=== PATIENT | female | born 1945 | race Caucasian/White ===

== ENCOUNTER 2024-10-12 13:22 | Inpatient (IN) ==
--- NOTE | 2024-10-12 14:34 | Emergency Department Note ---
ED Provider Note History of Present Illness Chief Complaint: Hip Pain Stated Complaint: PAIN IN R HIP, NUMBNESS IN LEG/FOOT Time Seen by Provider: 10/12/24 13:40 79-year-old female who presents to the emergency department with her daughter for evaluation of pain in both thighs, right worse than left. She reports that the pain goes all the way down to her feet. The patient reports that the pain is significantly worsened when she tries to get up and move, improved whenever she rests. The patient reports that she has already seen her PCP with lumbar spine x-rays that were reportedly normal. The patient was also on a course of Flexeril and steroids without relief. The patient was not provided any additional prescription analgesics. The patient denies prior back injuries or other arthritis history. She also denies any swelling of the lower extremities, or personal or family history of blood clots. The patient denies any difficulty with urination or bowel movements, abdominal pain or recent infections. At its worst, the patient rates her discomfort a 10 out of 10. The patient's daughter reports that she has to go up 18 steps to get to the second level to her bedroom, and is having difficulty doing so. She also has a deformity of her left upper extremity, and even with using a cane, she is finding it more difficult to ambulate because of the pain. Home Medications Medication Instructions Recorded Confirmed Type aspirin 81 mg chewable tablet 81 mg PO DAILY #0 tabs 05/08/12 10/12/24 History cholecalciferol (vitamin D3) 50 50 mcg PO DAILY #0 caps 05/08/12 10/12/24 History mcg (2,000 unit) tablet (Vitamin D3) clobetasol 0.05 % topical cream 1 applic topical BID PRN reaction 05/08/12 10/12/24 History ##0 fenofibrate micronized 200 mg 200 mg PO DAILY #0 caps 05/08/12 10/12/24 History capsule oxybutynin chloride 5 mg tablet 5 mg PO TID #0 tabs 05/08/12 10/12/24 History calcium carbonate (Calcium 600) 600 mg PO DAILY 10/12/24 10/12/24 History chlorthalidone 25 mg tablet 25 mg PO DAILY 10/12/24 10/12/24 History cyanocobalamin (vitamin B-12) 500 500 mcg PO DAILY 10/12/24 10/12/24 History mcg tablet (Vitamin B-12) lorazepam 1 mg tablet 1 mg PO BID PRN Anxiety/Stress 10/12/24 10/12/24 History losartan 50 mg tablet 50 mg PO DAILY 10/12/24 10/12/24 History prednisone 10 mg tablets in a dose 10 mg PO DIRECTED 10/12/24 10/12/24 History pack vitamin E 268 mg (400 unit) capsule 268 mg PO DAILY 10/12/24 10/12/24 History Allergies Allergy/AdvReac Type Severity Reaction Status Date / Time amoxicillin [From Augmentin] Allergy Intermediate Diarrhea Unverified 10/12/24 17:43 clavulanic acid Allergy Intermediate Diarrhea Unverified 10/12/24 17:43 [From Augmentin] Sulfa (Sulfonamide Allergy Intermediate Agitated Unverified 10/12/24 17:44 Antibiotics) simvastatin AdvReac Intermediate lichen Verified 10/12/24 17:43 planus rash when dose was increased Past Med/Surg History Problem List Low back pain potentially associated with radiculopathy Ambulatory dysfunction Left leg DVT Pain in both lower extremities (Acute) Thrombosis of both popliteal veins (Acute) Acute UTI (Acute) Medical History Carotid artery stenosis HLD (hyperlipidemia) HTN (hypertension) Female urinary stress incontinence (Unknown) Cholelithiasis without obstruction (Unknown) Surgical History No significant past surgical history Social History Smoking Status: Former smoker Preferred Language: Arabic marital status: Current Living Situation: Spouse and Family Feels Safe at Home: Yes Physical Exam Vital Signs Vital Signs - 24 hr 10/12/24 13:33 10/12/24 13:40 Temperature 36.3 C L Temperature Source Temporal Artery Scan Pulse Rate 85 Respiratory Rate 19 Respiratory Effort / Characteristics Non-Labored Spontaneous Respiratory Depth Normal Normal Respiratory Pattern Regular Blood Pressure 160/65 H Blood Pressure Mean 96 Pulse Oximetry 96 Oxygen Delivery Method Room Air Sepsis Recent Fever Within 48 Hours No Sepsis New/Unexplained Change in Mental Status N/A Sepsis Action Taken by Nursing No Action Required CONSTITUTIONAL: Healthy and well nourished. Alert and oriented X 3. GCS 15. Patient does not appear in any acute distress, and is sitting on the side of the bed on my initial presentation.. HEENT: Normocephalic, atraumatic. Pupils equal, round and reactive. No scleral icterus or conjunctival injection. NECK: Full active range of motion without discomfort. RESPIRATORY: Clear to auscultation bilaterally with no wheezing, crackles, rhonchi or stridor. CARDIOVASCULAR: Regular rate and rhythm with no murmurs, rubs or gallops. GASTROINTESTINAL: Bowel sounds present in all quadrants. Abdomen is protuberant but soft and nontender to palpation. MUSCULOSKELETAL: Examination does not show any discomfort with logroll of the hips or sitting straight leg raise. When the patient tries to move into a Semi- Carrington's position on the bed, she reports pain in her left thigh region. No extremity edema, and pedal pulses are intact. No focal tenderness to palpation through the lower lumbar spine or SI joints. INTEGUMENTARY: No rash or other significant dermatologic conditions noted. HEMATOLOGIC: No ecchymosis or petechiae. PSYCHIATRIC: Positive affect. NEUROLOGIC: Lower extremities are grossly sensory intact. Course Course Patient history and physical exam were performed. Nursing notes reviewed. The patient and daughter voiced concern for her safety, and inability to control her pain at home. The daughter is concerned about her ability to ambulate as she can only use a cane because of the deformity of the left upper extremity. I did discuss possible etiologies for her pain, including lumbar radiculitis versus possibility of DVTs. With anticipation that the patient will likely need placement for rehab, IV access was established, and labs were ordered and drawn. The patient refused any analgesics on initial exam. Bilateral venous ultrasound studies were performed, showing a probable right Bakers cyst, as well as a thrombosis within the left gastrocnemius and popliteal veins. Labs are reviewed to show a moderate leukocytosis without any other concerning findings. Urinalysis is consistent with ongoing infection with positive nitrates, 3+ leukocyte esterase and 4+ bacteria. Findings were discussed with the patient and daughter. With today's findings, as well as the patient's inability to ambulate secondary to bilateral lower extremity pain, I did discuss the possibility of admission with discussion for possible placement for rehab. The patient and daughter were again agreement with this plan. I did discuss the case with our Wagon Driver Salesperson, who indicated that the patient would require admission prior to rehab transfer. The case was then discussed with the [facility], who came to the emergency department for further evaluation and management. They will also review the patient's prior urine cultures and antibiotics provided, as this is not shown on the patient's Dr. Velarde medication list. They also indicated that they would start treatment for her left lower extremity thromboses. The case was also discussed with Dr. Piper, ED attending physician, who agrees with workup and admission planning. Administered Medications Sodium Chloride (Nss) 500 mls @ 80 mls/hr IV .[id number] ANABEL Stop: 10/13/24 01:44 Last Admin: 10/12/24 19:42 Dose: 80 mls/hr Documented By: [facility] Medical Decision Making Medical Records Attestation: I reviewed the patient's medical records. Home Medications was personally reviewed by me Laboratory Data Attestation: I reviewed the patient's lab results. 10/12/24 16:11 10/12/24 15:04 Lab Results 10/12/24 10/12/24 10/12/24 Range/Units 15:04 16:11 17:06 WBC Cancelled 16.94 H RBC Cancelled 5.58 H Hgb Cancelled 15.7 Hct Cancelled 47.2 H MCV Cancelled 84.6 MCH Cancelled 28.1 MCHC Cancelled 33.3 RDW Std Deviation Cancelled 40.2 RDW Coeff of Mariana Cancelled 13.1 Plt Count Cancelled 332 MPV Cancelled 10.0 Immature Gran % (Auto) Cancelled 0.8 Neut % (Auto) Cancelled 82.3 Lymph % (Auto) Cancelled 11.4 Murray % (Auto) Cancelled 5.2 Eos % (Auto) Cancelled 0.1 Baso % (Auto) Cancelled 0.2 Neut # (Auto) Cancelled 13.94 H Lymph # (Auto) Cancelled 1.93 Murray # (Auto) Cancelled 0.88 H Eos # (Auto) Cancelled 0.01 Baso # (Auto) Cancelled 0.04 Immature Gran # (Auto) Cancelled 0.14 Absolute Nucleated RBC Cancelled Nucleated RBC % (auto) Cancelled Neutrophils % (Manual) Cancelled Band Neutrophils % Cancelled Lymphocytes % (Manual) Cancelled Prolymphocyte % Cancelled Reactive Lymphs % (Man) Cancelled Monocytes % (Manual) Cancelled Eosinophils % (Manual) Cancelled Basophils % (Manual) Cancelled Metamyelocytes % (Man) Cancelled Myelocytes % (Man) Cancelled Promyelocytes % (Man) Cancelled Blast Cells % (Manual) Cancelled Plasma Cell % (Manual) Cancelled Other Cells % Cancelled Nucleated RBC % Cancelled Neutrophils # (Manual) Cancelled Band Neutrophils # Cancelled Total Absolute Neuts Cancelled Lymphocytes # (Manual) Cancelled Prolymphocyte # Cancelled Reactive Lymphs # Cancelled Total Abs Lymphocytes Cancelled Monocytes # (Manual) Cancelled Eosinophils # (Manual) Cancelled Basophils # (Manual) Cancelled Metamyelocytes # (Man) Cancelled Myelocytes # (Manual) Cancelled Promyelocytes # (Man) Cancelled Blast Cells # (Man) Cancelled Plasma Cell # (Manual) Cancelled Other Cells # Cancelled Nucleated RBCs # (Man) Cancelled Hypersegmented Neuts Cancelled Hyposegmented Neuts Cancelled Hypogranular Neuts Cancelled Large Granular Lymphs Cancelled # Lrg Granular Lymphs Cancelled Hairy Cells Cancelled Smudge Cells Cancelled Toxic Granulation Cancelled Toxic Vacuolation Cancelled Dohle Bodies Cancelled Nena Rods Cancelled Platelet Estimate Cancelled Hypogranular Platelets Cancelled Giant Platelets Cancelled Platelet Satelliting Cancelled RBC Morphology Cancelled Polychromasia Cancelled Hypochromasia Cancelled Poikilocytosis Cancelled Basophilic Stippling Cancelled Anisocytosis Cancelled Microcytosis Cancelled Macrocytosis Cancelled Spherocytes Cancelled Pappenheimer Bodies Cancelled Sickle Cells Cancelled Target Cells Cancelled Tear Drop Cells Cancelled Ovalocytes Cancelled Stomatocytes Cancelled Evans-Belzoni Bodies Cancelled Echinocytes Cancelled Acanthocytes (Spur) Cancelled Rouleaux Cancelled RBC Agglutinates Cancelled Schistocytes Cancelled ESR 6 (0-30) mm/hr Sezary Cell Cancelled Sodium 135 L (136-145) mmol/L Potassium 3.9 (3.5-5.1) mmol/L Chloride 98 (98-107) mmol/L Carbon Dioxide 28 (21-32) mmol/L Anion Gap 9 (3-11) BUN 36 H (6-23) mg/dl Creatinine 1.22 H (0.6-1.2) mg/dl Est Cr Clr Drug Dosing Not Reportable eGFR 44.86 BUN/Creatinine Ratio 29.5 H (10-20) Glucose 93 (70-99(Fasting)) mg/dl Calcium 9.9 (8.6-10.3) mg/dl Total Bilirubin 0.6 (0.2-1.0) mg/dl AST 24 (13-39) U/L ALT 16 (7-52) U/L Alkaline Phosphatase 31 L (34-104) U/L Total Protein 7.7 (6.0-8.3) gm/dl Albumin 4.4 (3.4-5.0) gm/dl Globulin 3.3 (2.5-4.0) gm/dl Albumin/Globulin Ratio 1.3 (0.9-2) Urine Color Yellow Urine Appearance Clear (Clear) Urine pH 6.0 (4.5-7.5) Ur Specific [place] 1.009 (1.000-1.030) Urine Protein Negative (Negative) Urine Glucose (UA) Negative (Negative) Urine Ketones Negative (Negative) Urine Blood Negative (Negative) Urine Nitrite Positive A (Negative) Urine Bilirubin Negative (Negative) Urine Urobilinogen Negative (Negative) Ur Leukocyte Esterase 3+ H (Negative) Urine WBC (Auto) 21-50 H (0-5) /hpf Urine RBC (Auto) 0-2 (0-2) /hpf U Hyaline Cast (Auto) 0-2 (0-2) /lpf U Epithel Cells (Auto) 0-2 (0-2) /hpf Urine Bacteria (Auto) 4+ H (None Seen) Blood Parasites ID Cancelled Imaging Data Attestation: I personally reviewed and interpreted this imaging study as follows: My Impression: My interpretation of the bilateral venous ultrasound studies of the lower extremities shows a right Jain's cyst, as well as thromboses of the left gastrocnemius and popliteal veins. No additional DVTs are noted throughout the bilateral lower extremities. Radiologist report was also reviewed with concurrence. Radiologist's Impression: Venous Doppler Study 10/12/24 14:07 EXAM: US venous doppler LE BI CLINICAL HISTORY: BLE pain. TECHNIQUE: Ultrasound examination of bilateral lower extremity veins was performed in real time and duplex. One or more of the following were performed- spectral analysis, resistive index, waveform analysis, and pulsed Doppler. COMPARISON: None. FINDINGS: Paired veins in the left popliteal fossae with gastrocnemius vein appear non-compressible and show no flow , signifying thromboses. Normal phasic, non-pulsatile and spontaneous flow is noted in bilateral common femoral, superficial femoral, popliteal, anterior tibial, posterior tibial and peroneal veins. Rest of the visualized veins of both lower extremities demonstrate normal compressibility. No sonographic evidence of acute deep vein thrombosis (DVT) is detected in the rest of the visualized veins of both lower extremities. Compression and Augmentation: All evaluated veins except for the paired left popliteal/gastrocnemius vein compress fully with applied transducer pressure. Augmentation of venous flow is noted with distal compression in the rest of the bilateral lower extremity veins. Additional Findings: A small complicated cyst in the right popliteal fossa measuring 2.1 x 2.2 x 0.7cm. IMPRESSION: 1. Paired left popliteal veins with an acute thrombosed vein, likely the gastrocnemius. 2. A small complicated cyst in the right popliteal fossa measuring 2.1x 2.2 x .7cm. 3. No sonographic evidence of acute DVT was detected in the rest of the bilateral common femoral, superficial femoral, right popliteal, bilateral anterior tibial, posterior tibial, and peroneal veins, at the time of examination. Disclaimer: DVT could be missed early in the disease when clot burden is minimal. For patients with moderate and high pretest probability of DVT and negative ultrasound, the [employer] clinical guidelines recommend testing with a D-dimer assay or repeat ultrasound in 5-7 days. If symptoms worsen, the Society of radiologists in ultrasound recommends repeating ultrasound even earlier. Electronically signed by Cody Matos 10-12-2024 5:15 PM MDM Narrative See ED Or section for further details of today's visit. The patient presents with complaint of bilateral thigh pain, right worse than right that is affecting her inability to safely ambulate at home. The patient reports that her [facility] PCP has already done lumbar spine x-rays, and has treated her with muscle relaxers and corticosteroids without relief. It is noted that the patient does not have any physical exam findings consistent with sciatica or osteoarthritis of the hips. I did order and reviewed bilateral lower extremity venous ultrasound studies, showing thromboses within the left lower extremity, as well as a right Jain's cyst. I again do not suspect that this is what is causing the patient's symptoms. Patient does have a moderate leukocytosis that may be from a persistent UTI, although the patient denies any other concerning symptoms such as fever, nausea, abdominal pain or vomiting. Patient also denies any upper respiratory symptoms, chest pain or other concerning symptoms. Based on today's findings, as well as the patient's inability to ambulate safely secondary to bilateral lower extremity pain, the patient did agree with admission to our facility. The patient was also evaluated by the [facility]. Please see their dictation for further treatment and final disposition. The case was also discussed with Dr. Piper, ED attending physician, who agrees with workup and admission planning. Impression Acute UTI, Thrombosis of both popliteal veins, Pain in both lower extremities Discharge Plan Visit Data Chief Complaint: Hip Pain Stated Complaint: PAIN IN R HIP, NUMBNESS IN LEG/FOOT ED Provider: Belén Piper ED Midlevel Provider: Temo Miller Discharge Problem: Acute UTI, Thrombosis of both popliteal veins, Pain in both lower extremities Patient Disposition: Admitted As Inpatient Discharge Instructions Interventions: ED Discharge Assessment Last Done: 10/12/24 20:43
[2024-10-12 15:35] LABS: Alanine Aminotransferase 16 U/L (7-52); Albumin Globulin Ratio 1.3 (0.9-2); Albumin Level 4.4 gm/dl (3.4-5.0); Alkaline Phosphatase 31 U/L (34-104); Anion Gap 9 (3-11); Aspartate Aminotransferase 24 U/L (13-39); BUN Creatinine Ratio 29.5 (10-20); Bilirubin,Total 0.6 mg/dl (0.2-1.0); Blood Urea Nitrogen 36 mg/dl (6-23); Calcium 9.9 mg/dl (8.6-10.3); Carbon Dioxide 28 mmol/L (21-32); Chloride 98 mmol/L (98-107); Globulin 3.3 gm/dl (2.5-4.0); Glucose 93 mg/dl (70-99(Fasting)); Potassium 3.9 mmol/L (3.5-5.1); Sodium 135 mmol/L (136-145); Total Protein 7.7 gm/dl (6.0-8.3)
[2024-10-12 16:26] LABS: Basophils # (auto) 0.04 K/uL (0.00-0.20); Basophils % (auto) 0.2 %; Eosinophils # (auto) 0.01 K/uL (0.00-0.50); Eosinophils % (auto) 0.1 %; Hematocrit (blood only) 47.2 % (37.0-47.0); Hemoglobin 15.7 g/dl (12.0-16.0); Immature Granulocytes # (auto) 0.14 K/uL (0.01-0.20); Immature Granulocytes % (auto) 0.8 %; Lymphocytes # (auto) 1.93 K/uL (1.20-3.40); Lymphocytes % (auto) 11.4 %; Mean Corpuscular Hemoglobin 28.1 pg (25.0-34.0); Mean Corpuscular Hgb Conc 33.3 g/dL (32.0-36.0); Mean Corpuscular Volume 84.6 fL (80.0-100.0); Monocytes # (auto) 0.88 K/uL (0.11-0.59); Monocytes % (auto) 5.2 %; Neutrophils # (auto) 13.94 K/uL (1.40-6.50); Neutrophils % (auto) 82.3 %; Platelet Count 332 K/uL (130-400); RDW Coefficient of Variation 13.1 % (11.5-14.5); RDW Standard Deviation 40.2 fL (36.4-46.3); Red Blood Count 5.58 M/uL (4.20-5.40); White Blood Count 16.94 K/ul (4.8-10.8)
--- NOTE | 2024-10-12 17:15 | Ultrasound Report ---
EXAM: US venous doppler LE CLINICAL HISTORY: BLE pain. TECHNIQUE: Ultrasound examination of bilateral lower extremity veins was performed in real time and duplex. One or more of the following were performed- spectral analysis, resistive index, waveform analysis, and pulsed Doppler. COMPARISON: None. FINDINGS: Paired veins in the left popliteal fossae with gastrocnemius vein appear non-compressible and show no flow , signifying thromboses. Normal phasic, non-pulsatile and spontaneous flow is noted in bilateral common femoral, superficial femoral, popliteal, anterior tibial, posterior tibial and peroneal veins. Rest of the visualized veins of both lower extremities demonstrate normal compressibility. No sonographic evidence of acute deep vein thrombosis (DVT) is detected in the rest of the visualized veins of both lower extremities. Compression and Augmentation: All evaluated veins except for the paired left popliteal/gastrocnemius vein compress fully with applied transducer pressure. Augmentation of venous flow is noted with distal compression in the rest of the bilateral lower extremity veins. Additional Findings: A small complicated cyst in the right popliteal fossa measuring 2.1 x 2.2 x 0.7cm. IMPRESSION: 1. Paired left popliteal veins with an acute thrombosed vein, likely the gastrocnemius. 2. A small complicated cyst in the right popliteal fossa measuring 2.1x 2.2 x .7cm. 3. No sonographic evidence of acute DVT was detected in the rest of the bilateral common femoral, superficial femoral, right popliteal, bilateral anterior tibial, posterior tibial, and peroneal veins, at the time of examination. Disclaimer: DVT could be missed early in the disease when clot burden is minimal. For patients with moderate and high pretest probability of DVT and negative ultrasound, the [employer] clinical guidelines recommend testing with a D-dimer assay or repeat ultrasound in 5-7 days. If symptoms worsen, the Society of radiologists in ultrasound recommends repeating ultrasound even earlier. Electronically signed by Cody Matos 10-12-2024 5:15 PM
[2024-10-12 17:16] LABS: Appearance Urine Clear (Clear); Bacteria Urine Automated 4+ (None Seen); Bilirubin Urine Negative (Negative); Blood Urine Negative (Negative); Cast Urine Automated 0-2 /lpf (0-2); Color Urine Yellow; Epithelial Cell Urine Auto 0-2 /hpf (0-2); Glucose Urine UA Negative (Negative); Ketones Urine Negative (Negative); Leukocyte Esterase Urine 3+ (Negative); Nitrite Urine Positive (Negative); Protein Urine Negative (Negative); RBC Urine Automated 0-2 /hpf (0-2); Specific Gravity Urine 1.009 (1.000-1.030); Urobilinogen Urine Negative (Negative); WBC Urine Automated 21-50 /hpf (0-5)
--- NOTE | 2024-10-12 18:10 | Emergency Department Note ---
ED Visit Note I was consulted by the Advanced Practice Provider. I personally made/approved the management plan and take responsibility for the patient management. This includes the aspects of: -History/Physical -MDM -This 89-year-old female presented for right hip pain. Patient found to have jose difficulty ging ambulate with bilateral lower extremity pain. Has a left lower extremity PT as well as UTI. .
--- NOTE | 2024-10-12 18:18 | History & Physical Report ---
Date of Service October 12, 2024 Assessment & Plan (1) Acute UTI: (2) Left leg DVT: (3) Ambulatory dysfunction: (4) Low back pain potentially associated with radiculopathy: (5) HTN (hypertension): (6) HLD (hyperlipidemia): (7) Carotid artery stenosis: Plan This is an 79 yr old F who has a significant PMH of HTN, HLD, carotid artery stenosis, Vit D def, stress incontinence, ckd-3, depression who presents to ED 2/2 Back Pain. #Acute low back pain with radiculopathy #Ambulatory dysfunction admit to medical obtain Lumbar Spine MRI PT/OT Scheduled APAP, heat, prn tramadol for moderate pain, IV morphine for severe pain recently completed 10 day steroid pack w/o improvement #Possible Acute UTI pt w/o sx but urine with nitrites and leuks empiric IV rocephin, await culture #LLE DVT --venous duplex: 1. Paired left popliteal veins with an acute thrombosed vein, likely the gastrocnemius. 2. A small complicated cyst in the right popliteal fossa measuring 2.1x 2.2 x .7cm. Initiate apixban 10mg bid x 7 days then 5mg bid thereafter #HTN: chronic, stable continue losartan, hold chlorthalidone in setting of mild renal insuff #CKD-3 baseline cr 1.1, cr 1.22 today, elevated bun, hold chlorthalidone, encourage intake and give 500cc of NS. #DVT ppx: initiate apixaban DNR/DNI PCP: [facility] Dispo: admit to med/surg, PT/oT consults ordered, likely to need rehab given lives at home with daughter who has 18 steps Pt was seen and examined in collaboration with Dr. Mccauley please see addendum I spent a total of 60 minutes coordinating, documenting and providing care for this patient excluding time spent in the performance of separately billed services or time spent by another provider/QHP. History of Present Illness Chief Complaint: Back pain for 11 days. Primary Care Provider: Latrice Narvaez PA-C This is an 79 yr old F who has a significant PMH of HTN, HLD, carotid artery stenosis, Vit D def, stress incontinence, ckd-3, depression who presents to ED 2/2 Back Pain. Reports back pain since October 01. Pain is mostly in the R buttock that is radiating to the left. She has visited 2 separate providers and was prescribed 10 days of prednisone w/o relief. She is having a difficult time ambulating at home and she has having numbness down both of her legs. She has significant leg weakness to the point she could not get in the shower this morning. She does report urinary incontinence, but this has been going on for years. She is moving bowels w/o difficulty and denies any saddle anesthesia. She denies any recent illness. She lives with her daughter who has 18 steps and is unable to tolerate that. She uses a cane to walk. She denies f/c/s, chest pain, sob, n/v/d abd pain. In ED she was hemodynamically stable. Work up revealed possible UTI, although pt denies any dysuria, increased urinary urg/freq or hematuria. Her lab work up revealed a mild renal insuff with a cr of 1.22 and US revealed a LLE popliteal DVT. Allergies Allergy/AdvReac Type Severity Reaction Status Date / Time amoxicillin [From Augmentin] Allergy Intermediate Diarrhea Unverified 10/12/24 17:43 clavulanic acid Allergy Intermediate Diarrhea Unverified 10/12/24 17:43 [From Augmentin] Sulfa (Sulfonamide Allergy Intermediate Agitated Unverified 10/12/24 17:44 Antibiotics) simvastatin AdvReac Intermediate lichen Verified 10/12/24 17:43 planus rash when dose was increased Home Medications Medication Instructions Recorded Confirmed Type aspirin 81 mg chewable tablet 81 mg PO DAILY #0 tabs 05/08/12 10/12/24 History cholecalciferol (vitamin D3) 50 50 mcg PO DAILY #0 caps 05/08/12 10/12/24 History mcg (2,000 unit) tablet (Vitamin D3) clobetasol 0.05 % topical cream 1 applic topical BID PRN reaction 05/08/1209/14 History ##0 fenofibrate micronized 200 mg 200 mg PO DAILY #0 caps 05/08/12 10/12/24 History capsule oxybutynin chloride 5 mg tablet 5 mg PO TID #0 tabs 05/08/12 10/12/24 History calcium carbonate (Calcium 600) 600 mg PO DAILY 10/12/24 10/12/24 History chlorthalidone 25 mg tablet 25 mg PO DAILY 10/12/24 10/12/24 History cyanocobalamin (vitamin B-12) 500 500 mcg PO DAILY 10/12/24 10/12/24 History mcg tablet (Vitamin B-12) lorazepam 1 mg tablet 1 mg PO BID PRN Anxiety/Stress 10/12/24 10/12/24 History losartan 50 mg tablet 50 mg PO DAILY 10/12/24 10/12/24 History prednisone 10 mg tablets in a dose 10 mg PO DIRECTED 10/12/24 10/12/24 History pack vitamin E 268 mg (400 unit) capsule 268 mg PO DAILY 10/12/24 10/12/24 History Past Med/Surg History Problem List (Updated 10/12/24 @ 18:51 by Jen Alcantara PA-C) Low back pain potentially associated with radiculopathy Ambulatory dysfunction Left leg DVT Pain in both lower extremities (Acute) Thrombosis of both popliteal veins (Acute) Acute UTI (Acute) Medical History (Updated 10/12/24 @ 18:51 by Jen Alcantara PA-C) Carotid artery stenosis HLD (hyperlipidemia) HTN (hypertension) Female urinary stress incontinence (Unknown) Cholelithiasis without obstruction (Unknown) Surgical History No significant past surgical history Social History Smoking Status: Former smoker Preferred Language: Bulgarian marital status: Current Living Situation: Spouse and Family Feels Safe at Home: Yes Review of Systems Review of Systems: All systems reviewed & are unremarkable except as noted in HPI & below Physical Exam Physical Exam: please refer to Dr. Mccauley addendum Results & Data Results & Data Vital Signs (Past 12 Hours) Vital Signs Temp Pulse Resp BP Pulse Ox O2 Del Method 10/12/24 13:33 36.3 C L 85 19 160/65 H 96 Room Air Laboratory Results I have independently reviewed and interpreted patient's admitting labs including CBC, CMP, UA Diagnostic Findings Venous Doppler Study 10/12/24 14:07 EXAM: US venous doppler LE BI CLINICAL HISTORY: BLE pain. TECHNIQUE: Ultrasound examination of bilateral lower extremity veins was performed in real time and duplex. One or more of the following were performed- spectral analysis, resistive index, waveform analysis, and pulsed Doppler. COMPARISON: None. FINDINGS: Paired veins in the left popliteal fossae with gastrocnemius vein appear non-compressible and show no flow , signifying thromboses. Normal phasic, non-pulsatile and spontaneous flow is noted in bilateral common femoral, superficial femoral, popliteal, anterior tibial, posterior tibial and peroneal veins. Rest of the visualized veins of both lower extremities demonstrate normal compressibility. No sonographic evidence of acute deep vein thrombosis (DVT) is detected in the rest of the visualized veins of both lower extremities. Compression and Augmentation: All evaluated veins except for the paired left popliteal/gastrocnemius vein compress fully with applied transducer pressure. Augmentation of venous flow is noted with distal compression in the rest of the bilateral lower extremity veins. Additional Findings: A small complicated cyst in the right popliteal fossa measuring 2.1 x 2.2 x 0.7cm. IMPRESSION: 1. Paired left popliteal veins with an acute thrombosed vein, likely the gastrocnemius. 2. A small complicated cyst in the right popliteal fossa measuring 2.1x 2.2 x .7cm. 3. No sonographic evidence of acute DVT was detected in the rest of the bilateral common femoral, superficial femoral, right popliteal, bilateral anterior tibial, posterior tibial, and peroneal veins, at the time of examination. Disclaimer: DVT could be missed early in the disease when clot burden is minimal. For patients with moderate and high pretest probability of DVT and negative ultrasound, the [employer] clinical guidelines recommend testing with a D-dimer assay or repeat ultrasound in 5-7 days. If symptoms worsen, the Society of radiologists in ultrasound recommends repeating ultrasound even earlier. Electronically signed by Cody Matos 10-12-2024 5:15 PM COVID-19 Results Results COVID-19 Adm Lab Results: RBC 5.58 M/uL (4.20-5.40) H 10/12/24 WBC 16.94 K/ul (4.8-10.8) H 10/12/24 Hgb 15.7 g/dl (12.0-16.0) 10/12/24 Hct 47.2 % (37.0-47.0) H 10/12/24 Plt Count 332 K/uL (130-400) 10/12/24 Neutrophils (%) (Auto) 82.3 % 10/12/24 Lymphocytes (%) (Auto) 11.4 % 10/12/24 Monocytes # (Auto) 0.88 K/uL (0.11-0.59) H 10/12/24 Eosinophils # (Auto) 0.01 K/uL (0.00-0.50) 10/12/24 Immature Granulocyte % (Auto) 0.8 % 10/12/24 Neutrophils # (Auto) 13.94 K/uL (1.40-6.50) H 10/12/24 Lymphocytes # (Auto) 1.93 K/uL (1.20-3.40) 10/12/24 Monocytes # (Auto) 0.88 K/uL (0.11-0.59) H 10/12/24 Eosinophils # (Auto) 0.01 K/uL (0.00-0.50) 10/12/24 Basophils # (Auto) 0.04 K/uL (0.00-0.20) 10/12/24 Immature Granulocyte # (Auto) 0.14 K/uL (0.01-0.20) 5 Na 135 mmol/L (136-145) L 10/12/24 K 3.9 mmol/L (3.5-5.1) 10/12/24 Cl 98 mmol/L (98-107) 10/12/24 CO2 28 mmol/L (21-32) 10/12/24 Anion Gap 9 (3-11) 10/12/24 BUN 36 mg/dl (6-23) H 10/12/24 Creatinine 1.22 mg/dl (0.6-1.2) H 10/12/24 BUN/Creatinine Ratio 29.5 (10-20) H 10/12/24 Glucose Level 93 mg/dl (70-99(Fasting)) 10/12/24 Ca 9.9 mg/dl (8.6-10.3) 10/12/24 Total Bilirubin 0.6 mg/dl (0.2-1.0) 10/12/24 AST/SGOT 24 U/L (13-39) 10/12/24 ALT/SGPT 16 U/L (7-52) 10/12/24 Alkaline Phosphatase 31 U/L (34-104) L 10/12/24 Total Protein 7.7 gm/dl (6.0-8.3) 10/12/24 Albumin 4.4 gm/dl (3.4-5.0) 10/12/24 Globulin 3.3 gm/dl (2.5-4.0) 10/12/24 Albumin/Globulin Ratio 1.3 (0.9-2) 10/12/24 Code Status & VTE Plan Code Status DNR/DNI Supervising Physician Co-Signing Physician Notes Ms. Ochoa is an 79 yo woman with 10 day history of intractable back pain with symptoms radiating down right leg, and now left leg GENERAL APPEARANCE: AxOx4, generally well-appearing female with some discomfort otherwise no acute distress. HEENT: NC, AT. MMM. EOMI, clear conjunctiva, oropharynx clear. NECK: Supple without lymphadenopathy. No stiffness or restricted ROM. HEART: Normal rate and regular rhythm, normal S1/S1, no m/r/g LUNGS: CTAB, moving air well. No crackles or wheezes are heard. ABDOMEN: Soft, nontender, nondistended with good bowel sounds heard. BACK: No CVAT, no obvious deformity. EXTREMITIES: Without cyanosis, clubbing or edema. congenital deformity of LUE noted NEUROLOGICAL: Grossly nonfocal. Alert and oriented, moving all 4 extremities. CN not formally tested but appear grossly intact. dorsiflexion 4/5, plantar 5/5 BLE. strength in proximal muscle groups 5/5 Skin: Warm and dry without any rash. #Leukocytosis likely multifactorial iso steroid taper and questionable urinary symptoms #ambulatory dysfunction #Acute back pain with BLE radicular symptoms #DJD on XR two courses of steroids without reprieve now with BLE MRI lumbar spine ordered contingent on results pain management +/- ortho spine consult schedule tylenol, prn tramadol PT/OT #LLE DVT identified on doppler started apixaban 10mg bid x 7 days, then 5mg bid thereforth #Acute cystitis UA notable for nitrate, leuks, and bacteria Start ctx rest of plan as above
[2024-10-12] MEDS: SODIUM CHLORIDE 0.9% 500 ML IV SCH (19:42)
[2024-10-12] MEDS ORDERED: LORazepam 1 MG TAB PO PRN (22:17)
[2024-10-12] MEDS ORDERED: MoRPHine SULFATE 4 MG/ML 1 ML CARP\\VIAL IV PRN (22:17)
[2024-10-12] MEDS ORDERED: FAMOTIDINE 20 MG TAB PO PRN (22:17)
[2024-10-12] MEDS ORDERED: POLYETHYLENE (MIRALAX) 17 GM PACK PO PRN (22:17)
[2024-10-12] MEDS ORDERED: traMADol HCL 50 MG TABLET PO PRN (22:17)
[2024-10-12] MEDS ORDERED: ONDANSETRON INJ 2 MG/ML 2 ML VIAL IV PRN (22:17)
[2024-10-12] MEDS: MELATONIN 3 MG TAB PO PRN (22:47)
[2024-10-12] MEDS: ACETAMINOPHEN 500 MG TAB PO SCH (22:48)
[2024-10-12] MEDS: DOCUSATE SODIUM 100 MG CAP PO SCH (22:48)
[2024-10-12] MEDS: APIXABAN 5 MG TABLET PO SCH (22:50)
[2024-10-12] MEDS: oxyBUTYnin chloride 5 MG TAB PO SCH (22:51)
[2024-10-12] MEDS: cefTRIAXone SODIUM 2,000 MG/50 ML BAG IV SCH (22:51)
--- NOTE | 2024-10-13 00:29 | Magnetic Resonance Report ---
Exam(s): MRI L SPINE Without Contrast EXAM: MR Lumbar Spine Without Intravenous Contrast CLINICAL HISTORY: Reason for exam: low back pain. TECHNIQUE: Magnetic resonance images of the lumbar spine without intravenous contrast in multiple planes. COMPARISON: No relevant prior studies available. FINDINGS: Vertebrae: There are 5 lumbar type vertebral bodies with a mild generalized curved to the left and normal lumbar lordosis. There is a mild grade 1 anterolisthesis of L4 and L5 measuring 5.5 mm. Otherwise, is normal vertebral body height and alignment. The bone mesial is heterogeneous with reactive endplate changes. No acute fracture. Spinal cord: The conus demonstrates a stretch morphology, terminating at T12-L1. Soft tissues: Advanced atrophy of the iliopsoas, paraspinous intraspinous musculature. The aorta and IVC flow voids are intact. The visualized kidneys are unremarkable. DISCS/SPINAL CANAL/NEURAL FORAMINA: L1-L2: There is mild disc degeneration with annular disc bulge flattening the ventral thecal sac with disc extending to the neural foramina without evidence of impingement or significant stenosis. L2-L3: Moderate disc degeneration with annular disc bulge causing a mild left subarticular recess stenosis with disc and osteophyte extending to the neural foramina causing a mild right stenosis without neural impingement. L3-L4: There is mild disc degeneration with annular disc bulge asymmetric to the left causing a mild subarticular recess stenosis with disc and osteophyte extending to the neural foramina causing a mild right stenosis without evidence of neural impingement. L4-L5: There is mild disc degeneration with annular disc bulge causing a severe subarticular recess stenosis with impingement of the transiting L5 nerve roots, superimposed spondylolisthesis and facet arthropathy causing a critical spinal canal stenosis with complete effacement of thecal sac. There is disc and osteophyte extending to the neural foramina causing mild bilateral stenosis without evidence of neural impingement. There is advanced facet arthropathy with moderate to advanced synovitis with bone marrow edema and inflammation of the sinus soft tissues. L5-S1: Moderate disc degeneration with annular disc bulge causing a mild subarticular recess stenosis with disc and osteophyte extending to the neural foramina without evidence of impingement or significant stenosis. IMPRESSION: Mild disc degeneration at L4-5 with annular disc bulge causing a severe subarticular recess stenosis with impingement transiting L5 nerve roots and a critical spinal canal stenosis with effacement of the thecal sac. Recommend neurosurgical consult for decompression. Communications: Verify Receipt Electronically signed by: Agustina Dykes MD 10/13/24 00:28 AM
--- OUTSIDE RECORDS SUMMARY | 2024-10-13 05:17 | External Medical Summary | Summary of Care ---
Author Name Unknown Organization [facility] Address [address] [facility] [place] [address] Phone [phone] Care Team Providers Care Appeals Writer Name Role Phone Latrice Narvaez PA-C Primary Care Provider [phone] Encounter Details Date Type Department Care Team (Late st Contact Info) Description 10/09/2024 Orders Only PATIENT PORTAL DO NOT DELETE THIS DEPT USED BY [place] [id number] Allergies Active Allergy Reactions Criticality Noted Date Comments Sulfa Antibiotics 11/26/2017 Hives, swelling Simvastatin Rash 12/18/2007 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 documented as of this encounter (statuses as of 10/09/2024) Medications CORAL CALCIUM-MAGNESIUM- VIT D 133-66.7-133 MG-MG-UNIT PO CAPS Take by mouth daily . Active ASPIRIN 81 MG PO CHEW 1 pill daily Active clobetasol (TEMOVATE) 0.05 % gelIndications:Lic hen planus may apply twice daily for worst of the Lichen Planus 120 g 5 06/15/20 16 Active LORazepam (ATIVAN) 1 MG TabletIndications: Legal circumstances,Stre ss at home One half to one whole tab by mouth up to three times a day 40 Tab 01/22/20 17 Active Additional Information Patient taking differently: PRN, One half to one whole tab by mouth up to three times a day, Reported on 10/06/2024 meclizine (ANTIVERT) 25 MG TabletIndications: Vertigo Take 1 Tab by mouth 3 times a day as needed for Dizziness. 30 Tab 1 04/19/20 17 Active mirtazapine (REMERON) 15 MG TabletIndications: Persistent insomnia TAKE ONE HALF TAB BY MOUTH AT BEDTIME, MAY INCREASE TO WHOLE TAB - DO NOT MIX WITH LORAZEPAM 30 Tab 1 05/15/20 17 Active Additional Information Patient taking differently: PRN, Reported on 10/06/2024 Cyanocobalamin (B-12) 100 MCG TABS Take by mouth. Activ e vitamin e 100 UNIT Capsule Take 1 Capsule by mouth in the morning. Active Triamcinolone Acetonide 0.1 % External Cream (Aristocort) Apply topically to affected area 2 times a day. Apply to upper back, arms, thighs, legs 160 g 5 09/28/19 21 Active Zinc 50 MG Oral Tablet Take 1 Tablet by mouth in the morning. Active Benzonatate 100 MG Oral Capsule (Tessalon Perles)Indications :History of 2019 novel coronavirus disease (COVID-19) Take 2 Capsules by mouth 3 times a day as needed for Cough. 60 Capsule 1 06/28/20 21 Active Ergocalciferol 1.25 MG (90144 UT) Oral Capsule (Vitamin D2(Drisdol)) Take by mouth 1 Capsule once a week . 12 Capsule 04/26/20 22 Active metroNIDAZOLE 1 % External Gel (Metrogel)Indicati ons:Rosacea Apply topically to affected area 2 times a day. To affected area. 60 g 11 02/09/20 23 Active Ammonium Lactate 12 % External Cream (Lac-Hydrin) Apply to all skin neck down 1-2 times daily 385 g 11 02/09/20 23 Active Vitamin D3 50 MCG (2000 UT) Oral CapsuleIndications :Vitamin D deficiency Take 1 Capsule by mouth in the morning. 90 Capsule 1 02/13/20 24 Active Fenofibrate Micronized 200 MG Oral CapsuleIndications :Dyslipidemia, goal LDL below 100 Take 1 Capsule by mouth in the morning. 90 Capsule 3 03/23/20 24 Active Losartan Potassium 50 MG Oral Tablet (Cozaar)Indication s:Hypertensive kidney disease, stage III (HCC),HTN, goal below 140/90 TAKE 1 TABLET BY MOUTH EVERY DAY IN THE MORNING 100 Tablet 2 04/14/20 24 Active Chlorthalidone 25 MG Oral Tablet (Hygroton)Indicati ons:Hypertensive kidney disease, stage III (HCC),HTN, goal below 140/90 TAKE 1 TABLET BY MOUTH EVERY DAY IN THE MORNING 100 Tablet 2 04/14/20 24 Active Vitamin D3 1.25 MG (42944 UT) Oral CapsuleIndications :Vitamin D deficiency TAKE 1 CAP ONCE A DAY SATURDAY & SATURDAY ONLY. WHEN COMPLETED, START DAILY DOSE AND REPEAT LABS 24 Capsule 05/05/20 24 Active predniSONE 10 MG Oral Tablet (Deltasone)Indicat ions:Acute right-sided low back pain with right-sided sciatica,Degenerat ion of intervertebral disc of lumbar region with discogenic back pain and lower extremity pain Take 5 tabs for 2 days, 4 tabs for 2 days, 3 tabs for 2 days, 2 tabs for 2 days 1 tab for 2 days 30 Tablet 10/04/19 25 Active Cyclobenzaprine HCl 5 MG Oral Tablet (Flexeril)Indicati ons:Piriformis muscle pain Take 1 Tablet by mouth at bedtime. 10 Tablet 10/07/19 25 Active documented as of this encounter (statuses as of 10/09/2024) Active Problems Problem Noted Date Diagnosed Date Chronic kidney disease, stage 3a 03/23/2024 Overview: Per CKD protocol Hypertensive kidney disease with stage 3a chronic kidney disease 02/24/2024 Overview: Per CKD protocol Morbid (severe) obesity due to excess calories 0 02/04/2024 Primary osteoarthritis of right knee 02/27/2022 High risk for fracture due to osteoporosis by DE XA scan 02/19/2019 Cortical age-related cataract of both eyes 02/19 Major depressive disorder, single episode, mild 03/13/2018 Statin intolerance 10/31/2017 Vitamin D deficiency 03/16/2014 Hiatal hernia 06/12/2013 HTN, goal below 140/90 10/04/2010 Assessment & Plan (10/06/2024 1:37 PM EDT): Orders: COMPREHENSIVE METABOLIC PANEL; Future ALBUMIN / CREATININE RATIO, URINE; Future DYSLIPIDEMIA, GOAL LDL BELOW 100 07/04/2009 Overview (07/04/2009): Per Lipid Taxonomy. 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 0 to 44.9 in adult 04/15/2017 03/13/2018 Overview: Per Obesity protocol #1 Obesity 03/12/2017 04/18/2017 Overview: Per Obesity protocol #1 Chronic kidney disease, stage 3 unspecified 09/27/2014 03/26/2024 Overview: Per CKD protocol #1 OBESITY, BMI 30-34 (SEE ACTUAL BMI) 10/06/2009 03/12/2017 Overview (10/06/2009): Per Obesity Taxonomy Callus-like Lesion Point R Elbow 03/22/2008 03/12/2017 Carotid Stenosis, non-symptomatic 03/12/2007 12/30/2008 Overview (12/30/2008): Modified per Carotid Stenosis protocol #10 ADVANCE DIRECTIVE INFORMATION 04/30/2006 10/31/2017 Overview (04/30/2006): No, Advance Directive brochure given to patient. CARDIOVAS SYS SYMP NEC 04/30/200610/04 ACUTE SINUSITIS NOS 04/23/2006 09/02/19 09 Overview (09/02/2008): Resolved per Benign Acute Dxs Protocol #3 Otalgia 04/23/2006 10/04/2010 DYSFUNCT EUSTACHIAN TUBE 04/23/2006 Dermatitis 04/23/2006 11/27/2007 Dyslipidemia, goal to be determined 08/10/2004 07/04/2009 Overview (07/04/2009): Per Lipid Taxonomy. OBESITY, UNSPECIFIED 08/10/2004 010 Overview (10/06/2009): Per Obesity Taxonomy Tobacco use disorder 08/10/2004 012 Menopause 10/31/2017 Palpitations 10/04/2010 documented as of this encounter (statuses as of 10/09/2024) Immunizations Name Administration Dates Next Due COVID-19 mRNA, LNP-s, No Pre serve, 2-Dose Series (Moderna) 01/18/2021,12/21/2020 Pneumococcal Conjugate Vacc, 13 Valent (Prevnar) 04/19/2015 Pneumococcal Polysaccharide PPV23 (Pneumovax) 11/29/2009 Seasonal Influenza Vac., MDV , IM, 0.5 mL (Fluzone) 03/16/2014,03/26/2013,04/22/2012,03/16,05/12/2010,04/16/2008,05/27/20 07,05/15/2006 Seasonal Influenza, PF, 6 M & above, IM , (FluLaval or Fluzone) 05/11/2021,03/25/2019,06/09/2018 Seasonal Influenza, Quadriva lent Hd (Fluzone Hd) 05/22/2022 Seasonal Influenza, Quadriva lent Hd, 65+ Yrs 05/02/2020 Seasonal Influenza, Quadriva lent, No Preserve, IM 05/21/2023,03/22/2017,04/12/2016,07/201404/12/2017 TDAP (age 10 and older)(Boostrix) 04/01/2014 Varicella Zoster Vaccine (Adult) 01/10/2009 documented as of this encounter Social History Tobacco Use Types Packs/Day Years Used Date Smoking Tobacco: Former Cigarettes 0.5 52 1 - 05/09/2012 Smokeless Tobacco: Never Alcohol Use Standard Drinks/Week Comments Yes 0 (1 standard drink = 0.6 oz pur e alcohol) very rare PHQ-2 Answer Date Recorded PHQ Adult Total Score 0 02/10/2024 Hunger Vital Sign Answer Date Recorded Within the past 12 months, y ou worried that your food would run out before you got the money to buy more. Never true 02/08/20 23 Within the past 12 months, t he food you bought just didn't last and you didn't have money to get more. Never true 02/07/2023 Comments No Sex and Gender Information Value Date Recorded Sex Assigned at Not on file Legal Sex Female 5:16 AM EST Gender Identity Female 02/06/2022 2:10 PM EDT Sexual Orientation Not on file Occupation Industry Job Start Date Job End Date Not on file Not on file Not on file Not on file documented as of this encounter Plan of Treatment Upcoming Encounters Date Type Department Care Team (Late st Contact Info) Description 02/17/2025 12:00 PM EDT Appointment Vascular Lab [facility] [address] [place] [address] 02/17/2025 1:00 PM EDT Appointment Vascular Lab [facility] [address] [place] [address] 02/17/2025 1:30 PM EDT Office Visit Vascular Surg [facility] [address] [place] [address] Hernan Conde MD [address] [place] [address] Health Maintenance Due Date Last Done Comments Zoster Vaccines (2 of 3) 03/07/2009 01/10/2009 *BISPHONATE OR OTHER ACCEPTABLE MEDICATION NEEDED FOR OSTEOPOROSIS (REFER TO SMARTSET #1146) 02/15/2024 COVID-19 Vaccine (3 - season) 2024 01/18/2021, 12/21/2020 DTap/Tdap Vaccines (2 - Td or Tdap) 04/01/2024 04/01/2014, 04/14/2003, 07/15/1988 GFR 08/05/2024 02/03/2024, 01/13, 04/17/2022, Additional history exists CKD HGB USE SMARTSET 39003 02/02/202502/02, 01/31/2023, 01/30/2022, Additional history exists CKD PHOS USE SMARTSET 34626 02/02/202501/13, 04/17/2022, 03/03/2020, Additional history exists Albumin/Creatinine Ratio 02/03/2025 02/04/2024, 01/13 DXA Scan 02/04/2025 02/04/2023, 01/13, 03/07/2020, Additional history exists Adult Wellness Visit 02/09/2025 02/10/2024, 02/07/2023, 02/06/2022, Additional history exists Depression Monitoring 02/09/2025 02/10/2024 Mammogram 02/16/2026 02/17/2024, 11/2023, 02/13/2024, Additional history exists Lung Cancer Screening Completed 05/11/2013 Pneumococcal Vaccine: 50+ Years Completed 04/19/2015, 11/29/2009 VITAMIN D LEVEL ONCE IN A LIFETIME-USE SMARTSET# 08060 Completed 02/03/2024, 04/17/2022, 01/30/2022, Additional history exists Influenza Vaccine (FLU shot) Completed , 05/24/2023, 05/21/2023, Additional history exists HPV (Gardasil) Vaccine Aged Out No lo nger eligible based on patient's age to complete this topic Hepatitis B Vaccine Aged Out No longe r eligible based on patient's age to complete this topic MENINGOCOCCAL (MENACTRA/MENVEO) Aged Out No longer eligible based on patient's age to complete this topic Meningitis B Vaccine (Bexsero/Trumemba) Aged Out No longer eligible based on patient's age to complete this topic documented as of this encounter Medical Devices Implanted Type Area General Dentist Device Identifier Shelf Expiration Date Model / Serial / Lot Lens Intraoc 22.5 - [id number] - [id number] Implanted:Qty: 1 on 03/09/2019 by Trav Ashraf MD at [facility] Right: Eye [employer] 10/13/2023 [id number] / [id number] / [id number] Lens Intraoc 23.0 - [id number] - [id number] Implanted:Qty: 1 on 03/17/2019 by Trav Ashraf MD at OR [facility] Left: Eye [employer] 2023 [id number] / [id number] / [id number] documented as of this encounter Advance Directives Documents on File Type Date Recorded Patient Sales Applications Engineer Expl anation Advance Directives and Living Will 02/25/2024 signed on 02/24/2024 - LIVING WILL & HEALTH CARE POA Care Teams Appeals Writer Relationship Specialty Start Date End Date Latrice Narvaez PA-C [address] [address] PCP - General Physician Technician Chemical Cleaning 11/16/20 documented as of this encounter
--- OUTSIDE RECORDS SUMMARY | 2024-10-13 05:17 | External Medical Summary | Summary of Care ---
Author Name Unknown Organization [facility] Address [address] [facility] [place] [address] Phone [phone] Care Team Providers Care Ui Software Engineer Name Role Phone Latrice Narvaez PA-C Primary Care Provider [phone] Reason for Referral * Evaluate & Treat - Unlimited Visits (Within 30 days (routine)) - Authorized Specialty Diagnoses / Procedures Referred By Contfrantz t Referred To Contact Physical Therapy / Physical Medicine And Rehab Diagnoses Degeneration of intervertebral disc of lumbar region with lower extremity pain Piriformis muscle pain Latrice Narvaez PA-C [address] [address] Phone: tel: fax: Referral ID Status Reason Start Date Expiration Date Visits Requested Visits Authorized [id number] Authorized Specialty Services Required 10/06/[phone] Question Answer Referral Priority Within 30 days (routine) Where should this appointment be scheduled? External Comments R sided piriformis syndrome Reason for Visit * Reason Comments Acute Pt is present with neymar benoit. pt states that she is having possible sciatic pain on her R hip. Ongoing since Encounter Details Date Type Department Care Team (Late st Contact Info) Description 10/06/2024 1:20 PM EDT Office Visit [facility] [address] [address] Latrice Narvaez PA-C [address] [address] Degeneration of intervertebral disc of lumbar region with lower extremity pain*; Piriformis muscle pain; HTN, goal below 140/90 Allergies Active Allergy Reactions Criticality Noted Date Comments Sulfa Antibiotics 11/26/2017 Hives, swelling Simvastatin Rash 12/18/2007 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 documented as of this encounter (statuses as of 10/06/2024) Medications CORAL CALCIUM-MAGNESIUM- VIT D 133-66.7-133 MG-MG-UNIT [...] morning. Active Benzonatate 100 MG Oral Capsule (Yari Camarena)Indications :History of 2019 novel coronavirus disease (COVID-19) Take 2 Capsules by mouth 3 times a day as needed for Cough. 60 Capsule 1 06/28/20 21 Active Ergocalciferol 1.25 MG (57442 UT) Oral Capsule (Vitamin D2(Drisdol)) Take by [...] 04/14/20 24 Active Vitamin D3 1.25 MG (19888 UT) Oral CapsuleIndications :Vitamin D deficiency TAKE [...] as of this encounter (statuses as of 10/06/2024) Active Problems Problem Noted Date Diagnosed Date [...] as of this encounter (statuses as of 10/06/2024) Resolved Problems Problem Noted Date Diagnosed Date [...] as of this encounter (statuses as of 10/06/2024) Immunizations Name Administration Dates Next Due COVID-19 [...] 52 1 - 05/09/2012 Smokeless Tobacco: Never Tobacco Cessation:Counseling Given: Not Answered Alcohol Use Standard Drinks/Week Comments Yes 0 [...] on file documented as of this encounter Last Filed Vital Signs Vital Sign Reading Time Taken Comments Blood Pressure 127/58 10/06/2024 1:13 PM EDT Pulse 67 10/06/2024 1:13 PM EDT Temperature 37 °C (98.6 °F) 10/06/2024 1:13 PM EDT Respiratory Rate 16 10/06/2024 1:13 PM EDT Oxygen Saturation 98% 10/06/2024 1:13 PM EDT Inhaled Oxygen Concentration - - Weight - - Height 157.5 cm (5' 2") 10/06/2024 1:13 PM EDT Body Mass Index - - documented in this encounter Progress Notes * Latrice Narvaez PA-C - 10/06/2024 1:19 PM EDT Images from the original note were not included. Subjective Olga Ochoa is a 79 year old female that presents for Acute (Pt is present with daughter. pt states that she is having possible sciatic pain on her R hip. Ongoing since ) Here for recheck She had been in to see Dr Holloway 10/03/2024 [place] to have sciatica Given pred Not really better She [place] out of state and plans to return next week Pain starts in her rump She is shifting her weight off that side that is painful Feels like spasm. Objective BP 127/58 | Pulse 67 | Temp 98.6 °F (37 °C) (Tympanic) | Resp 16 | Ht 5' 2" (1.575 m) | SpO2 98% | BMI 37.97 kg/m² | BSA 2.03 m² BP Readings from Last 3 Encounters: 10/06/24 127/58 10/03/24 151/79 02/12/24 128/68 Wt Readings from Last 3 Encounters: 02/12/24 207 lb 9.6 oz (94.2 kg) 02/10/24 208 lb (94.3 kg) 02/04/24 208 lb 9.6 oz (94.6 kg) BMI Readings from Last 3 Encounters: 10/06/24 37.97 kg/m² 02/12/24 37.07 kg/m² 02/10/24 37.14 kg/m² Ht Readings from Last 3 Encounters: 10/06/24 5' 2" (1.575 m) 02/10/24 5' 2.75" (1.594 m) 02/04/24 5' 2" (1.575 m) General: alert, healthy, and no distress Head: Normocephalic, No masses, lesions, tenderness or abnormalities Heart: regular rate & rhythm, no murmur, no gallops, S-1 normal, and S-2 normal Lungs: chest symmetric with normal AP diameter, no chest deformities noted, no chest wall tenderness, lungs clear to auscultation Back: back symmetric, no curvature, no costovertebral angle tenderness, range of motion is normal Extremities: less than 2 second capillary refill, no joint deformities, effusion, or inflammation, pain with slr on R side Neuro Exam: alert & oriented x 3 with fluent speech, no focal motor/sensory deficits, reflexes normal and symmetric Skin: skin color, texture, turgor are normal, no rashes or significant lesions Assessment and Plan Degeneration of intervertebral disc of lumbar region with lower extremity pain Orders: XR L SPINE 2-3 VIEWS; Future PHYSICAL THERAPY REFERRAL OP Piriformis muscle pain Orders: Cyclobenzaprine HCl 5 MG Oral Tablet (Flexeril); Take 1 Tablet by mouth at bedtime. PHYSICAL THERAPY REFERRAL OP HTN, goal below 140/90 Orders: COMPREHENSIVE METABOLIC PANEL; Future ALBUMIN / CREATININE RATIO, URINE; Future Wrap-Up Rev last ov note Muscle relaxant Discussion with patient of risk and benefit of medication. also discussion of common side affects. patient counseled and is aware and wishes to purse this medication, agrees to call with any issues or concerns. Pt here Latrice Narvaez PA-C 10/06/2024 1:37 PM documented in this encounter Nursing Notes * Rebekah Lama LPN - 10/06/2024 1:12 PM EDT lOga Ochoa is a 79 year old female who presents today for Chief Complaint Patient presents with Acute Pt is present with daughter. pt states that she is having possible sciatic pain on her R hip. Ongoing since documented in this encounter Miscellaneous Notes * Assessment & Plan Note - Latrice Narvaez PA-C - 10/06/2024 1:37 PM EDT Associated Problem(s): HTN, goal below 140/90 Orders: COMPREHENSIVE METABOLIC PANEL; Future ALBUMIN / CREATININE RATIO, URINE; Future documented in this encounter Plan of Treatment Upcoming Encounters Date Type Department Care Team (Late st Contact Info) Description 02/17/2025 12:00 PM EDT Appointment Vascular Lab [facility] [address] [place] [address] 02/17/2025 1:00 PM EDT Appointment Vascular Lab [facility] [address] [place] [address] 02/17/2025 1:30 PM EDT Office Visit Vascular Surg [facility] [address] [place] [address] Hernan Conde MD [address] [place] [address] Pending Results Name Type Priority Associated Diagnoses Date /Time XR L SPINE 2-3 VIEWS Medical Imaging Routine Degeneration of intervertebral disc of lumbar region with lower extremity pain 10/06/2024 2:19 PM EDT Scheduled Orders Name Type Priority Associated Diagnoses Orde r Schedule XR L SPINE 2-3 VIEWS Medical Imaging Routine Degeneration of intervertebral disc of lumbar region with lower extremity pain Expected: 10/06/2024, Expires: 11/06/2025 COMPREHENSIVE METABOLIC PANEL Lab Routine HTN, goal below 140/90 Expected: 10/06/2024 (Approximate), Expires: 10/06/2025 ALBUMIN / CREATININE RATIO, URINE Lab Routine HTN, goal below 140/90 Expected: 10/06/2024 (Approximate), Expires: 10/06/2025 Scheduled Referrals Name Type Priority Associated Diagnoses Orde r Schedule PHYSICAL THERAPY REFERRAL OP Referral Within 30 days (routine) Degeneration of intervertebral disc of lumbar region with lower extremity pain Piriformis muscle pain Ordered: 10/06/2024 Health Maintenance Due Date Last Done Comments Zoster Vaccines (2 of 3) 03/07/2009 01/10/2009 *BISPHONATE OR OTHER ACCEPTABLE MEDICATION NEEDED FOR OSTEOPOROSIS (REFER TO SMARTSET #1146) 02/15/2024 COVID-19 Vaccine ( season) 2024 01/18/2021, 12/21/2020 DTap/Tdap Vaccines (2 - Td or Tdap) 04/01/2024 04/01/2014, 04/14/2003, 07/15/1988 GFR 08/05/2024 02/03/2024, 01/13, 04/17/2022, Additional history exists CKD HGB USE SMARTSET 06614 02/02/202502/02, 01/31/2023, 01/30/2022, Additional history exists CKD PHOS USE SMARTSET 23103 02/02/202501/13, 04/17/2022, 03/03/2020, Additional history exists Albumin/Creatinine Ratio 02/03/2025 02/04/2024, 01/13 DXA Scan 02/04/2025 02/04/2023, 01/13, 03/07/2020, Additional history exists Adult Wellness Visit 02/09/2025 02/10/2024, 02/07/2023, 02/06/2022, Additional history exists Depression Monitoring 02/09/2025 02/10/2024 Mammogram 02/16/2026 02/17/2024, 11/2023, 02/13/2024, Additional history exists Lung Cancer Screening Completed 05/11/2013 Pneumococcal Vaccine: 50+ Years Completed 04/19/2015, 11/29/2009 VITAMIN D LEVEL ONCE IN A LIFETIME-USE SMARTSET# 03183 Completed 02/03/2024, 04/17/2022, 01/30/2022, Additional history exists [...] this encounter Medical Devices Implanted Type Area Monkey Breeder Device Identifier Shelf Expiration Date Model / Serial / Lot Lens Intraoc 22.5 - [id number] - [id number] Implanted:Qty: 1 on 03/09/2019 by Trav Ashraf MD at [facility] Right: Eye [employer] 10/13/2023 [id number] / [id number] / [id number] Lens Intraoc 23.0 - [id number] - [id number] Implanted:Qty: 1 on 03/17/2019 by Trav Ashraf MD at [facility] Left: Eye [employer]OM[employer] 2023 [id number] / [id number] / [id number] documented as of this encounter Visit Diagnoses Diagnosis Degeneration of intervertebral disc of lumbar region with lower extremity pain- Primary Piriformis muscle pain Mylagia and myositis, unspecified HTN, goal below 140/90 Unspecified essential hypertension documented in this encounter Advance Directives Documents on File Type Date Recorded Patient Headmaster/Mistress Expl anation Advance Directives and Living Will 02/25/2024 signed on 02/24/2024 - LIVING WILL & HEALTH CARE POA Care Teams Ui Software Engineer Relationship Specialty Start Date End Date Latrice Narvaez PA-C [facility] [address] [address] PCP - General Physician Consumer Electronics Merchandiser 11/16/20 documented as of this encounter
--- OUTSIDE RECORDS SUMMARY | 2024-10-13 05:18 | External Medical Summary | Summary of Care ---
Author Name Unknown Organization [facility] Address [address] [facility] [place] [address] Phone [phone] Care Team Providers Care Peoplesoft Consultant Name Role Phone Latrice Narvaez PA-C Primary Care Provider [phone] Reason for Visit * Reason Onset Date Comments Health Maintenance 08/13/2024 Encounter Details Date Type Department Care Team (Late st Contact Info) Description 08/13/2024 [facility] [address] [facility] [phone] Latrice Narvaez PA-C [address] [facility] [place] [address] Health Maintenance Allergies Active Allergy Reactions Criticality Noted Date Comments Sulfa Antibiotics 11/26/2017 Hives, swelling Simvastatin Rash 12/18/2007 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 documented as of this encounter (statuses as of 08/13/2024) Medications CORAL CALCIUM-MAGNESIU M-VIT D 133-66.7-133 MG-MG-UNIT PO CAPS Take by mouth daily . Active ASPIRIN 81 MG PO CHEW 1 pill daily Active clobetasol (TEMOVATE) 0.05 % gelIndications:L ichen planus may apply twice daily for worst of the Lichen Planus 120 g 5 6 Active LORazepam (ATIVAN) 1 MG TabletIndication s:Legal circumstances,St ress at home One half to one whole tab by mouth up to three times a day 40 Tab 7 Active Additional Information Patient taking differently: PRN, One half to one whole tab by mouth up to three times a day, Reported on 10/25/2017 meclizine (ANTIVERT) 25 MG TabletIndication s:Vertigo Take 1 Tab by mouth 3 times a day as needed for Dizziness. 30 Tab 1 7 Active mirtazapine (REMERON) 15 MG TabletIndication s:Persistent insomnia TAKE ONE HALF TAB BY MOUTH AT BEDTIME, MAY INCREASE TO WHOLE TAB - DO NOT MIX WITH LORAZEPAM 30 Tab 1 7 Active Additional Information Patient taking differently: PRN, Reported on 02/06/2023 Cyanocobalamin (B-12) 100 MCG TABS Take by mouth. Activ e vitamin e 100 UNIT Capsule Take 1 Capsule by mouth in the morning. Active Triamcinolone Acetonide 0.1 % External Cream (Aristocort) Apply topically to affected area 2 times a day. Apply to upper back, arms, thighs, legs 160 g 5 1 Active Zinc 50 MG Oral Tablet Take 1 Tablet by mouth in the morning. Active Benzonatate 100 MG Oral Capsule (Tessalon Perlchris)Indicatio ns:History of 2019 novel coronavirus disease (COVID-19) Take 2 Capsules by mouth 3 times a day as needed for Cough. 60 Capsule 1 1 Active Ergocalciferol 1.25 MG (77491 UT) Oral Capsule (Vitamin D2(Drisdol)) Take by mouth 1 Capsule once a week . 12 Capsule 2 Active metroNIDAZOLE 1 % External Gel (Metrogel)Indica tions:Rosacea Apply topically to affected area 2 times a day. To affected area. 60 g 11 3 Active Ammonium Lactate 12 % External Cream (Lac-Hydrin) Apply to all skin neck down 1-2 times daily 385 g 11 3 Active Vitamin D3 50 MCG (2000 UT) Oral CapsuleIndicatio ns:Vitamin D deficiency Take 1 Capsule by mouth in the morning. 90 Capsule 1 4 Active Fenofibrate Micronized 200 MG Oral CapsuleIndicatio ns:Dyslipidemia, goal LDL below 100 Take 1 Capsule by mouth in the morning. 90 Capsule 3 4 Active Losartan Potassium 50 MG Oral Tablet (Cozaar)Indicati ons:Hypertensive kidney disease, stage III (HCC),HTN, goal below 140/90 TAKE 1 TABLET BY MOUTH EVERY DAY IN THE MORNING 100 Tablet 2 4 Active Chlorthalidone 25 MG Oral Tablet (Hygroton)Indica tions:Hypertensi ve kidney disease, stage III (HCC),HTN, goal below 140/90 TAKE 1 TABLET BY MOUTH EVERY DAY IN THE MORNING 100 Tablet 2 4 Active Vitamin D3 1.25 MG (83149 UT) Oral CapsuleIndicatio ns:Vitamin D deficiency TAKE 1 CAP ONCE A DAY SATURDAY & SATURDAY ONLY. WHEN COMPLETED, START DAILY DOSE AND REPEAT LABS 24 Capsule 4 Active documented as of this encounter (statuses as of 08/13/2024) Active Problems Problem Noted Date Diagnosed Date [...] hernia 06/12/2013 HTN, goal below 140/90 10/04/2010 DYSLIPIDEMIA, GOAL LDL BELOW 100 07/04/2009 Overview (07/04/2009): Per Lipid Taxonomy. 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 FEM STRESS INCONTINENCE 04/30/2006 Chronic rhinitis 04/23/2006 documented as of this encounter (statuses as of 08/13/2024) Resolved Problems Problem Noted Date Diagnosed Date [...] as of this encounter (statuses as of 08/13/2024) Immunizations Name Administration Dates Next Due COVID-19 [...] on file documented as of this encounter Miscellaneous Notes * Telephone Encounter - Catalina Mendenhall LPN - 08/13/2024 8:09 AM EST Care Gaps Comprehensive Care Outreach Last Office/Telemedicine Visit: Visit date not found (in office), Visit date not found (telemedicine) Next Office Visit: Visit date not found Hemoglobin AIC Results: Lab Results Component Value Date/Time HEMOGLOBIN A1C - [facility] 5.8 (H) 02/03/2024 09:33 AM HEMOGLOBIN A1C - [facility] 5.7 (H) 12/26/2020 10:06 AM BP Readings from Last 1 Encounters: 02/12/24 128/68 Reviewed Health Maintenance below: Health Maintenance Topic Date Due Zoster Vaccines (2 of 3) 03/07/2009 *BISPHONATE OR OTHER ACCEPTABLE MEDICATION NEEDED FOR OSTEOPOROSIS (REFER TO SMARTSET #1146) Never done COVID-19 Vaccine ( season) 2024 DTap/Tdap Vaccines (2 - Td or Tdap) 04/01/2024 GFR 08/05/2024January lab Care Gap Outreach Action Taken: Left message documented in this encounter Plan of Treatment Upcoming Encounters Date Type Department Care Team (Late st Contact Info) Description 02/17/2025 12:00 PM EDT [facility] [address] [place] [address] 02/17/2025 1:00 PM EDT [facility] [address] [place] [address] 02/17/2025 1:30 PM EDT [facility] [address] [place] [address] Hernan Conde MD [address] [place] [address] Health Maintenance Due Date Last Done Comments Zoster Vaccines (2 of 3) 03/07/2009 01/10/2009 *BISPHONATE OR OTHER ACCEPTABLE MEDICATION NEEDED FOR OSTEOPOROSIS (REFER TO SMARTSET #1146) 02/15/2024 COVID-19 Vaccine (3 - season) 2024 01/18/2021, 12/21/2020 DTap/Tdap Vaccines (2 - Td or Tdap) 04/01/2024 04/01/2014, 04/14/2003, 07/15/1988 GFR 08/05/2024 02/03/2024, 01/13, 04/17/2022, Additional history exists CKD HGB USE SMARTSET 25643 02/02/202502/02, 01/31/2023, 01/30/2022, Additional history exists CKD PHOS USE SMARTSET 38469 02/02/202501/13, 04/17/2022, 03/03/2020, Additional history exists Albumin/Creatinine Ratio 02/03/2025 02/04/2024, 01/13 DXA Scan 02/04/2025 02/04/2023, 01/13, 03/07/2020, Additional history exists Adult Wellness Visit 02/09/2025 02/10/2024, 02/07/2023, 02/06/2022, Additional history exists Depression Monitoring 02/09/2025 02/10/2024 Mammogram 02/16/2026 02/17/2024, 0811/2023, 02/13/2024, Additional history exists Lung Cancer Screening Completed 05/11/2013 Pneumococcal Vaccine: 50+ Years Completed 04/19/2015, 11/29/2009 VITAMIN D LEVEL ONCE IN A LIFETIME-USE SMARTSET# 59620 Completed 02/03/2024, 04/17/2022, 01/30/2022, Additional history exists [...] this encounter Medical Devices Implanted Type Area Residential Counselor Device Identifier Shelf Expiration Date Model / Serial / Lot Lens Intraoc 22.5 - [id number] - [id number] Implanted:Qty: 1 on 03/09/2019 by Trav Ashraf MD at OR [facility] Right: Eye [employer] 10/13/2023 [id number] / [id number] / [id number] Lens Intraoc 23.0 - [id number] - [id number] Implanted:Qty: 1 on 03/17/2019 by Trav Ashraf MD at OR [facility] Left: Eye [employer] 2023 [id number] / [id number] / [id number] documented as of this encounter Advance Directives Documents on File Type Date Recorded 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
--- OUTSIDE RECORDS SUMMARY | 2024-10-13 05:18 | External Medical Summary | Summary of Care ---
Author Name Unknown Organization [facility] Address [address] [place] [address] Phone [phone] Care Team Providers Care Gas Attendant Name Role Phone Latrice Narvaez PA-C Primary Care Provider [phone] Reason for Visit * Reason Onset Date Comments Appointment 02/12/2024 Encounter Details Date Type Department Care Team (Late st Contact Info) Description 02/12/2024 Telephone Vascular Surg [facility] [address] [place] [address] Hernan Conde MD [address] [place] [address] Appointment Allergies Active Allergy Reactions Criticality Noted Date Comments Sulfa Antibiotics 11/26/2017 Hives, swelling Simvastatin Rash 12/18/2007 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 documented as of this encounter (statuses as of 04/27/2024) Medications Medication Sig Dispensed Refills Start Date End Date Status CORAL CALCIUM-MAGNESIU M-VIT D 133-66.7-133 MG-MG-UNIT PO [...] to three times a day 40 Tab 07/10/201 7 Active Additional Information Patient taking differently: [...] (B-12) 100 MCG TABS Take by mouth. Active vitamin e 100 UNIT Capsule Take 1 [...] Capsule 1 1 Active Ergocalciferol 1.25 MG (18965 UT) Oral Capsule (Vitamin D2(Drisdol)) Take by mouth 1 Capsule once a week . 12 Capsule 2 Active metroNIDAZOLE 1 % External Gel (Metrogel)Indica tions:Rosacea Apply topically to affected area 2 times a day. To affected area. 60 g 11 3 Active Ammonium Lactate 12 % External Cream (Lac-Hydrin) Apply to all skin neck down 1-2 times daily 385 g 11 3 Active Fenofibrate Micronized 200 MG Oral CapsuleIndicatio ns:Dyslipidemia, goal LDL below 100 Take 1 Capsule by mouth in the morning. 90 Capsule 3 3 03/09/20 24 Discontinued(Ref ill) Losartan Potassium 50 MG Oral Tablet (Cozaar)Indicati ons:Hypertensive kidney disease, stage III (HCC),HTN, goal below 140/90 TAKE 1 TABLET BY MOUTH EVERY DAY IN THE MORNING 90 Tablet 2 4 04/14/20 24 Discontinued Chlorthalidone 25 MG Oral Tablet (Hygroton)Indica tions:HTN, goal below 140/90,Hypertens geronimo kidney disease, stage III (HCC) TAKE 1 TABLET BY MOUTH EVERY DAY IN THE MORNING 90 Tablet 4 04/14/20 24 Discontinued documented as of this encounter (statuses as of 04/27/2024) Active Problems Problem Noted Date Diagnosed Date [...] 10/04/2010 DYSLIPIDEMIA, GOAL LDL BELOW 100 07/04/2009 Overview: Per Lipid Taxonomy. 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 CARDIOVAS SYS SYMP NEC 04/30/200610/04 ACUTE SINUSITIS NOS 04/23/2006 09/02/19 09 Overview: Resolved per Benign Acute Dxs Protocol #3 Otalgia 04/23/2006 10/04/2010 DYSFUNCT EUSTACHIAN TUBE 04/23/2006 Dermatitis 04/23/2006 11/27/2007 Dyslipidemia, goal to be determined 08/10/2004 07/04/2009 Overview: Per Lipid Taxonomy. OBESITY, UNSPECIFIED 08/10/2004 010 Overview: Per Obesity Taxonomy Tobacco use disorder 08/10/2004 012 Menopause 10/31/2017 Palpitations 10/04/2010 documented as of this encounter (statuses as of 04/27/2024) Immunizations Name Administration Dates Next Due COVID-19 [...] Influenza, Quadriva lent, No Preserve, IM 05/21/2023,03/22/2017,04/12/2016,07/201404/12/2017 TD - Tetanus/Diptheria (ADULT) 04/14/2003,1988 TDAP (age 10 and older)(Boostrix) 04/01/2014 Varicella [...] Date Recorded PHQ Adult Total Score 0 02/07/2023 Hunger Vital Sign Answer Date Recorded Within the past 12 months, y ou worried that your food would run out before you got the money to buy more. Never true 02/08/20 23 Within the past 12 months, t he food you bought just didn't last and you didn't have money to get more. Never true 02/07/2023 Sex and Gender Information Value Date Recorded Sex Assigned at Not on file Gender Identity Female 02/06/2022 2:10 PM EDT Sexual Orientation Not on file Job Start Date Occupation Industry Not on file Not on file Not on file documented as of this encounter Miscellaneous Notes * Addendum Note - Ivette Vanessa CRNP - 04/27/2024 4:35 PM EDTAddended by: IVETTE VANESSA on: 04/27/2024 04:35 PM Modules accepted: Orders * Telephone Encounter - Ivette Vanessa CRNP - 04/27/2024 4:34 PM EDT New orders placed (there were active orders from 01/2024). Please schedule testing/clinic. MONY Ricardo 04/27/2024 4:34 PM * Telephone Encounter - Deirdre Bray OSA - 04/27/2024 4:22 PM EDT Pt calling in, she would like to get her appt schedules. No orders on file. Please place orders andcontact pt to schedule. * Telephone Encounter - Azul Newton OSA - 02/12/2024 1:29 PM EDT Patient did not want to schedule today for RTC in 1 year with carotid duplex and UE doppler. She will call in July to make her appointments. documented in this encounter Plan of Treatment Scheduled Orders Name Type Priority Associated Diagnoses Orde r Schedule VASC DUPLEX CAROTID BILAT Medical Imaging Routine Asymptomatic bilateral carotid artery stenosis Subclavian arterial stenosis (HCC) Ordered: 04/27/2024 VASC ARTERIAL DOPPLER UE Medical Imaging Routine Asymptomatic bilateral carotid artery stenosis Subclavian arterial stenosis (HCC) Ordered: 04/27/2024 Health Maintenance Due Date Last Done Comments Zoster Vaccines (2 of 3) 03/07/2009 01/10/2009 *BISPHONATE OR OTHER ACCEPTABLE MEDICATION NEEDED FOR OSTEOPOROSIS (REFER TO SMARTSET #1146) 02/15/2024 COVID-19 Vaccine (3 - season) 2024 01/18/2021, 12/21/2020 Influenza Vaccine (FLU shot) (#1) 2024 05/24/2023, 05/21/2023, 05/22/2022, Additional history exists DTap/Tdap Vaccines (2 - Td or Tdap) 04/01/2024 04/01/2014, 04/14/2003, 07/15/1988 GFR 08/05/2024 02/03/2024, 01/13, 04/17/2022, Additional history exists CKD HGB USE SMARTSET 09924 02/02/202502/02, 01/31/2023, 01/30/2022, Additional history exists CKD PHOS USE SMARTSET 04713 02/02/202501/13, 04/17/2022, 03/03/2020, Additional history exists Albumin/Creatinine Ratio 02/03/2025 02/04/2024, 01/13 DXA Scan 02/04/2025 02/04/2023, 01/13, 03/07/2020, Additional history exists Adult Wellness Visit 02/09/2025 02/10/2024, 02/07/2023, 02/06/2022, Additional history exists Depression Monitoring 02/09/2025 02/10/2024 Mammogram 02/16/2026 02/17/2024, 08/0 11/2023, 02/13/2024, Additional history exists Lung Cancer Screening Completed 05/11/2013 Pneumococcal Vaccine: 65+ Years Completed 04/19/2015, 11/29/2009 VITAMIN D LEVEL ONCE IN A LIFETIME-USE SMARTSET# 19483 Completed 02/03/2024, 04/17/2022, 01/30/2022, Additional history exists HPV (Gardasil) Vaccine Aged Out No lo nger eligible based on patient's age to complete this topic Hepatitis B Vaccine Aged Out No longe r eligible based on patient's age to complete this topic MENINGOCOCCAL (MENACTRA/MENVEO) Aged Out No longer eligible based on patient's age to complete this topic documented as of this encounter Medical Devices Implanted Type Area Sap Business Intelligence Consultant Device Identifier Shelf Expiration Date Model / Serial / Lot Lens Intraoc 22.5 - [id number] - [id number] Implanted:Qty: 1 on 03/09/2019 by Trav Ashraf MD at OR [facility] Right: Eye [employer] 10/13/2023 [id number] / [id number] / [id number] Lens Intraoc 23.0 - [id number] - [id number] Implanted:Qty: 1 on 03/17/2019 by Trav Ashraf MD at OR [facility] Left: Eye [employer] 2023 [id number] / [id number] / [id number] documented as of this encounter Visit Diagnoses Diagnosis Asymptomatic bilateral carotid artery stenosis- Primary Occlusion and stenosis of multiple and bilateral precerebral arteries without mention of cerebral infarction Subclavian arterial stenosis (HCC) Stricture of artery documented in this encounter Advance Directives Documents on File Type Date Recorded 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
--- OUTSIDE RECORDS SUMMARY | 2024-10-13 05:18 | External Medical Summary | Summary of Care ---
Author Name Unknown Organization [facility] Address [address] [place] [address] Phone [phone] Care Team Providers Care Business Mgr Name Role Phone Latrice Narvaez PA-C Primary Care Provider [phone] Reason for Visit * Reason Onset Date Comments Appointment 02/12/2024 Encounter Details Date Type Department Care Team (Late st Contact Info) Description 02/12/2024 Telephone Vascular Surg [facility] [address] [place] [address] Hernan Conde MD [address] [place] [address] Appointment Allergies Active Allergy Reactions Criticality Noted Date Comments Sulfa Antibiotics 11/26/2017 Hives, swelling Simvastatin Rash 12/18/2007 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 documented as of this encounter (statuses as of 05/04/2024) Medications Medication Sig Dispensed Refills Start Date [...] Capsule 1 1 Active Ergocalciferol 1.25 MG (31387 UT) Oral Capsule (Vitamin D2(Drisdol)) Take by [...] as of this encounter (statuses as of 05/04/2024) Active Problems Problem Noted Date Diagnosed Date [...] as of this encounter (statuses as of 05/04/2024) Resolved Problems Problem Noted Date Diagnosed Date [...] as of this encounter (statuses as of 05/04/2024) Immunizations Name Administration Dates Next Due COVID-19 [...] encounter Miscellaneous Notes * Telephone Encounter - Harris Moseley OSA - 05/03/2024 12:37 PM EDT Spoke to pt. Would like a call back 05/04 after 5 RAVINDER Burgos * Addendum Note - Ivette Vanessa CRNP [...] Additional history exists CKD HGB USE SMARTSET 69720 02/02/202502/02, 01/31/2023, 01/30/2022, Additional history exists CKD PHOS USE SMARTSET 32901 02/02/202501/13, 04/17/2022, 03/03/2020, Additional history exists Albumin/Creatinine Ratio 02/03/2025 02/04/2024, 01/13 DXA Scan 02/04/2025 02/04/2023, 01/13, 03/07/2020, Additional history exists Adult Wellness Visit 02/09/2025 02/10/2024, 02/07/2023, 02/06/2022, Additional history exists Depression Monitoring 02/09/2025 02/10/2024 Mammogram 02/16/2026 02/17/2024, 08/0 11/2023, 02/13/2024, Additional history exists Lung Cancer Screening Completed 05/11/2013 Pneumococcal Vaccine: 65+ Years Completed 04/19/2015, 11/29/2009 VITAMIN D LEVEL ONCE IN A LIFETIME-USE SMARTSET# 78091 Completed 02/03/2024, 04/17/2022, 01/30/2022, Additional history exists [...] this encounter Medical Devices Implanted Type Area Manifest/Order Organizer Print Orders Device Identifier Shelf Expiration Date Model / Serial / Lot Lens Intraoc 22.5 - [id number] - [id number] Implanted:Qty: 1 on 03/09/2019 by Trav Ashraf MD at OR [facility] Right: Eye [employer] 10/13/2023 [id number] / [id number] / [id number] Lens Intraoc 23.0 - [id number] - [id number] Implanted:Qty: 1 on 03/17/2019 by Trav Ashraf MD at OR [facility] Left: Eye [employer] 2023 [id number] / [id number] / [id number] documented as of this encounter Visit Diagnoses Diagnosis Asymptomatic bilateral carotid artery stenosis- Primary Occlusion and stenosis of multiple and bilateral precerebral arteries without mention of cerebral infarction Subclavian arterial stenosis (HCC) Stricture of artery documented in this encounter Advance Directives Documents on File Type Date Recorded 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
--- OUTSIDE RECORDS SUMMARY | 2024-10-13 05:18 | External Medical Summary | Summary of Care ---
Author Name Unknown Organization [facility] Address [address] [facility] [place] [address] Phone [phone] Care Team Providers Care Window Trimmer Apprentice Name Role Phone Latrice Narvaez PA-C Primary Care Provider [phone] Reason for Visit * Reason Comments Joint Pain Encounter Details Date Type Department Care Team (Latest Contact Info) Description 10/03/2024 3:00 PM EDT Office Visit Family Practice [facility] [address] [place] [address] Theodora Holloway MD [address] [facility] [place] [address] Acute right-sided low back pain with right-sided sciatica*; Degeneration of intervertebral disc of lumbar region with discogenic back pain and lower extremity pain; Hypertensive kidney disease with stage 3a chronic kidney disease (HCC) Allergies Active Allergy Reactions Criticality Noted Date Comments Sulfa Antibiotics 11/26/2017 Hives, swelling Simvastatin Rash 12/18/2007 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 documented as of this encounter (statuses as of 10/03/2024) Medications CORAL CALCIUM-MAGNESIUM- VIT D 133-66.7-133 MG-MG-UNIT [...] to three times a day, Reported on 10/03/2024 meclizine (ANTIVERT) 25 MG TabletIndications: Vertigo Take [...] Information Patient taking differently: PRN, Reported on 10/03/2024 Cyanocobalamin (B-12) 100 MCG TABS Take by [...] 1 06/28/20 21 Active Ergocalciferol 1.25 MG (16427 UT) Oral Capsule (Vitamin D2(Drisdol)) Take by [...] 04/14/20 24 Active Vitamin D3 1.25 MG (76299 UT) Oral CapsuleIndications :Vitamin D deficiency TAKE [...] 2 days 30 Tablet 10/04/19 25 Active documented as of this encounter (statuses as of 10/03/2024) Active Problems Problem Noted Date Diagnosed Date [...] as of this encounter (statuses as of 10/03/2024) Resolved Problems Problem Noted Date Diagnosed Date [...] as of this encounter (statuses as of 10/03/2024) Immunizations Name Administration Dates Next Due COVID-19 [...] Sign Reading Time Taken Comments Blood Pressure 151/79 10/03/2024 3:15 PM EDT Pulse 81 10/03/2024 3:15 PM EDT Temperature 37.2 °C (99 °F) 10/03/2024 3:15 PM EDT Respiratory Rate - - Oxygen Saturation 92% 10/03/2024 3:15 PM EDT Inhaled Oxygen Concentration - - Weight - - Height - - Body Mass Index - - documented in this encounter Progress Notes * Theodora Holloway MD - 10/03/2024 3:15 PM EDT SUBJECTIVE: Olga Ochoa is a 79 year old female. Chief Complaint Patient presents with Joint Pain Nursing Notes: Xena Leroy CCMA 10/03/24 1518 Signed Pt is here today for right hip pain pt stated its a on going problem with the hip pt stated about three weeks ago its when the pain is really bad pt was not able to give me weight today due to the pain pt is not taking anything for pain pt was taking tylenol and naids and stopped pt stated it feelslike her leg is going to give out pt did not have a fall pt lives in [place] and here to visit HPI: Patient presents today for acute appointment with symptoms of pain in her right hip for the last 2 days. She is visiting from [place] and was planning to return soon. Denies any injuries or falls. Pain is located on the right butt cheek which radiates along the side of the leg to just above the knee. Has difficulty walking, feels that her leg may give out, has not fallen down, denies any knee pain previous imaging on file reviewed and as noted below. Has been taking Tylenol without much improvement EXAM XR L SPINE COMPLETE-03/07/2020 12:35 pm HISTORY R sided lumbar and hip pain COMPARISON None TECHNIQUE Five views of the lumbar spine are submitted. FINDINGS There is grade 1 spondylolisthesis of L4-5 measuring approximately 3 mm. Alignment elsewhere is well maintained. No compression fractures are seen. There is ervx-oc-vnkegzci multilevel degenerative disc disease affecting L2 through S1 with the most severe disc space narrowing at L5-S1. There is no spondylolysis. Atherosclerotic calcifications present throughout the abdominal aorta. Surgical clipsoverlie the right upper quadrant. IMPRESSION Multilevel degenerative disc disease as discussed above. Grade 1 spondylolisthesis of L4-5. 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 CAROTID STENOSIS, NON-SYMPTOMATIC DYSLIPIDEMIA, GOAL LDL BELOW 100 HTN, goal below 140/90 Hiatal hernia Vitamin D deficiency Statin intolerance Major depressive disorder, single episode, mild (HCC) High risk for fracture due to osteoporosis by DEXA scan Cortical age-related cataract of both eyes Primary osteoarthritis of right knee Morbid (severe) obesity due to excess calories (HCC) Hypertensive kidney disease with stage 3a chronic kidney disease (HCC) Chronic kidney disease, stage 3a (HCC) Current Outpatient Medications Medication Sig Dispense Refill CORAL [id number] D 133-66.7-133 MG-MG-UNIT PO CAPS Take by mouth daily . ASPIRIN 81 MG PO CHEW 1 pill daily clobetasol (TEMOVATE) 0.05 % gel may apply twice daily for worst of the Lichen Planus 120 g 5 LORazepam (ATIVAN) 1 MG Tablet One half to one whole tab by mouth up to three times a day (Patient taking differently: as needed. One half to one whole tab by mouth up to three times a day) 40 Tab 0 meclizine (ANTIVERT) 25 MG Tablet Take 1 Tab by mouth 3 times a day as needed for Dizziness. 30 Tab1 mirtazapine (REMERON) 15 MG Tablet TAKE ONE HALF TAB BY MOUTH AT BEDTIME, MAY INCREASE TO WHOLE TAB- DO NOT MIX WITH LORAZEPAM (Patient taking differently: as needed.) 30 Tab 1 Cyanocobalamin (B-12) 100 MCG TABS Take by mouth. vitamin e 100 UNIT Capsule Take 1 Capsule by mouth in the morning. Triamcinolone Acetonide 0.1 % External Cream (Aristocort) Apply topically to affected area 2 times a day. Apply to upper back, arms, thighs, legs 160 g 5 Zinc 50 MG Oral Tablet Take 1 Tablet by mouth in the morning. Benzonatate 100 MG Oral Capsule (Tessalon Perles) Take 2 Capsules by mouth 3 times a day as needed for Cough. 60 Capsule 1 Ergocalciferol 1.25 MG (06039 UT) Oral Capsule (Vitamin D2(Drisdol)) Take by mouth 1 Capsule once aweek . 12 Capsule 0 metroNIDAZOLE 1 % External Gel (Metrogel) Apply topically to affected area 2 times a day. To affected area. 60 g 11 Ammonium Lactate 12 % External Cream (Lac-Hydrin) Apply to all skin neck down 1- 2 times daily 385 g11 Vitamin D3 50 MCG (2000 UT) Oral Capsule Take 1 Capsule by mouth in the morning. 90 Capsule 1 Fenofibrate Micronized 200 MG Oral Capsule Take 1 Capsule by mouth in the morning. 90 Capsule 3 Losartan Potassium 50 MG Oral Tablet (Cozaar) TAKE 1 TABLET BY MOUTH EVERY DAY IN THE MORNING 100 Tablet 2 Chlorthalidone 25 MG Oral Tablet (Hygroton) TAKE 1 TABLET BY MOUTH EVERY DAY IN THE MORNING 100 Tablet 2 Vitamin D3 1.25 MG (13379 UT) Oral Capsule TAKE 1 CAP ONCE A DAY SATURDAY & SATURDAY ONLY. WHEN COMPLETED, START DAILY DOSE AND REPEAT LABS 24 Capsule 0 No current facility-administered medications for this visit. Review of patient's allergies indicates: Allergen Reactions Sulfa Antibiotics Hives, swelling Zocor [Simvastatin] Rash 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 OBJECTIVE: BP 151/79 | Pulse 81 | Temp 99 °F (37.2 °C) | SpO2 92% PHYSICAL EXAM: General: alert, healthy, no distress, well nourished and well developed Heart: regular rate & rhythm Lungs: lungs clear to auscultation Extremities: no edema,fair rom hip jts Back: -no rash, No spine or SI joint tenderness.no paraspinous spasm Neuro: alert, gait -antalgic, had difficulty getting up onto the exam table, at come in a wheelchair,gross motor normal, gross sensation normal,reflexes normal and symmetric, SLR+ Rt ASSESSMENT/PLAN: Acute right-sided low back pain with right-sided sciatica (Primary) - predniSONE 10 MG Oral Tablet (Deltasone); Take 5 tabs for 2 days, 4 tabs for 2 days, 3 tabs for 2 days, 2 tabs for 2 days 1 tab for 2 days Degeneration of intervertebral disc of lumbar region with discogenic back pain and lower extremity pain - predniSONE 10 MG Oral Tablet (Deltasone); Take 5 tabs for 2 days, 4 tabs for 2 days, 3 tabs for 2days, 2 tabs for 2 days 1 tab for 2 days Hypertensive kidney disease with stage 3a chronic kidney disease (HCC) The potential side effects of this medication have been discussed with the patient. Call if any significant problems with these are experienced. Advised may take prednisone 1 tablet tonight and start Pred taper from tomorrow, start vhun-ieu-cwccypj lidocaine patches once daily. Advised to apply warm moist /cool compress to the affected areas for 15 minutes 3-4 times daily till better. If not better would need physical therapy. Follow Up: Return if symptoms worsen or fail to improve. (This note was completed using the dictation program Fluency Direct. As such, there may be misspellings, word substitutions, or other variations that should not change the essence of the clinical content of this encounter note. If there is need for further clarification, please direct questions to the provider listed above.) Patient and / caregiver verbalize understanding of above instructions and agrees with plan of care. Theodora Holloway MD 10/03/2024 documented in this encounter Nursing Notes * [facility] 10/03/2024 3:08 PM EDT Pt is here today for right hip pain pt stated its a on going problem with the hip pt stated about three weeks ago its when the pain is really bad pt was not able to give me weight today due to the pain pt is not taking anything for pain pt was taking tylenol and naids and stopped pt stated it feelslike her leg is going to give out pt did not have a fall pt lives in [place] and here to visit documented in this encounter Plan of Treatment Upcoming Encounters Date Type Department Care Team (Late st Contact Info) Description 02/17/2025 12:00 PM EDT Appointment [facility] [address] [place] [address] 02/17/2025 1:00 PM EDT Appointment [facility] [address] [place] [address] 02/17/2025 1:30 PM EDT Office Visit V[facility] [address] [place] [address] Hernan Conde MD [address] [place] [address] Health Maintenance Due Date Last Done Comments Zoster Vaccines (2 of 3) 03/07/2009 01/10/2009 *BISPHONATE OR OTHER ACCEPTABLE MEDICATION NEEDED FOR OSTEOPOROSIS (REFER TO SMARTSET #1146) 02/15/2024 COVID-19 Vaccine ( season) 2024 01/18/2021, 12/21/2020 DTap/Tdap Vaccines (2 - Td or Tdap) 04/01/2024 04/01/2014, 04/14/2003, 07/15/1988 GFR 08/05/2024 02/03/2024, 01/13, 04/17/2022, Additional history exists CKD HGB USE SMARTSET 68934 02/02/202502/02, 01/31/2023, 01/30/2022, Additional history exists CKD PHOS USE SMARTSET 63002 02/02/202501/13, 04/17/2022, 03/03/2020, Additional history exists Albumin/Creatinine Ratio 02/03/2025 02/04/2024, 01/13 DXA Scan 02/04/2025 02/04/2023, 01/13, 03/07/2020, Additional history exists Adult Wellness Visit 02/09/2025 02/10/2024, 02/07/2023, 02/06/2022, Additional history exists Depression Monitoring 02/09/2025 02/10/2024 Mammogram 02/16/2026 02/17/2024, 08/11/2023, 02/13/2024, Additional history exists Lung Cancer Screening Completed 05/11/2013 Pneumococcal Vaccine: 50+ Years Completed 04/19/2015, 11/29/2009 VITAMIN D LEVEL ONCE IN A LIFETIME-USE SMARTSET# 73807 Completed 02/03/2024, 04/17/2022, 01/30/2022, Additional history exists [...] this encounter Medical Devices Implanted Type Area Manual Tester Device Identifier Shelf Expiration Date Model / Serial / Lot Lens Intraoc 22.5 - [id number] - [id number] Implanted:Qty: 1 on 03/09/2019 by Trav Ashraf MD at OR [facility] Right: Eye [employer]OM[employer] 10/13/2023 [id number] / [id number] / [id number] Lens Intraoc 23.0 - [id number] - [id number] Implanted:Qty: 1 on 03/17/2019 by Trav Ashraf MD at OR [facility] Left: Eye [employer]CH [employer] LOMB 2023 [id number] / [id number] / [id number] documented as of this encounter Visit Diagnoses Diagnosis Acute right-sided low back pain with right-sided sciatica- Primary Degeneration of intervertebral disc of lumbar region with discogenic back pain and lower extremity pain Hypertensive kidney disease with stage 3a chronic kidney disease (HCC) documented in this encounter Advance Directives Documents on File Type Date Recorded Patient Child Nutrition Director Expl anation Advance Directives and Living Will 02/25/2024 signed on 02/24/2024 - LIVING WILL & HEALTH CARE POA Care Teams Window Trimmer Apprentice Relationship Specialty Start Date End Date Latrice Narvaez PA-C [address] [facility] [place] [address] PCP - General Physician Paralegal Secretary 11/16/20 documented as of this encounter"
--- OUTSIDE RECORDS SUMMARY | 2024-10-13 05:18 | External Medical Summary | Summary of Care ---
Author Name Unknown Organization [facility] Address [address] [facility] [place] [address] Phone [phone] Care Team Providers Care Machines Technician Name Role Phone Latrice Narvaez PA-C Primary Care Provider [phone] Reason for Visit * Reason Onset Date Comments Advice 04/27/2024 Encounter Details Date Type Department Care Team (Late st Contact Info) Description 04/27/2024 Telephone [facility] DEPT CLOSED - 07/02/24 [address] [facility] [place] [address] Latrice Narvaez PA-C [address] [place] [address] Advice Allergies Active Allergy Reactions Criticality Noted Date Comments Sulfa Antibiotics 11/26/2017 Hives, swelling Simvastatin Rash 12/18/2007 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 documented as of this encounter (statuses as of 07/27/2024) Medications CORAL CALCIUM-MAGNESIU M-VIT D 133-66.7-133 MG-MG-UNIT [...] Capsule 1 1 Active Ergocalciferol 1.25 MG (00352 UT) Oral Capsule (Vitamin D2(Drisdol)) Take by [...] THE MORNING 100 Tablet 2 4 Active documented as of this encounter (statuses as of 07/27/2024) Active Problems Problem Noted Date Diagnosed Date [...] as of this encounter (statuses as of 07/27/2024) Resolved Problems Problem Noted Date Diagnosed Date [...] as of this encounter (statuses as of 07/27/2024) Immunizations Name Administration Dates Next Due COVID-19 [...] encounter Miscellaneous Notes * Telephone Encounter - Catherine Manley LPN - 04/27/2024 4:37 PM EDT Searched in Chart. Found in 2020 that Latrice wrote patient and informed her blood type is A+ Patient informed. * Telephone Encounter - Nesha Whalen LPN - 04/27/2024 4:28 PM EDT Left message for pt to call back. Blood type is not in chart Insurance will not cover blood typing test When pt goes to donate blood, they will check blood type * Telephone Encounter - Carin Cohen OSA - 04/27/2024 4:11 PM EDT Pt advised she wants to donate blood but needs to know her blood type. Pt would like to get a call back from a nurse if they could advise what her blood type is or if there's a test she can get done to find out what her blood type is. Please call pt back. Advised of 48hr tat thank you documented in this encounter Plan of Treatment Upcoming Encounters Date Type Department Care Team (Late st Contact Info) Description 02/17/2025 12:00 PM EDT Appointment Vascular Lab [address] [address] 02/17/2025 1:00 PM EDT Appointment Vascular Lab [address] [address] 02/17/2025 1:30 PM EDT Office Visit Vascular Surg [address] [address] Hernan Conde MD [address] [place] [address] Health Maintenance Due Date Last Done Comments Zoster Vaccines (2 of 3) 03/07/2009 01/10/2009 *BISPHONATE OR OTHER ACCEPTABLE MEDICATION NEEDED FOR OSTEOPOROSIS (REFER TO SMARTSET #1146) 02/15/2024 COVID-19 Vaccine (3 - season) 2024 01/18/2021, 12/21/2020 DTap/Tdap Vaccines (2 - Td or Tdap) 04/01/2024 04/01/2014, 04/14/2003, 07/15/1988 GFR 08/05/2024 02/03/2024, 01/13, 04/17/2022, Additional history exists CKD HGB USE SMARTSET 88935 02/02/202502/02, 01/31/2023, 01/30/2022, Additional history exists CKD PHOS USE SMARTSET 39409 02/02/202501/13, 04/17/2022, 03/03/2020, Additional history exists Albumin/Creatinine Ratio 02/03/2025 02/04/2024, 01/13 DXA Scan 02/04/2025 02/04/2023, 01/13, 03/07/2020, Additional history exists Adult Wellness Visit 02/09/2025 02/10/2024, 02/07/2023, 02/06/2022, Additional history exists Depression Monitoring 02/09/2025 02/10/2024 Mammogram 02/16/2026 02/17/2024, 0811/2023, 02/13/2024, Additional history exists Lung Cancer Screening Completed 05/11/2013 Pneumococcal Vaccine: 50+ Years Completed 04/19/2015, 11/29/2009 VITAMIN D LEVEL ONCE IN A LIFETIME-USE SMARTSET# [id number] Completed 02/03/2024, 04/17/2022, 01/30/2022, Additional history exists [...] this encounter Medical Devices Implanted Type Area Terminal Carman Device Identifier Shelf Expiration Date Model / Serial / Lot Lens Intraoc 22.5 - [id number] - [id number] Implanted:Qty: 1 on 03/09/2019 by Trav Ashraf MD at OR [facility] Right: Eye [employer]OM[employer] 10/13/2023 [id number] / [id number] / [id number] Lens Intraoc 23.0 - [id number] - [id number] Implanted:Qty: 1 on 03/17/2019 by Trav Ashraf MD at OR [facility] Left: Eye [employer]OM[employer] 2023 [id number] / [id number] / [id number] documented as of this encounter Advance Directives Documents on File Type Date Recorded Patient Wire Basket Maker Expl anation Advance Directives and Living Will 02/25/2024 signed on 02/24/2024 - LIVING WILL & HEALTH CARE POA Care Teams Machines Technician Relationship Specialty Start Date End Date Latrice Narvaez PA-C PCP - General Physician Construction Equipment Operator 11/16/20 documented as of this encounter
--- OUTSIDE RECORDS SUMMARY | 2024-10-13 05:18 | External Medical Summary | Summary of Care ---
Author Name Unknown Organization [facility] Address [address] [place] [address] Phone [phone] Care Team Providers Care Behavioral Therapy Coordinator Name Role Phone Latrice Narvaez PA-C Primary Care Provider [phone] Reason for Visit * Reason Onset Date Comments Order Request 02/18/2024 Encounter Details Date Type Department Care Team (Late st Contact Info) Description 02/18/2024 Telephone Radiology, [address] [place] [address] Latrice Narvaez PA-C [address] [place] [address] Order Request Allergies Active Allergy Reactions Criticality Noted Date Comments Sulfa Antibiotics 11/26/2017 Hives, swelling Simvastatin Rash 12/18/2007 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 documented as of this encounter (statuses as of 05/19/2024) Medications Medication Sig Dispensed Refills Start Date [...] Active Benzonatate 100 MG Oral Capsule (Tessalon Perles)Indicatio ns:History of 2019 novel coronavirus disease (COVID-19) Take 2 Capsules by mouth 3 times a day as needed for Cough. 60 Capsule 1 1 Active Ergocalciferol 1.25 MG (14717 UT) Oral Capsule (Vitamin D2(Drisdol)) Take by [...] MORNING 90 Tablet 4 04/14/20 24 Discontinued Vitamin D3 1.25 MG (79635 UT) Oral CapsuleIndicatio ns:Vitamin D deficiency Take 1 Capsule by mouth once a day Saturday and only. When completed, start daily dose and repeat labs 24 Capsule 4 05/05/20 24 Discontinued documented as of this encounter (statuses as of 05/19/2024) Active Problems Problem Noted Date Diagnosed Date [...] as of this encounter (statuses as of 05/19/2024) Resolved Problems Problem Noted Date Diagnosed Date [...] as of this encounter (statuses as of 05/19/2024) Immunizations Name Administration Dates Next Due COVID-19 [...] encounter Miscellaneous Notes * Telephone Encounter - Kimberly Silva LPN - 02/19/2024 8:31 AM EDT Received a call from Radiology requesting signature of order as patient has an appointment today at2:00 * Telephone Encounter - Jelly Reaves RDMS - 02/18/2024 7:41 AM EDT Olga is scheduled on 02/18 for an ultrasound guided left breast core biopsy and left axilla biopsy.If agreeable, can you please sign the pended order. Thank you, Ultrasound documented in this encounter Plan of Treatment Upcoming Encounters Date Type Department Care Team (Late st Contact Info) Description 02/17/2025 12:00 PM EDT Appointment Vascular Lab [address] [address] 02/17/2025 1:00 PM EDT Appointment Vascular Lab [place] [address] [place] [address] 02/17/2025 1:30 PM EDT Office Visit Vascular Surg [facility] [address] [place] [address] Hernan Conde MD [address] [place] [address] Health Maintenance Due Date Last Done Comments Zoster Vaccines (2 of 3) 03/07/2009 01/10/2009 *BISPHONATE OR OTHER ACCEPTABLE MEDICATION NEEDED FOR OSTEOPOROSIS (REFER TO SMARTSET #1146) 02/15/2024 COVID-19 Vaccine ( season) 2024 01/18/2021, 12/21/2020 Influenza Vaccine (FLU shot) (#1) 2024 05/24/2023, 05/21/2023, 05/22/2022, Additional history exists DTap/Tdap Vaccines (2 - Td or Tdap) 04/01/2024 04/01/2014, 04/14/2003, 07/15/1988 GFR 08/05/2024 02/03/2024, 01/13, 04/17/2022, Additional history exists CKD HGB USE SMARTSET 68432 02/02/202502/02, 01/31/2023, 01/30/2022, Additional history exists CKD PHOS USE SMARTSET 96083 02/02/202501/13, 04/17/2022, 03/03/2020, Additional history exists Albumin/Creatinine Ratio 02/03/2025 02/04/2024, 01/13 DXA Scan 02/04/2025 02/04/2023, 01/13, 03/07/2020, Additional history exists Adult Wellness Visit 02/09/2025 02/10/2024, 02/07/2023, 02/06/2022, Additional history exists Depression Monitoring 02/09/2025 02/10/2024 Mammogram 02/16/2026 02/17/2024, 080 11/2023, 02/13/2024, Additional history exists Lung Cancer Screening Completed 05/11/2013 Pneumococcal Vaccine: 65+ Years Completed 04/19/2015, 11/29/2009 VITAMIN D LEVEL ONCE IN A LIFETIME-USE SMARTSET# 84490 Completed 02/03/2024, 04/17/2022, 01/30/2022, Additional history exists [...] this encounter Medical Devices Implanted Type Area Applications Developer Device Identifier Shelf Expiration Date Model / Serial / Lot Lens Intraoc 22.5 - [id number] - [id number] Implanted:Qty: 1 on 03/09/2019 by Trav Ashraf MD at OR [facility] Right: Eye [employer] 10/13/2023 [id number] / [id number] Lens Intraoc 23.0 - [id number] - [id number] Implanted:Qty: 1 on 03/17/2019 by Trav Ashraf MD at [facility] Left: Eye [employer]OMB 2023 [id number] / [id number] / [id number] documented as of this encounter Results * US GUIDED BREAST BIOPSY LEFT (02/19/2024 3:36 PM EDT) Anatomical Region Laterality Modality Breast Left Ultrasound 02/19/2024 6:15 PM EDT Addenda Addendum by Bernarda Davis MD on 02/21/2024 6:49 PM EDT ADDENDUM: FINAL PATHOLOGY: A. Breast, Left, 8:00 3cm fn, core biopsy: Benign mostly fatty breast tissue with focal stromal fibrosis associated with dilated duct structures No evidence of atypia or malignancy B. Lymph Node, left axilla, core biopsy: Cores of benign lymphoid and adipose tissue No evidence of carcinoma Imaging and pathology are concordant. Resume annual screening mammogram due February 2025. Benign results and 1 year follow-up screening mammogram recommendation were discussed with and understood by the patient by Dr. Davis on February 21, 2024 at 6:25 p.m.. Impressions 02/19/2024 6:13 PM EDT IMPRESSION Ultrasound-guided core biopsy of left breast eight o'clock mass and left axillary lymph node performed. Narrative 02/19/2024 6:13 PM EDT EXAM US GUIDED BREAST BIOPSY LEFT; MAMMOGRAM POST BIOPSY CLIP PLACEMENT- 02/19/2024 3:36 pm; 02/19/2024 3:33 pm HISTORY abnormal mammo; Post biopsy clip placement COMPARISON Prior examination February 17, [address] Davis was present for and performed the entire procedure. FINDINGS After a discussion of risks, benefits and alternative to the procedure as well as a detailed explanation of the procedure, the patient was given the opportunity to ask questions. After her questions were answered to her satisfaction, informed consent with agreement of procedure, site and position was obtained. A timeout procedure was performed by Dr. Bernarda Davis in the presence of Jelly Reaves and it was confirmed that procedure matches verbalized consent. All necessary equipment was available prior to procedure. The site of the intended procedure was marked on the skin. Patient denies allergies to lidocaine or tape. She has no known blood dyscrasias and is not taking anticoagulant medication. Site 1: Left breast eight o'clock; heart shaped marker Preliminary ultrasound demonstrates subtle hypoechoic mass left breast eight o'clock 3 cm from the nipple measuring 4 by 2 x 7 mm.. Using aseptic technique, local anesthesia with 1% buffered lidocaine, and ultrasound guidance, core biopsy was performed . Passes through the target were documented. A marker was placed in the nodule. Site 2 left axilla; [place] marker Preliminary ultrasound demonstrates lymph node within the left axilla with thickened cortex measuring up to 5 mm.. Using aseptic technique, local anesthesia with 1% buffered lidocaine, and ultrasound guidance, core biopsy was performed . Passes through the target were documented. A marker was placed in the nodule. Post procedural mammogram verified clip placement within the left breast. Left axillary marker was not visualized due to superior location. The patient tolerated the procedure well and there were no complications. Specimens were sent to surgical pathology and results are pending. Written discharge instructions were given to the patient and also reviewed verbally with her. The patient expressed understanding of the instructions and was discharged from the department in stable condition. Procedure Note Bernarda Davis MD - 02/19/2024 EXAM US GUIDED BREAST BIOPSY LEFT; MAMMOGRAM POST BIOPSY CLIP PLACEMENT-02/19/2024 3:36 pm; 02/19/2024 3:33 pm HISTORY abnormal mammo; Post biopsy clip placement COMPARISON Prior examination February 17, [address] Davis was present for and performed the entire procedure. FINDINGS After a discussion of risks, benefits and alternative to the procedure aswell as a detailed explanation of the procedure, the patient was given theopportunity to ask questions. After her questions were answered to hersatisfaction, informed consent with agreement of procedure, site andposition was obtained. A timeout procedure was performed by Dr. Mathis in the presence of Jelly Reaves and it was confirmed thatprocedure matches verbalized consent. All necessary equipment wasavailable prior to procedure. The site of the intended procedure wasmarked on the skin. Patient denies allergies to lidocaine or tape. Shehas no known blood dyscrasias and is not taking anticoagulantmedication. Site 1: Left breast eight o'clock; heart shaped marker Preliminary ultrasound demonstrates subtle hypoechoic mass left breasteight o'clock 3 cm from the nipple measuring 4 by 2 x 7 mm.. Usingaseptic technique, local anesthesia with 1% buffered lidocaine, andultrasound guidance, core biopsy was performed . Passes through thetarget were documented. A marker was placed in the nodule. Site 2 left axilla; [place] marker Preliminary ultrasound demonstrates lymph node within the left axilla withthickened cortex measuring up to 5 mm.. Using aseptic technique, localanesthesia with 1% buffered lidocaine, and ultrasound guidance, corebiopsy was performed . Passes through the target were documented. Amarker was placed in the nodule. Post procedural mammogram verified clip placement within the left breast.Left axillary marker was not visualized due to superior location. Thepatient tolerated the procedure well and there were no complications.Specimens were sent to surgical pathology and results are pending.Written discharge instructions were given to the patient and also reviewedverbally with her. The patient expressed understanding of theinstructions and was discharged from the department in stable condition. IMPRESSION IMPRESSION Ultrasound-guided core biopsy of left breast eight o'clock mass and leftaxillary lymph node performed. Latrice Narvaez PA-C RAD ULTRASOUND documented in this encounter Visit Diagnoses Diagnosis Abnormal mammogram- Primary Abnormal mammogram, unspecified Abnormal mammogram Abnormal mammogram, unspecified documented in this encounter Advance Directives Documents on File Type Date Recorded Patient Sql Ssis Developer Expl anation Advance Directives and Living Will 02/25/2024 signed on 02/24/2024 - LIVING WILL & HEALTH CARE POA Care Teams Behavioral Therapy Coordinator Relationship Specialty Start Date End Date Latrice Narvaez PA-C [address], [place] [id number] PCP - General Physician Assisted Living Administrator 11/16/20 documented as of this encounter
--- OUTSIDE RECORDS SUMMARY | 2024-10-13 05:18 | External Medical Summary | Summary of Care ---
Author Name Unknown Organization [facility] Address [address] [place] [address] Phone [phone] Care Team Providers Care Psychometrist Name Role Phone Latrice Narvaez PA-C Primary Care Provider [phone] Reason for Visit * Reason Onset Date Comments Order Request 02/17/2024 Encounter Details Date Type Department Care Team (Late st Contact Info) Description 02/17/2024 Telephone [facility] [address] [place] [address] Latrice Narvaez PA-C [address] [place] [address] Order Request Allergies Active Allergy Reactions Criticality Noted Date Comments Sulfa Antibiotics 11/26/2017 Hives, swelling Simvastatin Rash 12/18/2007 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 documented as of this encounter (statuses as of 05/18/2024) Medications Medication Sig Dispensed Refills Start Date End Date Status CORAL WEEKASW-OZLEIXHOB-T IT D 133-66.7-133 MG-MG-UNIT PO CAPS Take by mouth daily . Active ASPIRIN 81 MG PO CHEW 1 pill daily Active clobetasol (TEMOVATE) 0.05 % gelIndications:Lich en planus may apply twice daily for worst of the Lichen Planus 120 g 5 06/15/2016 Active LORazepam (ATIVAN) 1 MG TabletIndications:L egal circumstances,Stres s at home One half to one whole tab by mouth up to three times a day 40 Tab 01/21/2017 Active Additional Information Patient taking differently: PRN, One half to one whole tab by mouth up to three times a day, Reported on 10/25/2017 meclizine (ANTIVERT) 25 MG TabletIndications:V ertigo Take 1 Tab by mouth 3 times a day as needed for Dizziness. 30 Tab 1 04/19/2017 Active mirtazapine (REMERON) 15 MG TabletIndications:P ersistent insomnia TAKE ONE HALF TAB BY MOUTH AT BEDTIME, MAY INCREASE TO WHOLE TAB - DO NOT MIX WITH LORAZEPAM 30 Tab 1 05/15/2017 Active Additional Information Patient taking differently: PRN, Reported on 02/06/2023 Cyanocobalamin (B-12) 100 MCG TABS Take by mouth. A ctive vitamin e 100 UNIT Capsule Take 1 Capsule by mouth in the morning. Active Triamcinolone Acetonide 0.1 % External Cream (Aristocort) Apply topically to affected area 2 times a day. Apply to upper back, arms, thighs, legs 160 g 5 09/27/2020 Active Zinc 50 MG Oral Tablet Take 1 Tablet by mouth in the morning. Active Benzonatate 100 MG Oral Capsule (Tessalon Perles)Indications: History of 2019 novel coronavirus disease (COVID-19) Take 2 Capsules by mouth 3 times a day as needed for Cough. 60 Capsule 1 06/28/2021 Active Ergocalciferol 1.25 MG (40514 UT) Oral Capsule (Vitamin D2(Drisdol)) Take by mouth 1 Capsule once a week . 12 Capsule 04/26/2022 Active metroNIDAZOLE 1 % External Gel (Metrogel)Indicatio ns:Rosacea Apply topically to affected area 2 times a day. To affected area. 60 g 11 02/08/2023 Active Ammonium Lactate 12 % External Cream (Lac-Hydrin) Apply to all skin neck down 1-2 times daily 385 g 11 02/08/2023 Active Vitamin D3 50 MCG (2000 UT) Oral CapsuleIndications: Vitamin D deficiency Take 1 Capsule by mouth in the morning. 90 Capsule 1 02/13/2024 Active documented as of this encounter (statuses as of 05/18/2024) Active Problems Problem Noted Date Diagnosed Date [...] as of this encounter (statuses as of 05/18/2024) Resolved Problems Problem Noted Date Diagnosed Date [...] as of this encounter (statuses as of 05/18/2024) Immunizations Name Administration Dates Next Due COVID-19 [...] encounter Miscellaneous Notes * Telephone Encounter - Fabiola Keane OSA - 02/17/2024 3:50 PM EDT Reason for patient's call: pt wants to speak to a nurse Caller was transferred to [place] at the nurse line. documented in this encounter Plan of Treatment Upcoming Encounters Date Type Department Care Team (Late st Contact Info) Description 02/17/2025 12:00 PM EDT Appointment Vascular Lab [address] [address] 02/17/2025 1:00 PM EDT Appointment Vascular Lab [place] [address] [place] [address] 02/17/2025 1:30 PM EDT Office Visit Vascular Surg [facility], [place] [address] [place] [address] Hernan Conde MD [address] [place] [address] Health Maintenance Due Date Last Done Comments [...] Additional history exists CKD HGB USE SMARTSET 11721 02/02/202502/02, 01/31/2023, 01/30/2022, Additional history exists CKD PHOS USE SMARTSET 94810 02/02/202501/13, 04/17/2022, 03/03/2020, Additional history exists Albumin/Creatinine Ratio 02/03/2025 02/04/2024, 01/13 DXA Scan 02/04/2025 02/04/2023, 01/13, 03/07/2020, Additional history exists Adult Wellness Visit 02/09/2025 02/10/2024, 02/07/2023, 02/06/2022, Additional history exists Depression Monitoring 02/09/2025 02/10/2024 Mammogram 02/16/2026 02/17/2024, 0811/2023, 02/13/2024, Additional history exists Lung Cancer Screening Completed 05/11/2013 Pneumococcal Vaccine: 65+ Years Completed 04/19/2015, 11/29/2009 VITAMIN D LEVEL ONCE IN A LIFETIME-USE SMARTSET# 39570 Completed 02/03/2024, 04/17/2022, 01/30/2022, Additional history exists [...] this encounter Medical Devices Implanted Type Area Door Slinger Device Identifier Shelf Expiration Date Model / Serial / Lot Lens Intraoc 22.5 - [id number] - [id number] Implanted:Qty: 1 on 03/09/2019 by Trav Ashraf MD at OR [facility] Right: Eye [employer] 10/13/2023 [id number] / [id number] / [id number] Lens Intraoc 23.0 - [id number] - [id number] Implanted:Qty: 1 on 03/17/2019 by Trav Ashraf MD at OR [facility] Left: Eye [employer]OM[employer] 2023 [id number] / [id number] / [id number] documented as of this encounter Advance Directives Documents on File Type Date Recorded Patient Engineer Geophysical Laboratory Expl anation Advance Directives and Living Will 02/25/2024 signed on 02/24/2024 - LIVING WILL & HEALTH CARE POA Care Teams Psychometrist Relationship Specialty Start Date End Date Latrice Narvaez PA-C [address] [place] [address] PCP - General Physician Judo Instructor 11/16/20 documented as of this encounter
--- OUTSIDE RECORDS SUMMARY | 2024-10-13 05:18 | External Medical Summary | Summary of Care ---
Author Name Unknown Organization [facility] Address [address] [place] [facility] [place] [address] Phone [phone] Care Team Providers Care Speech Language Pathology Assistant Name Role Phone Latrice Narvaez PA-C Primary Care Provider [phone] Reason for Visit * Reason Comments eRx-Medication Refill Encounter Details Date Type Department Care Team (Late st Contact Info) Description 05/03/2024 Refill [facility] [address] [place] [address] Latrice Narvaez PA-C [address] [place] [address] Vitamin D deficiency Allergies Active Allergy Reactions Criticality Noted Date Comments Sulfa Antibiotics 11/26/2017 Hives, swelling Simvastatin Rash 12/18/2007 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 Active ASPIRIN 81 MG PO CHEW 1 pill daily Active clobetasol (TEMOVATE) 0.05 % gelIndications:L ichen planus may apply twice daily for worst of the Lichen Planus 120 g 5 06/15/2016 Active LORazepam (ATIVAN) 1 MG TabletIndication s:Legal [...] 1 04/19/2017 Active mirtazapine (REMERON) 15 MG TabletIndication s:Persistent [...] Capsule 1 06/28/2021 Active Ergocalciferol 1.25 MG (34251 UT) Oral Capsule (Vitamin D2(Drisdol)) Take by mouth 1 Capsule once a week . 12 Capsule 04/26/2022 Active metroNIDAZOLE 1 % External Gel (Metrogel)Indica [...] the morning. 90 Capsule 1 02/13/2024 Active Fenofibrate Micronized 200 MG Oral CapsuleIndicatio ns:Dyslipidemia, goal LDL below 100 Take 1 Capsule by mouth in the morning. 90 Capsule 3 03/23/2024 Active Losartan Potassium 50 MG Oral Tablet (Cozaar)Indicati ons:Hypertensive kidney disease, stage III (HCC),HTN, goal below 140/90 TAKE 1 TABLET BY MOUTH EVERY DAY IN THE MORNING 100 Tablet 2 04/14/2024 Active Chlorthalidone 25 MG Oral Tablet (Hygroton)Indica tions:Hypertensi ve kidney disease, stage III (HCC),HTN, goal below 140/90 TAKE 1 TABLET BY MOUTH EVERY DAY IN THE MORNING 100 Tablet 2 04/14/2024 Active Vitamin D3 1.25 MG (42848 UT) Oral CapsuleIndicatio ns:Vitamin D deficiency TAKE 1 CAP ONCE A DAY SATURDAY & SATURDAY ONLY. WHEN COMPLETED, START DAILY DOSE AND REPEAT LABS 24 Capsule 05/05/2024 Active Vitamin D3 1.25 MG (68440 UT) Oral CapsuleIndicatio ns:Vitamin D deficiency Take 1 Capsule by mouth once a day Saturday and only. When completed, start daily dose and repeat labs 24 Capsule 02/17/2024 4 Discontinued documented as of this encounter (statuses as of 05/05/2024) Active Problems Problem Noted Date Diagnosed Date [...] as of this encounter (statuses as of 05/05/2024) Resolved Problems Problem Noted Date Diagnosed Date [...] as of this encounter (statuses as of 05/05/2024) Immunizations Name Administration Dates Next Due COVID-19 [...] encounter Miscellaneous Notes * Telephone Encounter - Latrice Narvaez PA-C - 05/05/2024 4:34 PM EDTSigned Prescriptions: Disp Refills Vitamin D3 1.25 MG (73503 UT) Oral Capsule 24 Cap*0 Sig: TAKE 1 CAP ONCE A DAY SATURDAY & SATURDAY ONLY. WHEN COMPLETED, START DAILY DOSE AND REPEAT LABS Authorizing Provider: LATRICE NARVAEZ * Telephone Encounter - Prince Guaman RP - 05/05/2024 12:07 PM EDTPending Prescriptions: Disp Refills Vitamin D3 1.25 MG (38968 UT) Oral Capsule*24 Cap*0 Sig: TAKE 1 CAP ONCE A DAY SATURDAY & SATURDAY ONLY. WHEN COMPLETED, START DAILY DOSE AND REPEAT LABS * Telephone Encounter - Prince Guaman RP - 05/05/2024 12:07 PM EDT Refill pharmacists currently not authorized to approve refills for the pended medication(s) per refill protocol. Please approve if appropriate. Pending Prescriptions: Disp Refills Vitamin D3 1.25 MG (64004 UT) Oral Capsule*24 Cap*0 Sig: TAKE 1 CAP ONCE A DAY SATURDAY & SATURDAY ONLY. WHEN COMPLETED, START DAILY DOSE AND REPEAT LABS Last Visit: 02/04/2024 (in office), Visit date not found (telemedicine) Next Visit: Visit date not found If no future appointments scheduled, and last appointment is greater than a year ago, please schedule patient for a follow-up appointment Last date the medication was ordered: 02-17-24 Pharmacy: [id number] [address] [facility] Is this request for a controlled substance?No Urine Drug Screen:No results found for this or any previous visit. Patient Phone Numbers Labs: Lab Results Component Value Date/Time CREAT 1.0 02/03/2024 09:33 AM CREAT 1.0 03/03/2020 10:32 AM POTASSIUM 4.2 02/03/2024 09:33 AM POTASSIUM 4.7 03/03/2020 10:32 AM POTASSIUM 4.5 09/14/1996 09:00 AM TSH 1.42 03/03/2020 10:32 AM TSH 1.45 09/14/1996 09:00 AM LDL 78 02/03/2024 09:33 AM LDL 93 03/03/2020 10:32 AM LDL 158. (H) 09/14/1996 09:00 AM ALT 11 02/03/2024 09:33 AM ALT 12 03/03/2020 10:32 AM HGBA1C 5.8 (H) 02/03/2024 09:33 AM HGBA1C 5.4 11/20/2023 11:49 AM Mary BeasleyPh. Clinical Pharmacist [facility] [address] [place] [address], [address]: [phone] 05/05/2024,12:07 PM documented in this encounter Plan of Treatment Health Maintenance Due Date Last Done Comments [...] Additional history exists CKD HGB USE SMARTSET 68465 02/02/202502/02, 01/31/2023, 01/30/2022, Additional history exists CKD PHOS USE SMARTSET 92196 02/02/202501/13, 04/17/2022, 03/03/2020, Additional history exists Albumin/Creatinine Ratio 02/03/2025 02/04/2024, 01/13 DXA Scan 02/04/2025 02/04/2023, 01/13, 03/07/2020, Additional history exists Adult Wellness Visit 02/09/2025 02/10/2024, 02/07/2023, 02/06/2022, Additional history exists Depression Monitoring 02/09/2025 02/10/2024 Mammogram 02/16/2026 02/17/2024, 0811/2023, 02/13/2024, Additional history exists Lung Cancer Screening Completed 05/11/2013 Pneumococcal Vaccine: 65+ Years Completed 04/19/2015, 11/29/2009 VITAMIN D LEVEL ONCE IN A LIFETIME-USE SMARTSET# 04873 Completed 02/03/2024, 04/17/2022, 01/30/2022, Additional history exists [...] this encounter Medical Devices Implanted Type Area Airfield Operations Specialist Device Identifier Shelf Expiration Date Model / Serial / Lot Lens Intraoc 22.5 - [id number] - [id number] Implanted:Qty: 1 on 03/09/2019 by Trav Ashraf MD at OR [facility] Right: Eye [employer] 10/13/2023 [id number] / [id number] / [id number] Lens Intraoc 23.0 - [id number] - [id number] Implanted:Qty: 1 on 03/17/2019 by Trav Ashraf MD at OR [facility] Left: Eye [employer] 2023 [id number] / [id number] / [id number] documented as of this encounter Visit Diagnoses Diagnosis Vitamin D deficiency Unspecified vitamin D deficiency documented in this encounter Advance Directives Documents on File Type Date Recorded Patient Transport Analyst Expl anation Advance Directives and Living Will 02/25/2024 signed on 02/24/2024 - LIVING WILL & HEALTH CARE POA Care Teams Speech Language Pathology Assistant Relationship Specialty Start Date End Date Latrice Narvaez PA-C [address] [facility] [place] [place] [address] PCP - General Physician Latin Dance Instructor 11/16/20 documented as of this encounter
--- OUTSIDE RECORDS SUMMARY | 2024-10-13 05:18 | External Medical Summary | Summary of Care ---
Author Name Unknown Organization [facility] Address [address] [place] [address] Phone [phone] Care Team Providers Care Statistics Teacher Name Role Phone Latrice Narvaez PA-C Primary Care Provider [phone] Reason for Visit * Reason Onset Date Comments Order Request 01/27/2024 Encounter Details Date Type Department Care Team (Late st Contact Info) Description 01/27/2024 Telephone [facility] [address] [place] [address] Latrice Narvaez PA-C [address] [place] [address] Order Request Allergies Active Allergy Reactions Criticality Noted Date Comments Sulfa Antibiotics 11/26/2017 Hives, swelling Simvastatin Rash 12/18/2007 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 12 Capsule 04/26/2022 Active metroNIDAZOLE 1 % External Gel (Metrogel)Indicatio ns:Rosacea Apply topically to affected area 2 times a day. To affected area. 60 g 11 02/08/2023 Active Ammonium Lactate 12 % External Cream (Lac-Hydrin) Apply to all skin neck down 1-2 times daily 385 g 02/08/2023 Active documented as of this encounter (statuses [...] Seasonal Influenza, Quadriva lent, No Preserve, IM 05/21/2023,03/22/2017,04/12/2016,10/07/201404/12/2017 TDAP (age 10 and older)(Boostrix) 04/01/2014 Varicella [...] Telephone Encounter - Kimberly Silva LPN - 01/27/2024 5:07 PM EDT Called and spoke with patient and she is aware orders were placed. * Telephone Encounter - Latrice Narvaez PA-C - 01/27/2024 4:48 PM EDT Orders in Elevated glucose (Primary) - HEMOGLOBIN A1C; Future; Expected date: 01/27/2024 Latrice Narvaez PA-C 01/27/2024 4:48 PM * Telephone Encounter - Kimberly Silva LPN - 01/27/2024 12:46 PM EDT Please advise, can order be placed for patient? * Telephone Encounter - Juanita Kahn OSA - 01/27/2024 8:26 AM EDT An order was requested for this patient. Name of Requesting Provider: Latrice Narvaez Order Requested: A1C Diagnosis/Reason for Request: Pre Diabetic What location AND department does the patient wish to have their order completed at? Fax Number, if applicable: documented in this encounter Plan of Treatment Health Maintenance Due Date Last Done Comments Zoster Vaccines (2 of 3) 03/07/2009 01/10/2009 *BISPHONATE OR OTHER ACCEPTABLE MEDICATION NEEDED FOR OSTEOPOROSIS (REFER TO SMARTSET #1146) 02/15/2024 COVID-19 Vaccine ( - season) 2024 01/18/2021, 12/21/2020 Influenza Vaccine (FLU shot) (#1) 2024 05/24/2023, 05/21/2023, 05/22/2022, Additional history exists DTap/Tdap Vaccines (2 - Td or Tdap) 04/01/2024 04/01/2014, 04/14/2003, 07/15/1988 GFR 08/05/2024 02/03/2024, 01/13, 04/17/2022, Additional history exists CKD HGB USE SMARTSET 14290 02/02/202502/02, 01/31/2023, 01/30/2022, Additional history exists CKD PHOS USE SMARTSET 82779 02/02/202501/13, 04/17/2022, 03/03/2020, Additional history exists Albumin/Creatinine Ratio 02/03/2025 02/04/2024, 01/13 DXA Scan 02/04/2025 02/04/2023, 01/13, 03/07/2020, Additional history exists Adult Wellness Visit 02/09/2025 02/10/2024, 02/07/2023, 02/06/2022, Additional history exists Depression Monitoring 02/09/2025 02/10/2024 Mammogram 02/16/2026 02/17/2024, 0811/2023, 02/13/2024, Additional history exists Lung Cancer Screening Completed 05/11/2013 Pneumococcal Vaccine: 65+ Years Completed 04/19/2015, 11/29/2009 VITAMIN D LEVEL ONCE IN A LIFETIME-USE SMARTSET# 14186 Completed 02/03/2024, 04/17/2022, 01/30/2022, Additional history exists [...] this encounter Medical Devices Implanted Type Area Client Service Consultant Device Identifier Shelf Expiration Date Model / Serial / Lot Lens Intraoc 22.5 - [id number] - [id number] Implanted:Qty: 1 on 03/09/2019 by Trav Ashraf MD at OR [facility] Right: Eye [employer] 10/13/2023 [id number] / [id number] / [id number] Lens Intraoc 23.0 - [id number] - [id number] Implanted:Qty: 1 on 03/17/2019 by Trav Ashraf MD at OR [facility] Left: Eye [employer] 2023 [id number] / [id number] / [id number] documented as of this encounter Results * (ABNORMAL) HEMOGLOBIN A1C (02/03/2024 9:33 AM EDT) [facility] Hemoglobin A1C 5.8(H) 4.0 - 5.6 % 02/03/2024 7:29 PM EDT [facility] Comment:The use of HbA1c to monitor glycemic status is based on normal hemoglobin and HbA composition. This test should not be used in patients with abnormal hemoglobin that affects the half life of the red blood cell or the in vivo glycation rates. 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
--- OUTSIDE RECORDS SUMMARY | 2024-10-13 05:18 | External Medical Summary | Summary of Care ---
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 WHEN COMPLETED, START DAILY DOSE AND REPEAT LABS 24 Capsule 4 Active documented as of this encounter (statuses as of 08/06/2024) Active Problems Problem Noted Date Diagnosed Date [...] as of this encounter (statuses as of 08/06/2024) Resolved Problems Problem Noted Date Diagnosed Date [...] as of this encounter (statuses as of 08/06/2024) Immunizations Name Administration Dates Next Due COVID-19 [...] 02/17/2025 12:00 PM EDT Appointment [facility] [address] [place] [address] 02/17/2025 1:00 PM EDT Appointment [facility] [address] [address] 02/17/2025 1:30 PM EDT Office Visit [facility] [address] [place] [address] Hernan Conde MD [address] [place] [address] Health Maintenance Due Date Last Done Comments Zoster Vaccines (2 of 3) 03/07/2009 01/10/2009 *BISPHONATE OR OTHER ACCEPTABLE MEDICATION NEEDED FOR OSTEOPOROSIS (REFER TO SMARTSET #1146) 02/15/2024 COVID-19 Vaccine (3 - season) 2024 01/18/2021, 12/21/2020 DTap/Tdap Vaccines (2 - Td or Tdap) 04/01/2024 04/01/2014, 04/14/2003, 07/15/1988 GFR 08/05/2024 02/03/2024, 01/13, 04/17/2022, Additional history exists CKD HGB USE SMARTSET 17456 02/02/202502/02, 01/31/2023, 01/30/2022, Additional history exists CKD PHOS USE SMARTSET 77910 02/02/202501/13, 04/17/2022, 03/03/2020, Additional history exists Albumin/Creatinine Ratio 02/03/2025 02/04/2024, 01/13 DXA Scan 02/04/2025 02/04/2023, 01/13, 03/07/2020, Additional history exists Adult Wellness Visit 02/09/2025 02/10/2024, 02/07/2023, 02/06/2022, Additional history exists Depression Monitoring 02/09/2025 02/10/2024 Mammogram 02/16/2026 02/17/2024, 0811/2023, 02/13/2024, Additional history exists Lung Cancer Screening Completed 05/11/2013 Pneumococcal Vaccine: 50+ Years Completed 04/19/2015, 11/29/2009 VITAMIN D LEVEL ONCE IN A LIFETIME-USE SMARTSET# 77898 Completed 02/03/2024, 04/17/2022, 01/30/2022, Additional history exists [...] this encounter Medical Devices Implanted Type Area Glazier Artist Device Identifier Shelf Expiration Date Model / Serial / Lot Lens Intraoc 22.5 - [id number] - [id number] Implanted:Qty: 1 on 03/09/2019 by Trav Ashraf MD at OR [facility] Right: Eye [employer] 10/13/2023 [id number] / [id number] / [id number] Lens Intraoc 23.0 - [id number] - [id number] Implanted:Qty: 1 on 03/17/2019 by Trav Ashraf MD at OR [facility] Left: Eye [employer] 2023 [id number] / [id number] / [id number] documented as of this encounter Advance Directives Documents on File Type Date Recorded 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
--- OUTSIDE RECORDS SUMMARY | 2024-10-13 05:18 | External Medical Summary | Summary of Care ---
Author Name Unknown Organization [facility] Address [address] [place] [address] Phone [phone] Care Team Providers Care Labels Molder Name Role Phone Latrice Narvaez PA-C Primary Care Provider [phone] Reason for Visit * Reason Onset Date Comments Appointment 02/12/2024 Encounter Details Date Type Department Care Team (Late st Contact Info) Description 02/12/2024 Telephone Vascular Surg [facility] [address] [place] [address] Hernan Conde MD [address] [place] [address] Appointment Allergies Active Allergy Reactions Criticality Noted Date Comments Sulfa Antibiotics 11/26/2017 Hives, swelling Simvastatin Rash 12/18/2007 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 documented as of this encounter (statuses as of 05/03/2024) Medications Medication Sig Dispensed Refills Start Date [...] Capsule 1 1 Active Ergocalciferol 1.25 MG (80304 UT) Oral Capsule (Vitamin D2(Drisdol)) Take by [...] as of this encounter (statuses as of 05/03/2024) Active Problems Problem Noted Date Diagnosed Date [...] as of this encounter (statuses as of 05/03/2024) Resolved Problems Problem Noted Date Diagnosed Date [...] as of this encounter (statuses as of 05/03/2024) Immunizations Name Administration Dates Next Due COVID-19 [...] Additional history exists CKD HGB USE SMARTSET 80077 02/02/202502/02, 01/31/2023, 01/30/2022, Additional history exists CKD PHOS USE SMARTSET 04670 02/02/202501/13, 04/17/2022, 03/03/2020, Additional history exists Albumin/Creatinine Ratio 02/03/2025 02/04/2024, 01/13 DXA Scan 02/04/2025 02/04/2023, 01/13, 03/07/2020, Additional history exists Adult Wellness Visit 02/09/2025 02/10/2024, 02/07/2023, 02/06/2022, Additional history exists Depression Monitoring 02/09/2025 02/10/2024 Mammogram 02/16/2026 02/17/2024, 08/0 11/2023, 02/13/2024, Additional history exists Lung Cancer Screening Completed 05/11/2013 Pneumococcal Vaccine: 65+ Years Completed 04/19/2015, 11/29/2009 VITAMIN D LEVEL ONCE IN A LIFETIME-USE SMARTSET# 43464 Completed 02/03/2024, 04/17/2022, 01/30/2022, Additional history exists [...] this encounter Medical Devices Implanted Type Area Ip Technology Transactions Attorney Device Identifier Shelf Expiration Date Model / Serial / Lot Lens Intraoc 22.5 - [id number] - [id number] Implanted:Qty: 1 on 03/09/2019 by Trav Ashraf MD at OR [facility] Right: Eye [employer] 10/13/2023 [id number] / [id number] / [id number] Lens Intraoc 23.0 - [id number] - [id number] Implanted:Qty: 1 on 03/17/2019 by Trav Ashraf MD at OR [facility] Left: Eye [employer] 2023 [id number] / [id number] / [id number] documented as of this encounter Visit Diagnoses Diagnosis Asymptomatic bilateral carotid artery stenosis- Primary Occlusion and stenosis of multiple and bilateral precerebral arteries without mention of cerebral infarction Subclavian arterial stenosis (HCC) Stricture of artery documented in this encounter Advance Directives Documents on File Type Date Recorded 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
--- OUTSIDE RECORDS SUMMARY | 2024-10-13 05:19 | External Medical Summary | Summary of Care ---
Author Name Unknown Organization [facility] Address [address] [place] [address] Phone [phone] Care Team Providers Care Shipwright Apprentice Name Role Phone Latrice Narvaez PA-C Primary Care Provider [phone] Reason for Visit * Reason Onset Date Comments Appointment 02/12/2024 Encounter Details Date Type Department Care Team (Late st Contact Info) Description 02/12/2024 Telephone Vascular Surg [facility] [address] [place] [address] Hernan Conde MD [address] [place] [address] Appointment Allergies Active Allergy Reactions [...] Capsule 1 1 Active Ergocalciferol 1.25 MG (88073 UT) Oral Capsule (Vitamin D2(Drisdol)) Take by [...] encounter Miscellaneous Notes * Telephone Encounter - Deirdre Bray OSA [...] Additional history exists CKD HGB USE SMARTSET 35400 02/02/202502/02, 01/31/2023, 01/30/2022, Additional history exists CKD PHOS USE SMARTSET 35177 02/02/202501/13, 04/17/2022, 03/03/2020, Additional history exists Albumin/Creatinine Ratio 02/03/2025 02/04/2024, 01/13 DXA Scan 02/04/2025 02/04/2023, 01/13, 03/07/2020, Additional history exists Adult Wellness Visit 02/09/2025 02/10/2024, 02/07/2023, 02/06/2022, Additional history exists Depression Monitoring 02/09/2025 02/10/2024 Mammogram 02/16/2026 02/17/2024, 08/0 11/2023, 02/13/2024, Additional history exists Lung Cancer Screening Completed 05/11/2013 Pneumococcal Vaccine: 65+ Years Completed 04/19/2015, 11/29/2009 VITAMIN D LEVEL ONCE IN A LIFETIME-USE SMARTSET# 74280 Completed 02/03/2024, 04/17/2022, 01/30/2022, Additional history exists [...] this encounter Medical Devices Implanted Type Area Nnp Device Identifier Shelf Expiration Date Model / Serial / Lot Lens Intraoc 22.5 - [id number] - [id number] Implanted:Qty: 1 on 03/09/2019 by Trav Ashraf MD at OR [facility] Right: Eye [employer] 10/13/2023 [id number] / [id number] / [id number] Lens Intraoc 23.0 - [id number] - [id number] Implanted:Qty: 1 on 03/17/2019 by Trav Ashraf MD at OR 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
[2024-10-13 06:35] LABS: Hematocrit (blood only) 42.6 % (37.0-47.0); Hemoglobin 14.3 g/dl (12.0-16.0); Mean Corpuscular Hemoglobin 28.2 pg (25.0-34.0); Mean Corpuscular Hgb Conc 33.6 g/dL (32.0-36.0); Platelet Count 325 K/uL (130-400); RDW Coefficient of Variation 13.2 % (11.5-14.5); RDW Standard Deviation 40.4 fL (36.4-46.3); Red Blood Count 5.07 M/uL (4.20-5.40); White Blood Count 13.82 K/ul (4.8-10.8)
[2024-10-13 06:59] LABS: Albumin Globulin Ratio 1.5 (0.9-2); Albumin Level 3.7 gm/dl (3.4-5.0); BUN Creatinine Ratio 33.3 (10-20); Bilirubin,Total 0.5 mg/dl (0.2-1.0); Creatinine Clr Calc Pharmacy 42.7 ml/min; Globulin 2.5 gm/dl (2.5-4.0); Magnesium 2.1 mg/dl (1.7-2.4); Potassium 3.8 mmol/L (3.5-5.1); Total Protein 6.2 gm/dl (6.0-8.3)
[2024-10-13 07:15] LABS: Basophils # (auto) 0.05 K/uL (0.00-0.20); Basophils % (auto) 0.4 %; Echinocytes 1+; Eosinophils # (auto) 0.21 K/uL (0.00-0.50); Eosinophils % (auto) 1.5 %; Immature Granulocytes # (auto) 0.14 K/uL (0.01-0.20); Lymphocytes # (auto) 5.45 K/uL (1.20-3.40); Lymphocytes % (auto) 39.4 %; Monocytes # (auto) 1.34 K/uL (0.11-0.59); Monocytes % (auto) 9.7 %; Neutrophils # (auto) 6.63 K/uL (1.40-6.50); Polychromasia 1+
--- NOTE | 2024-10-13 08:13 | Hospitalist Progress Note ---
Date of Service October 13, 2024 Assessment & Plan (1) Low back pain potentially associated with radiculopathy: (2) Ambulatory dysfunction: (3) Left leg DVT: (4) Acute UTI: (5) HTN (hypertension): (6) HLD (hyperlipidemia): (7) Carotid artery stenosis: Plan 79 year old female with PMH significant for HTN, HLD, carotid artery stenosis, CKD III, depression, vitamin D deficiency, and stress incontinence who is admitted for intractable back pain. Acute low back pain with radiculopathy Ambulatory dysfunction Lumbar spine MRI revealed mild disc degeneration at L4-5 with annular disc bulge causing severe subarticular recess stenosis with impingement and a critical spinal canal stenosis with effacement of the thecal sac Pain control with scheduled tylenol tid, PRN tramadol, PRN morphine Ortho spine surgery consult: likely IV steroids and possible epidural injection PT consult: reduced tolerance to activities, ROM, strength OT consult: impaired ADL participation, reduced functional mobility, decreased activity tolerance, fear of falling Patient expressed desire to go to [facility] for additional support as daughter's home has many steps that she cannot currently do LLE DVT Venous duplex revealed 1. Paired left popliteal veins with an acute thrombosed vein, likely the gastrocnemius. 2. A small complicated cyst in the right popliteal fossa measuring 2.1x 2.2 x .7cm. Apixaban 10mg bid x 7 days then 5mg bid thereafter - holding until ortho spine surgery consult Acute UTI UA +nitrites, leuk esterase, bacteria Patient asymptomatic but disclosed that she had a UTI 3 weeks ago and was pre scribed Augmentin but did not complete the course due to diarrhea IV ceftriaxone Urine culture prelim E coli HTN Continue losartan Holding chlorthalidone HLD Continue baby aspirin CKDIII BUN 37 and creat 1.1 this am Received 500mL NSS yesterday Holding chlorthalidone DVT Prophylaxis: on Eliquis Code Status: DNR/DNI PCP: Latrice Narvaez PA-C Disposition: Med/surg with telemetry Patient seen in collaboration with Dr Cadena. Please see addendum. I spent a total of 50 minutes coordinating, documenting and providing care for this patient excluding time spent in the performance of separately billed services or time spent by another provider/QHP. Admission and Anticipated Discharge Date Admission Date: October 12, 2024 Supervising Physician Co-Signing Physician Notes Patient seen and examined at bedside. Patient states that she was walking just fine, and then suddenly began having pain and weakness in her hips bilaterally. New sensation for her, normally very active. On exam, no weakness noted, tenderness to palpation on hips bilaterally. Imaging consistent with thecal sac effacement and severe stenosis 2/2 disc bulge. Appreciate ortho recs and assistance. Appreciate PT/OT recs. Will do stress dose IV steroids per ortho recommendations. I have seen and discussed the case with the collaborating advanced practitioner. I agree with the above H&P. I have reviewed and confirmed the patients medical history, the findings on physical examination, and the patients diagnosis and treatment plan with Karie SYKES and agree with the information documented. I spent a total of 20 minutes coordinating, documenting, and providing care for this patient excluding time spent in the performance of separately billed services. All of the aforementioned completed outside of collaborating with the assigned advanced practitioner for a full treatment plan. I have reviewed the advanced practitioner's documentation, and I agree with, and take responsibility for the plan of care Subjective Patient seen sitting up in bed Reports she is doing fine States her legs are numb Denies fevers, chills, chest pain, SOB, abdominal pain, N/V/D, back pain Review of Systems Review of Systems: All systems reviewed & are unremarkable except as noted in HPI & below Physical Exam Physical Exam: VITALS: Reviewed and VSS. GEN: Healthy appearing, well-developed, female, NAD. PSYCH: Good Judgment. AOx3. Normal memory, mood, and affect. HEENT: Head NC/AT. Sclera white and conjunctiva pink. Nares without rhinorrhea. Nasal and oral mucosa pink. NECK: Supple, with no masses. CV: RRR, no m/r/g. LUNGS: CTAB, no w/r/c. ABD: Soft, NT/ND, NBS, no masses or organomegaly. SKIN: Warm, well perfused. No skin rashes or abnormal lesions. MSK: Congenital deformity of LUE. EXT: No clubbing, cyanosis, or edema. NEURO: Normal muscle strength and tone. No focal deficits. Results & Data Results & Data Vital Signs (Past 12 Hours) Vital Signs Temp Pulse Pulse Resp BP BP Pulse Ox 10/13/24 07:37 36.5 C 74 16 137/73 94 10/13/24 07:13 60 10/13/24 02:01 36.5 C 70 16 96/60 L 95 10/13/24 00:00 83 10/12/24 22:45 36.7 C 80 18 112/65 95 10/12/24 21:32 78 10/12/24 21:04 36.6 C 85 16 134/71 92 O2 Del Method 10/13/24 07:37 Room Air 10/13/24 07:13 10/13/24 02:01 Room Air 10/13/24 00:00 10/12/24 22:45 Room Air 10/12/24 21:32 10/12/24 21:04 Room Air Laboratory Results Short CBC 10/12/24 10/12/24 10/13/24 Range/Units 15:04 16:11 05:51 WBC Cancelled 16.94 H 13.82 H Hgb Cancelled 15.7 14.3 Hct Cancelled 47.2 H 42.6 Plt Count Cancelled 332 325 BMP 10/12/24 10/13/24 15:04 05:51 Sodium 135 L 137 Potassium 3.9 3.8 Chloride 98 102 Carbon Dioxide 28 29 BUN 36 H 37 H Creatinine 1.22 H 1.11 Glucose 93 76 Calcium 9.9 9.0 Liver Function 10/12/24 10/13/24 Range/Units 15:04 05:51 Total Bilirubin 0.6 0.5 (0.2-1.0) mg/dl AST 24 16 (13-39) U/L ALT 16 12 (7-52) U/L Alkaline Phosphatase 31 L 27 L (34-104) U/L Albumin 4.4 3.7 (3.4-5.0) gm/dl Urine 10/12/24 Range/Units 17:06 Urine Color Yellow Urine Appearance Clear (Clear) Urine pH 6.0 (4.5-7.5) Ur Specific [place] 1.009 (1.000-1.030) Urine Protein Negative (Negative) Urine Glucose (UA) Negative (Negative) I have independently reviewed and interpreted patient's labs including CBC and CMP. Diagnostic Findings Lumbar Spine MRI 10/12/24 18:21 CR Exam(s): MRI L SPINE Without Contrast EXAM: MR Lumbar Spine Without Intravenous Contrast CLINICAL HISTORY: Reason for exam: low back pain. TECHNIQUE: Magnetic resonance images of the lumbar spine without intravenous contrast in multiple planes. COMPARISON: No relevant prior studies available. FINDINGS: Vertebrae: There are 5 lumbar type vertebral bodies with a mild generalized curved to the left and normal lumbar lordosis. There is a mild grade 1 anterolisthesis of L4 and L5 measuring 5.5 mm. Otherwise, is normal vertebral body height and alignment. The bone mesial is heterogeneous with reactive endplate changes. No acute fracture. Spinal cord: The conus demonstrates a stretch morphology, terminating at T12-L1. Soft tissues: Advanced atrophy of the iliopsoas, paraspinous intraspinous musculature. The aorta and IVC flow voids are intact. The visualized kidneys are unremarkable. DISCS/SPINAL CANAL/NEURAL FORAMINA: L1-L2: There is mild disc degeneration with annular disc bulge flattening the ventral thecal sac with disc extending to the neural foramina without evidence of impingement or significant stenosis. L2-L3: Moderate disc degeneration with annular disc bulge causing a mild left subarticular recess stenosis with disc and osteophyte extending to the neural foramina causing a mild right stenosis without neural impingement. L3-L4: There is mild disc degeneration with annular disc bulge asymmetric to the left causing a mild subarticular recess stenosis with disc and osteophyte extending to the neural foramina causing a mild right stenosis without evidence of neural impingement. L4-L5: There is mild disc degeneration with annular disc bulge causing a severe subarticular recess stenosis with impingement of the transiting L5 nerve roots, superimposed spondylolisthesis and facet arthropathy causing a critical spinal canal stenosis with complete effacement of thecal sac. There is disc and osteophyte extending to the neural foramina causing mild bilateral stenosis without evidence of neural impingement. There is advanced facet arthropathy with moderate to advanced synovitis with bone marrow edema and inflammation of the sinus soft tissues. L5-S1: Moderate disc degeneration with annular disc bulge causing a mild subarticular recess stenosis with disc and osteophyte extending to the neural foramina without evidence of impingement or significant stenosis. IMPRESSION: Mild disc degeneration at L4-5 with annular disc bulge causing a severe subarticular recess stenosis with impingement transiting L5 nerve roots and a critical spinal canal stenosis with effacement of the thecal sac. Recommend neurosurgical consult for decompression. Communications: Verify Receipt Electronically signed by: Agustina Dykes MD 10/13/24 00:28 AM Medications Administered Current Inpatient Medications Acetaminophen (Acetaminophen 500 Mg Tab) 1,000 mg PO TID [facility] Stop: 11/11/24 22:16 Last Admin: 10/12/24 22:48 Dose: 1,000 mg Apixaban (Apixaban 5 Mg Tablet) 10 mg PO BID [facility] Stop: 10/19/24 09:01 Last Admin: 10/12/24 22:50 Dose: 10 mg Aspirin (Aspirin 81 Mg Ectab) 81 mg PO DAILY [facility] Stop: 11/12/24 08:59 Calcium Carbonate (Calcium Carbonate 1250mg Tab) 1 tab PO DAILY [facility] Stop: 11/12/24 08:59 Cyanocobalamin (Cyanocobalamin (B-12) 500 Mcg Tablet) 500 mcg PO DAILY [facility] Stop: 11/12/24 08:59 Docusate Sodium (Docusate Sodium 100 Mg Cap) 100 mg PO BID [facility] Stop: 11/11/24 22:16 Last Admin: 10/12/24 22:48 Dose: 100 mg Famotidine (Famotidine 20 Mg Tab) 20 mg PO DAILY PRN PRN Reason: Heartburn Stop: 11/11/24 22:16 Ceftriaxone Sodium (Rocephin) 2,000 mg in 50 mls @ 100 mls/hr IV Q24H [facility] Stop: 10/17/24 22:59 Last Infusion: 10/12/24 23:31 Dose: Infused Lactobacillus Acidophilus (Advanced Probiotic 625 Mg Capsule) 1,250 mg PO DAILY [facility] Stop: 11/12/24 08:59 Lorazepam (Lorazepam 1 Mg Tab) 1 mg PO BID PRN PRN Reason: Anxiety/Stress Stop: 11/11/24 22:16 Losartan Potassium (Losartan Potassium 50 Mg Tab) 50 mg PO DAILY [facility] Stop: 11/12/24 08:59 Melatonin (Melatonin 3 Mg Tab) 6 mg PO HS PRN PRN Reason: Sleep Stop: 11/11/24 22:16 Last Admin: 10/12/24 22:47 Dose: 6 mg Morphine Sulfate (Morphine Sulfate 4 Mg/Ml 1 Ml Carp\Vial) 3 mg IV Q6H PRN PRN Reason: Severe Pain (Scale 7, 8, 9,10) Stop: 10/26/24 22:16 Ondansetron HCl (Ondansetron Inj 2 Mg/Ml 2 Ml Vial) 4 mg IV Q6H PRN PRN Reason: Nausea Stop: 11/11/24 22:16 Oxybutynin Chloride (Oxybutynin Chloride 5 Mg Tab) 5 mg PO TID [facility] Stop: 11/11/24 22:16 Last Admin: 10/12/24 22:51 Dose: 5 mg Polyethylene Glycol (Polyethylene (Miralax) 17 Gm Pack) 17 gm PO DAILY PRN PRN Reason: Constipation Stop: 11/11/24 22:16 Tramadol HCl (Tramadol Hcl 50 Mg Tablet) 50 mg PO Q4H PRN PRN Reason: Moderate Pain (Scale 4, 5, 6) Stop: 11/11/24 22:16 Vitamin D (Cholecalciferol 25 Mcg (1000 Units) Tab) 50 mcg PO DAILY [facility] Stop: 11/12/24 08:59
[2024-10-13] MEDS: LOSARTAN POTASSIUM 50 MG TAB PO SCH (08:32)
[2024-10-13] MEDS: ADVANCED PROBIOTIC 625 MG CAPSULE PO SCH (08:33)
[2024-10-13] MEDS: CYANOCOBALAMIN (B-12) 500 MCG TABLET PO SCH (08:33)
[2024-10-13] MEDS: CHOLECALCIFEROL 25 MCG (1000 UNITS) TAB PO SCH (08:33)
[2024-10-13] MEDS: CALCIUM CARBONATE 1250MG TAB PO SCH (08:34)
[2024-10-13] MEDS ORDERED: NON-FORMULARY MEDICATION (Vitamin E 268 mg (400 unit) Capsule) PO SCH (09:00)
--- NOTE | 2024-10-13 13:32 | Orthopedic Consultation ---
Date of Service October 13, 2024 Assessment & Plan (1) Spinal stenosis of lumbar region: Dr. Arnold to see patient later this afternoon. However, did inform patient and her daughter that we will likely be pursuing a more conservative treatment option than surgery, at least initially. Patient says she has never had back issues in the past, and really has not had any associated symptoms until 2 weeks ago, which is when she started to notice some posterior lateral hip pain bilaterally, as well as some symptoms that travel down the posterior thighs to the level of the knee, but not beyond. However, she does also note numbness in both feet. But on exam, she is able to discern light touch to all parts of the foot bilaterally. She has normal strength on exam and no deficits noted. Patient is denying any mary bowel or bladder incontinence, but she does admit to longstanding urinary incontinence. She does say that she knows when she does urinate. She has no issues with bowel movements. Patient denies any saddle anesthesia. At this point, will recommend a course of some steroids. Did briefly also discuss the option of pain management for possibility of an epidural injection. Patient was also seen by Dr. Arnold later in the day, and his A/P can be found in the HPI section. I, Sukhi Rondon PA-C, personally performed HPI (which includes the [facility]), physical exam, and assessment and plan. I then dictated a portion of the service for Dr. Arnold, who performed an additional HPI (which includes the [facility]), physical exam, and assessment and plan. (2) Numbness of both lower extremities: (3) Lumbar radicular pain: History of Present Illness Reason for Consultation: Lower extremity numbness Requesting Physician: . Attending Physician: Temo Cadena MD 79-year-old female who reports today that she started developing some numbness in the lower extremities and some limited pain both in the lower back and lower extremities approximately 2 weeks ago, no prior issues. History from the ER: presents to the emergency department with her daughter for evaluation of pain in both thighs, right worse than left. She reports that the pain goes all the way down to her feet. The patient reports that the pain is significantly worsened when she tries to get up and move, improved whenever she rests. The patient reports that she has already seen her PCP with lumbar spine x-rays that were reportedly normal. The patient was also on a course of Flexeril and steroids without relief. The patient was not provided any additional prescription analgesics. The patient denies prior back injuries or other arthritis history. She also denies any swelling of the lower extremities, or personal or family history of blood clots. The patient denies any difficulty with urination or bowel movements, abdominal pain or recent infections. Patient notes today that she was up with physical therapy, she is only taken acetaminophen for pain as of yet but currently residing in a chair has no pain. She still has some numbness but that varies to some degree. Exam reveals the patient to have at least 4+ right EHL ankle dorsiflexion strength slightly less so on the left side, appropriate strength for plantarflexion and knee extension flexion strength. She has a negative straight leg raise bilaterally, decreased to light touch diffusely to a minimal degree in the lower extremities. EXAM: MR Lumbar Spine Without Intravenous Contrast October 12, 2024 CLINICAL HISTORY: Reason for exam: low back pain. COMPARISON: No relevant prior studies available. FINDINGS: Vertebrae: There are 5 lumbar type vertebral bodies with a mild generalized curved to the left and normal lumbar lordosis. There is a mild grade 1 anterolisthesis of L4 and L5 measuring 5.5 mm. Otherwise, is normal vertebral body height and alignment. The bone mesial is heterogeneous with reactive endplate changes. No acute fracture. Spinal cord: The conus demonstrates a stretch morphology, terminating at T12-L1. Soft tissues: Advanced atrophy of the iliopsoas, paraspinous intraspinous musculature. The aorta and IVC flow voids are intact. The visualized kidneys are unremarkable. DISCS/SPINAL CANAL/NEURAL FORAMINA: L1-L2: There is mild disc degeneration with annular disc bulge flattening the ventral thecal sac with disc extending to the neural foramina without evidence of impingement or significant stenosis. L2-L3: Moderate disc degeneration with annular disc bulge causing a mild left subarticular recess stenosis with disc and osteophyte extending to the neural foramina causing a mild right stenosis without neural impingement. L3-L4: There is mild disc degeneration with annular disc bulge asymmetric to the left causing a mild subarticular recess stenosis with disc and osteophyte extending to the neural foramina causing a mild right stenosis without evidence of neural impingement. L4-L5: There is mild disc degeneration with annular disc bulge causing a severe subarticular recess stenosis with impingement of the transiting L5 nerve roots, superimposed spondylolisthesis and facet arthropathy causing a critical spinal canal stenosis with complete effacement of thecal sac. There is disc and osteophyte extending to the neural foramina causing mild bilateral stenosis without evidence of neural impingement. There is advanced facet arthropathy with moderate to advanced synovitis with bone marrow edema and inflammation of the sinus soft tissues. L5-S1: Moderate disc degeneration with annular disc bulge causing a mild subarticular recess stenosis with disc and osteophyte extending to the neural foramina without evidence of impingement or significant stenosis. IMPRESSION: Mild disc degeneration at L4-5 with annular disc bulge causing a severe subarticular recess stenosis with impingement transiting L5 nerve roots and a critical spinal canal stenosis with effacement of the thecal sac. Recommend neurosurgical consult for decompression. Review of MRI images of the lumbar spine from October 12, 2024 about Lili, this is my separate interpretation, this reveals the patient's main findings to be at L4-5 where she has a combination of grade 1 anterolisthesis of L4 and L5 of the degenerative nature, there is significant facet arthropathy with thickened ligamentum flavum in combination with a broad-based disc bulge causing severe stenosis at this level. Additional degenerative changes are noted involving the facets and L5-S1 disc but no stenosis, and less degenerative changes noted at the upper remaining levels. Impression: Lumbar stenosis with degenerative spondylolisthesis at L4-5, recent onset of symptomatology from 2 weeks ago. Plan: Today I reviewed the imaging studies with the patient and the daughter and went over these in detail. At this time I would recommend the patient undergo a limited taper dose steroid for 1 to 2 days, and mobilize with physical therapy. If the patient improves over the next several days, we can then plan for elective surgery at the L4-5 level which was discussed with the patient and her daughter today, specifically posterior decompression instrumentation and fusion at the L4-5 level. Follow-up in the office will be performed if the patient mo bilizes adequately, if not we discussed the possibility of surgical intervention later this week if found to be necessary, they are in agreement with this plan. Allergies Allergy/AdvReac Type Severity Reaction Status Date / Time amoxicillin [From Augmentin] Allergy Intermediate Diarrhea Unverified 10/12/24 17:43 clavulanic acid Allergy Intermediate Diarrhea Unverified 10/12/24 17:43 [From Augmentin] Sulfa (Sulfonamide Allergy Intermediate Agitated Unverified 10/12/24 17:44 Antibiotics) simvastatin AdvReac Intermediate lichen Verified 10/12/24 17:43 planus rash when dose was increased Home Medications Medication Instructions Recorded Confirmed Type aspirin 81 mg chewable tablet 81 mg PO DAILY #0 tabs 05/08/12 10/12/24 History cholecalciferol (vitamin D3) 50 50 mcg PO DAILY #0 caps 05/08/12 10/12/24 History mcg (2,000 unit) tablet (Vitamin D3) clobetasol 0.05 % topical cream 1 applic topical BID PRN reaction 05/08/12 10/12/24 History ##0 fenofibrate micronized 200 mg 200 mg PO DAILY #0 caps 05/08/12 10/12/24 History capsule oxybutynin chloride 5 mg tablet 5 mg PO TID #0 tabs 05/08/12 10/12/24 History calcium carbonate (Calcium 600) 600 mg PO DAILY 10/12/24 10/12/24 History chlorthalidone 25 mg tablet 25 mg PO DAILY 10/12/24 10/12/24 History cyanocobalamin (vitamin B-12) 500 500 mcg PO DAILY 10/12/24 10/12/24 History mcg tablet (Vitamin B-12) lorazepam 1 mg tablet 1 mg PO BID PRN Anxiety/Stress 10/12/24 10/12/24 History losartan 50 mg tablet 50 mg PO DAILY 10/12/24 10/12/24 History prednisone 10 mg tablets in a dose 10 mg PO DIRECTED 10/12/24 10/12/24 History pack vitamin E 268 mg (400 unit) capsule 268 mg PO DAILY 10/12/24 10/12/24 History Past Med/Surg History Problem List (Updated 10/15/24 @ 10:45 by Lan Tidwell DO) Asymptomatic stenosis of right carotid artery At risk for sleep apnea Thrombosis of left popliteal artery Atrial flutter, paroxysmal Lumbar radicular pain Numbness of both lower extremities Spinal stenosis of lumbar region Low back pain potentially associated with radiculopathy Ambulatory dysfunction Left leg DVT Pain in both lower extremities (Acute) Thrombosis of both popliteal veins (Acute) Acute UTI (Acute) Medical History Carotid artery stenosis HLD (hyperlipidemia) HTN (hypertension) Female urinary stress incontinence (Unknown) Cholelithiasis without obstruction (Unknown) Surgical History No significant past surgical history Social History Smoking Status: Former smoker Tobacco Type: Cigarettes Cigarettes Per Day: 2; Smoking End Date: 12 1/2 years ago; Hx Alcohol Use: No Hx Substance Use: No Preferred Language: Czech Communication Ability: Effective Heat Treater Head Required: No Beliefs That Will Affect Care: None marital status: Current Living Situation: Family Feels Safe at Home: Yes Safety Concerns: Feels Safe At This Time Assistive Devices: Cane Review of Systems All systems reviewed & are unremarkable except as noted in HPI & below. Physical Exam . Results & Data Results & Data Laboratory Results . Diagnostic Findings . PG Care Time/CCT Total # of Minutes Spent Total Time Spent with Patient: Total time spent is greater than 50% in coordination of care (as documented) at patient's floor/unit and/or counseling patient: [place] [address] IN/OBS CONSULT LVL 5,80M Patient Type New Medical Decision Making Moderate Complexity Diagnoses Spinal stenosis of lumbar region M48.061 Numbness of both lower extremities R20.0 Lumbar radicular pain M54.16
[2024-10-13] MEDS ORDERED: Heparin IV Adult Wt-Based Standard w/ INITIAL Bolus Protocol IV SCH (20:58)
[2024-10-13] MEDS: dexAMETHasone 8 MG in SYRINGE 0 ML IV ONE (21:16)
[2024-10-13] MEDS ORDERED: oxyCODONE HCL IR 5 MG TAB (IMMEDIATE RELEASE) PO PRN (21:20)
[2024-10-13 21:30] LABS: Basophils # (auto) 0.06 K/uL (0.00-0.20); Basophils % (auto) 0.4 %; Eosinophils # (auto) 0.34 K/uL (0.00-0.50); Eosinophils % (auto) 2.2 %; Hematocrit (blood only) 44.3 % (37.0-47.0); Hemoglobin 14.9 g/dl (12.0-16.0); Immature Granulocytes # (auto) 0.15 K/uL (0.01-0.20); Lymphocytes # (auto) 4.77 K/uL (1.20-3.40); Lymphocytes % (auto) 30.7 %; Mean Corpuscular Hemoglobin 28.3 pg (25.0-34.0); Mean Corpuscular Hgb Conc 33.6 g/dL (32.0-36.0); Mean Corpuscular Volume 84.1 fL (80.0-100.0); Mean Platelet Volume 9.9 fL (9.4-12.4); Monocytes # (auto) 1.63 K/uL (0.11-0.59); Monocytes % (auto) 10.5 %; Neutrophils # (auto) 8.57 K/uL (1.40-6.50); Neutrophils % (auto) 55.2 %; Platelet Count 327 K/uL (130-400); RDW Coefficient of Variation 13.4 % (11.5-14.5); RDW Standard Deviation 41.1 fL (36.4-46.3); Red Blood Count 5.27 M/uL (4.20-5.40); White Blood Count 15.52 K/ul (4.8-10.8)
[2024-10-13] MEDS: HEPARIN SOD (PORCINE) 1000 UNIT/ML IV ONE (21:51)
[2024-10-13] MEDS: HEPARIN 25000 UNIT/500 ML D5W 25,000 UNITS/500 ML BAG IV SCH (21:51)
[2024-10-13 22:31] LABS: ANTI-Xa, UFH(UnfractionatedHep 0.88 IU/ml (0.3-0.7)
[2024-10-13 23:20] LABS: Partial Thromboplastin Ratio 0.9; Partial Thromboplastin Time 24 Seconds (21-31)
[2024-10-14 01:52] LABS: ANTI-Xa, UFH(UnfractionatedHep 1.04 IU/ml (0.3-0.7)
[2024-10-14 07:09] LABS: ANTI-Xa, UFH(UnfractionatedHep 0.36 IU/ml (0.3-0.7)
[2024-10-14 07:12] LABS: BUN Creatinine Ratio 31.9 (10-20); Calcium 9.1 mg/dl (8.6-10.3); Creatinine Clr Calc Pharmacy 39.8 ml/min; Potassium 4.4 mmol/L (3.5-5.1)
[2024-10-14] MEDS: ASPIRIN 81 MG ECTAB PO SCH (07:45)
[2024-10-14] MEDS: DICLOFENAC SOD 1% GEL 100 GM TUBE EXT SCH (07:51)
[2024-10-14] MEDS: dexAMETHasone 4 MG in SYRINGE 0 ML IV SCH (07:51)
--- NOTE | 2024-10-14 12:31 | Hospitalist Progress Note ---
Date of Service October 14, 2024 Assessment & Plan (1) Low back pain potentially associated with radiculopathy: (2) Ambulatory dysfunction: (3) Left leg DVT: (4) Acute UTI: (5) HTN (hypertension): (6) HLD (hyperlipidemia): (7) Carotid artery stenosis: Plan 79 year old female with PMH significant for HTN, HLD, carotid artery stenosis, CKD III, depression, vitamin D deficiency, and stress incontinence who is admitted for intractable back pain. Acute low back pain with radiculopathy L4-5 Annular Disc Bulge Ambulatory dysfunction Lumbar spine MRI revealed mild disc degeneration at L4-5 with annular disc bulge causing severe subarticular recess stenosis with impingement and a critical spinal canal stenosis with effacement of the thecal sac Pain control with scheduled tylenol tid, PRN tramadol, PRN morphine Ortho spine surgery consult: likely IV steroids and possible epidural injection PT consult: reduced tolerance to activities, ROM, strength OT consult: impaired ADL participation, reduced functional mobility, decreased activity tolerance, fear of falling Patient expressed desire to go to [facility] for additional support as daughter's home has many steps that she cannot currently do 4/2 Pain Management: outpatient SI joint injection improving overall continue Decadron 4mg IV BID continue PT/OT eval LLE DVT Venous duplex revealed 1. Paired left popliteal veins with an acute thrombosed vein, likely the gastrocnemius. 2. A small complicated cyst in the right popliteal fossa measuring 2.1x 2.2 x .7cm. Apixaban 10mg bid x 7 days then 5mg bid thereafter Acute UTI UA +nitrites, leuk esterase, bacteria Patient asymptomatic but disclosed that she had a UTI 3 weeks ago and was prescribed Augmentin but did not complete the course due to diarrhea Urine culture: E coli Day #3 IV ceftriaxone 2g HTN Continue losartan Holding chlorthalidone monitor BP HLD Continue baby aspirin CKD III crea 1.2--> 1.1 Received 500mL NSS Holding chlorthalidone DVT Prophylaxis: on Eliquis Code Status: DNR/DNI PCP: Latrice Narvaez PA-C Disposition: will likely need acute rehab Admission and Anticipated Discharge Date Admission Date: October 12, 2024 Subjective ff up for back pain, etc seen resting in chair, comfortable states back and hip pain is improving no leg weakness, has occasional BL feet numbness no L leg pain no other symptom Review of Systems Review of Systems: all noted and negative except for above Physical Exam Physical Exam: General- oriented x 3, not in distress, speaks in sentences with no effort or accessory muscle use Eyes- anicteric Neck- no JVD Lungs- clear breath sounds bilaterally, no rales/wheezes Heart- normal rate, regular rhythm; no murmurs Abdomen- normal bowel sounds, nondistended, soft, nontender Back- no tenderness Extremities- no pretibial edema, no calf tenderness Neuro- alert, oriented x 3; no gross focal neurologic deficits Skin- warm & dry Results & Data Results & Data Vital Signs (Past 12 Hours) Vital Signs Temp Pulse Pulse Pulse Resp BP Pulse Ox 10/14/24 07:35 36.7 C 68 15 140/74 96 10/14/24 07:31 90 10/14/24 07:23 10/14/24 04:01 36.7 C 88 18 170/75 H 94 O2 Del Method 10/14/24 07:35 Room Air 10/14/24 07:31 10/14/24 07:23 Room Air 10/14/24 04:01 Room Air all noted and reviewed including below
[2024-10-14] MEDS: APIXABAN 5 MG TABLET PO SCH (13:53)
[2024-10-14] MEDS: DOCUSATE SODIUM 100 MG CAP PO PRN (17:32)
--- NOTE | 2024-10-14 23:34 | Communication Note ---
Date of Service: October 14, 2024 Patient with transient A-flutter episode around 10:20 PM. Patient asymptomatic during episode as per RN. AP Paroxysmal atrial flutter TTE, Cardiology consult in a.m.
[2024-10-15 05:51] LABS: Basophils # (auto) 0.02 K/uL (0.00-0.20); Basophils % (auto) 0.1 %; Eosinophils # (auto) 0.01 K/uL (0.00-0.50); Eosinophils % (auto) 0.1 %; Hematocrit (blood only) 41.4 % (37.0-47.0); Hemoglobin 13.9 g/dl (12.0-16.0); Immature Granulocytes # (auto) 0.18 K/uL (0.01-0.20); Immature Granulocytes % (auto) 1.2 %; Lymphocytes # (auto) 2.47 K/uL (1.20-3.40); Lymphocytes % (auto) 16.3 %; Mean Corpuscular Hgb Conc 33.6 g/dL (32.0-36.0); Mean Corpuscular Volume 83.3 fL (80.0-100.0); Mean Platelet Volume 9.9 fL (9.4-12.4); Monocytes # (auto) 0.97 K/uL (0.11-0.59); Monocytes % (auto) 6.4 %; Neutrophils # (auto) 11.51 K/uL (1.40-6.50); Neutrophils % (auto) 75.9 %; Platelet Count 312 K/uL (130-400); RDW Standard Deviation 39.5 fL (36.4-46.3); Red Blood Count 4.97 M/uL (4.20-5.40); White Blood Count 15.16 K/ul (4.8-10.8)
[2024-10-15 06:04] LABS: BUN Creatinine Ratio 35.3 (10-20); Calcium 9.2 mg/dl (8.6-10.3); Chol HDL Ratio 2.4 (0-5); Creatinine Clr Calc Pharmacy 46.4 ml/min; Potassium 4.5 mmol/L (3.5-5.1)
[2024-10-15 06:20] LABS: Thyroid Stimulating Hormone 0.254 uIu/ml (0.300-4.500)
[2024-10-15 06:54] LABS: T4 Free Thyroxine 1.24 ng/dl (0.61-1.60)
[2024-10-15 07:37] LABS: ANTI-Xa, UFH(UnfractionatedHep 0.77 IU/ml (0.3-0.7)
[2024-10-15 07:45] LABS: Estimated Average Glucose 120 mg/dl; Hemoglobin A1C 5.8 % (4.5-5.6)
[2024-10-15] MEDS: APIXABAN 5 MG TABLET PO SCH (08:03)
[2024-10-15] MEDS: dexAMETHasone 4 MG in SYRINGE 0 ML IV SCH (09:04)
--- NOTE | 2024-10-15 09:54 | Electrocardiogram Report ---
Test Reason : Blood Pressure : */* mmHG Vent. Rate : 79 BPM Atrial Rate : 79 BPM P-R Int : 214 ms QRS Dur : 88 ms QT Int : 386 ms P-R-T Axes : 55 51 101 degrees QTcB Int : 442 ms Sinus rhythm with 1st degree A-V block Abnormal ECG No previous ECGs available Confirmed by Juan Alexis ([id number]) on 10/15/2024 9:54:00 AM Referred By: REFERRED SELF Confirmed By: Juan Alexis
--- NOTE | 2024-10-15 10:39 | Cardiology Consultation ---
Date of Consultation October 15, 2024 Assessment & Plan (1) Atrial flutter, paroxysmal: (2) Thrombosis of left popliteal artery: (3) Lumbar radicular pain: (4) At risk for sleep apnea: (5) Asymptomatic stenosis of right carotid artery: Plan 79-year-old female admitted with intractable low back pain with radiculopathy. Telemetry revealing short episode of atrial flutter without associated symptoms. Recommendations: * Continue Eliquis. * Will not add AV rodriguez blocking agents/beta-sherine at this time due to intermittent bradycardia. * Risk factors for obstructive sleep apnea noted, consider nocturnal pulse ox trend and/or outpatient sleep medicine evaluation. * Outpatient 14-day ZIO monitor. * Results of echocardiogram reviewed with patient. * Routine outpatient vascular surgery follow-up of chronic, moderate asymptomatic right internal carotid artery stenosis * No further inpatient testing recommended at this time. Lan Tidwell DO, [facility] History of Present Illness Reason for Consultation: Paroxysmal atrial flutter Requesting Physician: Dr. Bulmaro Espinal Attending Physician: Sam Cruz MD History of Present Illness 79-year-old female present to the emergency department 10/12/2024 with intractable low back pain. Subsequently diagnosed with acute urinary tract infection, left lower extremity superficial thrombus, and paroxysmal atrial flutter. Telemetry reviewed demonstrating approximately 20-minute episode of atrial flutter with heart rate in the 70s to 80s last night. No associated symptoms. Currently in sinus rhythm with sinus arrhythmia, heart rate in the 60s and 70s. Denies palpitations, lightheadedness, or dizziness. No chest discomfort or heaviness. Endorses chronic dyspnea on exertion. No orthopnea, PND, or lower extremity edema. Denies personal history of coronary disease, diabetes, rheumatic fever as a child, heart failure, or CVA. Allergies Allergy/AdvReac Type Severity Reaction Status Date / Time amoxicillin [From Augmentin] Allergy Intermediate Diarrhea Unverified 10/12/24 17:43 clavulanic acid Allergy Intermediate Diarrhea Unverified 10/12/24 17:43 [From Augmentin] Sulfa (Sulfonamide Allergy Intermediate Agitated Unverified 10/12/24 17:44 Antibiotics) simvastatin AdvReac Intermediate lichen Verified 10/12/24 17:43 planus rash when dose was increased Home Medications Medication Instructions Recorded Confirmed Type aspirin 81 mg chewable tablet 81 mg PO DAILY #0 tabs 05/08/12 10/12/24 History cholecalciferol (vitamin D3) 50 50 mcg PO DAILY #0 caps 05/08/12 10/12/24 History mcg (2,000 unit) tablet (Vitamin D3) clobetasol 0.05 % topical cream 1 applic topical BID PRN reaction 05/08/12 10/12/24 History ##0 fenofibrate micronized 200 mg 200 mg PO DAILY #0 caps 05/08/12 10/12/24 History capsule oxybutynin chloride 5 mg tablet 5 mg PO TID #0 tabs 05/08/12 10/12/24 History calcium carbonate (Calcium 600) 600 mg PO DAILY 10/12/24 10/12/24 History chlorthalidone 25 mg tablet 25 mg PO DAILY 10/12/24 10/12/24 History cyanocobalamin (vitamin B-12) 500 500 mcg PO DAILY 10/12/24 10/12/24 History mcg tablet (Vitamin B-12) lorazepam 1 mg tablet 1 mg PO BID PRN Anxiety/Stress 10/12/24 10/12/24 History losartan 50 mg tablet 50 mg PO DAILY 10/12/24 10/12/24 History prednisone 10 mg tablets in a dose 10 mg PO DIRECTED 10/12/24 10/12/24 History pack vitamin E 268 mg (400 unit) capsule 268 mg PO DAILY 10/12/24 10/12/24 History Patient History Medical History Carotid artery stenosis HLD (hyperlipidemia) HTN (hypertension) Female urinary stress incontinence (Unknown) Cholelithiasis without obstruction (Unknown) Surgical History No significant past surgical history Social History Smoking Status: Former smoker Tobacco Type: Cigarettes Cigarettes Per Day: 2; Smoking End Date: 12 1/2 years ago; Hx Alcohol Use: No Hx Substance Use: No Preferred Language: Slovak Communication Ability: Effective [employer] E[employer] Developer Required: No Beliefs That Will Affect Care: None marital status: Current Living Situation: Family Feels Safe at Home: Yes Safety Concerns: Feels Safe At This Time Assistive Devices: Cane Review of Systems Review of Systems: All systems reviewed & are unremarkable except as noted in Subjective Physical Exam Constitutional: well developed, well nourished and + obese Respiratory: no respiratory distress, no labored breathing and no retractions Auscultation: no crackles, no rales, no rhonchi and no wheezes Cardiovascular: Rate/Rhythm: regular rate and regular rhythm Heart Sounds: normal S1 and normal S2; no murmur Vessels: no JVD and no carotid bruit Extremities: no edema Gastrointestinal (Abdomen): Inspection/Auscultation: abdomen not distended and + abnormal bowel sounds Percussion/Palpation: abdomen soft; abdomen nontender, no guarding and abdomen not rigid Neurologic: CN's II-XI intact bilaterally and moves all extremities Results & Data Vital Signs (Past 12 Hours) Vital Signs Temp Pulse Resp BP Pulse Ox O2 Del Method 10/15/24 07:53 36.5 C 73 18 135/89 95 Room Air 10/15/24 07:28 Room Air 10/15/24 00:09 36.5 C 50 L 18 147/79 H 96 Room Air Laboratory Results Lipids 10/15/24 Range/Units 05:21 Triglycerides 66 (0-150) mg/dl Cholesterol 134 (0-200) mg/dl HDL Cholesterol 55 mg/dl Cholesterol/HDL Ratio 2.4 (0-5) CBC 10/15/24 Range/Units 05:21 WBC 15.16 H (4.8-10.8) K/ul RBC 4.97 (4.20-5.40) M/uL Hgb 13.9 (12.0-16.0) g/dl Hct 41.4 (37.0-47.0) % Plt Count 312 (130-400) K/uL Neut # (Auto) 11.51 H (1.40-6.50) K/uL Lymph # (Auto) 2.47 (1.20-3.40) K/uL [place] # (Auto) 0.97 H (0.11-0.59) K/uL Eos # (Auto) 0.01 (0.00-0.50) K/uL Baso # (Auto) 0.02 (0.00-0.20) K/uL Comprehensive Metabolic Panel 10/15/24 Range/Units 05:21 Sodium 131 L (136-145) mmol/L Potassium 4.5 (3.5-5.1) mmol/L Chloride 98 (98-107) mmol/L Carbon Dioxide 28 (21-32) mmol/L BUN 36 H (6-23) mg/dl Creatinine 1.02 (0.6-1.2) mg/dl Glucose 157 H (70-99(Fasting)) mg/dl Calcium 9.2 (8.6-10.3) mg/dl Intake and Output 10/14/24 10/15/24 10/15/24 22:59 06:59 14:59 Intake Total 530 / 1620 250 / 1620 Output Total 700 / 700 Balance 530 / 920 -450 / 920 Intake: IV 50 / 50 cefTRIAXone SODIUM 2,000 mg In 50 / 50 50 ml @ 100 mls/hr IV Q24H [facility] Rx#:[id number] Oral 480 / 1570 250 / 1570 Output: Urine Amount (Catheter) 700 / 700 External 700 / 700 Other: # Unmeasured Voids 2 Weight 96.933 kg Weight Measurement Method Built in [facility]
--- NOTE | 2024-10-15 14:18 | Hospitalist Progress Note ---
Date of Service October 15, 2024 Assessment & Plan (1) Low back pain potentially associated with radiculopathy: (2) Ambulatory dysfunction: (3) Left leg DVT: (4) Acute UTI: (5) HTN (hypertension): (6) HLD (hyperlipidemia): (7) Carotid artery stenosis: Plan 79 year old female with PMH significant for HTN, HLD, carotid artery stenosis, CKD III, depression, vitamin D deficiency, and stress incontinence who is admitted for intractable back pain. Acute Low back pain with radiculopathy L4-5 Annular Disc Bulge Ambulatory dysfunction Lumbar spine MRI revealed mild disc degeneration at L4-5 with annular disc bulge causing severe subarticular recess stenosis with impingement and a critical spinal canal stenosis with effacement of the thecal sac Pain control with scheduled tylenol tid, PRN tramadol, PRN morphine Ortho spine surgery consult: likely IV steroids and possible epidural injection PT consult: reduced tolerance to activities, ROM, strength OT consult: impaired ADL participation, reduced functional mobility, decreased activity tolerance, fear of falling Patient expressed desire to go to [facility] for additional support as daughter's home has many steps that she cannot currently do 10/14 Pain Management: outpatient SI joint injection improving overall continue Decadron 4mg IV BID continue PT/OT eval 10/15 continues to improve Decadron tapered to 4mg IV daily PT/OT eval will need acute Rehab Paroxysmal Atrial flutter developed in the evening of 10/14 evaluated by Cardiology Service, Dr. Tidwell: * Continue Eliquis. * Will not add AV rodriguez blocking agents/beta-sherine at this time due to intermittent bradycardia. * Risk factors for obstructive sleep apnea noted, consider nocturnal pulse ox trend and/or outpatient sleep medicine evaluation. * Outpatient 14-day ZIO monitor. * Results of echocardiogram reviewed with patient. * Routine outpatient vascular surgery follow-up of chronic, moderate asymptomatic right internal carotid artery stenosis * No further inpatient testing recommended at this time. LLE DVT Venous duplex revealed 1. Paired left popliteal veins with an acute thrombosed vein, likely the gastrocnemius. 2. A small complicated cyst in the right popliteal fossa measuring 2.1x 2.2 x .7cm. Apixaban 10mg bid x 7 days then 5mg bid thereafter Acute UTI UA +nitrites, leuk esterase, bacteria Patient asymptomatic but disclosed that she had a UTI 3 weeks ago and was prescribed Augmentin but did not complete the course due to diarrhea Urine culture: E coli Day #4/5 IV ceftriaxone 2g HTN Continue losartan Holding chlorthalidone monitor BP HLD Continue baby aspirin CKD III crea 1.2--> 1.1 Received 500mL NSS Holding chlorthalidone DVT Prophylaxis: on Eliquis Code Status: DNR/DNI PCP: Latrice Narvaez PA-C Disposition: will need acute rehab Admission and Anticipated Discharge Date Admission Date: October 12, 2024 Subjective ff up for back pain, etc events overnight noted states she feels fine overall denies palpitations, chest pain, shortness of breath, dizziness reports no back pain at rest, 7/10 back/hip pain with ambulation no leg weakness/numbness no other symptoms Review of Systems Review of Systems: all noted and negative except for above Physical Exam Physical Exam: General- oriented x 3, not in distress, speaks in sentences with no effort or accessory muscle use Eyes- anicteric Neck- no JVD Lungs- clear breath sounds bilaterally, no rales/wheezes Heart- normal rate, regular rhythm; no murmurs Abdomen- normal bowel sounds, nondistended, soft, nontender Extremities- no pretibial edema, no calf tenderness Neuro- alert, oriented x 3; no gross focal neurologic deficits Skin- warm & dry Results & Data Results & Data Vital Signs (Past 12 Hours) Vital Signs Temp Pulse Pulse Resp BP BP Pulse Ox 10/15/24 11:47 36.6 C 84 18 156/79 H 93 10/15/24 11:02 54 L 10/15/24 07:53 36.5 C 73 18 135/89 95 10/15/24 07:28 O2 Del Method 10/15/24 11:47 Room Air 10/15/24 11:02 10/15/24 07:53 Room Air 10/15/24 07:28 Room Air all noted and reviewed including below
--- NOTE | 2024-10-15 14:44 | Electrocardiogram Report ---
Test Reason : Blood Pressure : */* mmHG Vent. Rate : 82 BPM Atrial Rate : 82 BPM P-R Int : 206 ms QRS Dur : 84 ms QT Int : 366 ms P-R-T Axes : 67 44 102 degrees QTcB Int : 427 ms Poor data quality, interpretation may be adversely affected Normal sinus rhythm Nonspecific T wave abnormality Lateral leads Abnormal ECG When compared with ECG of 14-Oct-2024 22:39, No significant change was found Confirmed by Juan Alexis ([id number]) on 10/15/2024 2:44:07 PM Referred By: REFERRED SELF Confirmed By: Juan Alexis
--- NOTE | 2024-10-15 15:47 | Orthopedic Progress Note ---
Date of Service October 15, 2024 Subjective Patient notes that she has not been ambulatory in the hallway she has been up with assistance to the bathroom. She does not feel any of her symptoms have worsened since several days ago. No changes relative to exam. Impression: Degenerative spondylolisthesis with stenosis at the L4-5 level as main source of symptoms. Plan: I discussed with the patient that certainly I think she needs to be mobilized with physical therapy, they are to continue the steroids for a limited amount of time and hopefully she can continue to improved to some limited degree though I once again emphasized to her that I think operative interventions going to need to be employed at some point. She expressed the concern that with recent cardiac issue, she would like to hold on any surgical intervention but certainly I would recommend follow-up in the office at the very least with additional discussion of potential surgical intervention. Will continue to follow tomorrow. Review of Systems All systems reviewed & are unremarkable except as noted in HPI & below. Physical Exam . Results & Data Results & Data Laboratory Results . Diagnostic Findings . PG Care Time/CCT Total # of Minutes Spent Total Time Spent with Patient: Total time spent is greater than 50% in coordination of care (as documented) at patient's floor/unit and/or counseling patient: Coding Level of Care Code 03666 SUB INP/OBS CARE 2/35MIN
[2024-10-16 08:02] LABS: BUN Creatinine Ratio 35.6 (10-20); Calcium 9.2 mg/dl (8.6-10.3); Creatinine Clr Calc Pharmacy 47.7 ml/min; Potassium 4.3 mmol/L (3.5-5.1)
[2024-10-16 09:31] LABS: ANTI-Xa, UFH(UnfractionatedHep > 1.50 IU/ml (0.3-0.7)
--- NOTE | 2024-10-16 12:36 | XRay Report ---
XR lumbar spine flex/ext only CLINICAL HISTORY: Low back pain. COMPARISON STUDY: Lumbar spine MRI October 12, 2024. FINDINGS: 1 cm of anterolisthesis of L4 and L5 is due to facet arthrosis. This does not change with f lexion or extension. Alignment of the lumbar spine is otherwise anatomic. There are no lumbar spine f ractures. There is moderate multilevel disc space narrowing and endplate osteophytosis and severe fac et arthrosis within lumbar spine. IMPRESSION: 1. No lumbar spine fractures. 2. 1 cm of anterolisthesis of L4 and L5 due to facet arthrosis which does not significantly change du ring flexion or extension. 3. Moderate multilevel degenerative disc disease and severe facet arthrosis within the lumbar spine. ACT 112: Negative or not required by law. Electronically signed by: Vineet Cervantes M.D. 10/16/2024 12:34 PM
--- NOTE | 2024-10-16 15:12 | Orthopedic Progress Note ---
Date of Service October 16, 2024 Subjective Patient seen and examined, she notes that she has had slight improvement in some of the numbness and tingling around her ankles and feet but overall similar to what she was before. She has been up with physical therapy yesterday mobilizing in the room and to the bathroom but not onto the hallway. Exam reveals no real change in lower extremities relative to active passive range of motion of the ankles and/or toes. Impression: Degenerative spondylolisthesis with stenosis L4-5 now 2 to 3 weeks out from development of symptomatology. I talked with the patient, she had a number of questions written down and I spent time to answer these for her. I related to her that I still think operative intervention will eventually need to be accomplished, but she had asked questions about going to rehab and giving this a try with follow-up in the office to discuss operative intervention. I related that certainly this is a reasonable option, certainly we can see how the patient does with therapy today in the next few days while they are working on rehab placement. I related the patient I will be in over the weekend for additional follow-up and discussion, she is in agreement with this plan. Review of Systems All systems reviewed & are unremarkable except as noted in HPI & below. Physical Exam . Results & Data Results & Data Laboratory Results . Diagnostic Findings . PG Care Time/CCT Total # of Minutes Spent Total Time Spent with Patient: Total time spent is greater than 50% in coordination of care (as documented) at patient's floor/unit and/or counseling patient: Coding Level of Care Code 84668 SUB INP/OBS CARE 08/08MIN
--- NOTE | 2024-10-16 17:47 | Hospitalist Progress Note ---
Date of Service October 16, 2024 Assessment & Plan (1) Low back pain potentially associated with radiculopathy: (2) Ambulatory dysfunction: (3) Left leg DVT: (4) Acute UTI: (5) HTN (hypertension): (6) HLD (hyperlipidemia): (7) Carotid artery stenosis: Plan 79 year old female with PMH significant for HTN, HLD, carotid artery stenosis, CKD III, depression, vitamin D deficiency, and stress incontinence who is admitted for intractable back pain. Acute Low back pain with radiculopathy L4-5 Annular Disc Bulge Ambulatory dysfunction Lumbar spine MRI revealed mild disc degeneration at L4-5 with annular disc bulge causing severe subarticular recess stenosis with impingement and a critical spinal canal stenosis with effacement of the thecal sac Pain control with scheduled tylenol tid, PRN tramadol, PRN morphine Ortho spine surgery consult: likely IV steroids and possible epidural injection PT consult: reduced tolerance to activities, ROM, strength OT consult: impaired ADL participation, reduced functional mobility, decreased activity tolerance, fear of falling Patient expressed desire to go to [facility] for additional support as daughter's home has many steps that she cannot currently do 10/14 Pain Management: outpatient SI joint injection improving overall continue Decadron 4mg IV BID continue PT/OT eval 10/15 continues to improve Decadron tapered to 4mg IV daily PT/OT eval will need acute Rehab Paroxysmal Atrial flutter developed in the evening of 10/14 evaluated by Cardiology Service, Dr. Tidwell: * Continue Eliquis. * Will not add AV rodriguez blocking agents/beta-sherine at this time due to intermittent bradycardia. * Risk factors for obstructive sleep apnea noted, consider nocturnal pulse ox trend and/or outpatient sleep medicine evaluation. * Outpatient 14-day ZIO monitor. * Results of echocardiogram reviewed with patient. * Routine outpatient vascular surgery follow-up of chronic, moderate asymptomatic right internal carotid artery stenosis * No further inpatient testing recommended at this time. LLE DVT Venous duplex revealed 1. Paired left popliteal veins with an acute thrombosed vein, likely the gastrocnemius. 2. A small complicated cyst in the right popliteal fossa measuring 2.1x 2.2 x .7cm. Apixaban 10mg bid x 7 days then 5mg bid thereafter Acute UTI UA +nitrites, leuk esterase, bacteria Patient asymptomatic but disclosed that she had a UTI 3 weeks ago and was prescribed Augmentin but did not complete the course due to diarrhea Urine culture: E coli Day #4/5 IV ceftriaxone 2g HTN Continue losartan Holding chlorthalidone monitor BP HLD Continue baby aspirin CKD III crea 1.2--> 1.1 Received 500mL NSS Holding chlorthalidone DVT Prophylaxis: on Eliquis Code Status: DNR/DNI PCP: Latrice Narvaez PA-C Disposition: will need acute rehab Admission and Anticipated Discharge Date Admission Date: October 12, 2024 Results & Data Results & Data Vital Signs (Past 12 Hours) Vital Signs Temp Pulse Pulse Resp BP Pulse Ox O2 Del Method 10/16/24 16:10 36.4 C L 59 L 16 134/55 L 94 Room Air 10/16/24 14:00 64 10/16/24 11:47 36.5 C 68 16 152/66 H 94 Room Air 10/16/24 07:33 36.6 C 65 16 157/72 H 96 Room Air 10/16/24 07:00 53 L
[2024-10-17 06:46] LABS: BUN Creatinine Ratio 34.7 (10-20); Calcium 9.3 mg/dl (8.6-10.3); Creatinine Clr Calc Pharmacy 49.7 ml/min; Potassium 4.2 mmol/L (3.5-5.1)
--- NOTE | 2024-10-17 10:36 | Orthopedic Progress Note ---
Date of Service October 17, 2024 Subjective Patient seen and examined, she notes still some continued symptomatology some achiness in the hips, she notes that usually cyclobenzaprine as a muscle relaxer assist with that. She still feels nonsecure ambulating without a walker, has been up with physical therapy to the bathroom. Motor exam the lower extremities reveals still appropriate strength for ankle dorsiflexion and EHL knee extension strength, plantarflexion slightly weaker in the left side in the 4+ range. Impression: Degenerative spondylolisthesis with stenosis L4-5. Plan: Today I talked with the patient, she is still interested [facility], but I did once again discussed with her that I think regardless of our treatment courses surgical intervention is going to be indicated if she does not begin to have significant improvement. Patient relates that she would like to hear what is determined relative to rehab today, we will continue to monitor progress. Review of Systems All systems reviewed & are unremarkable except as noted in HPI & below. Physical Exam . Results & Data Results & Data Laboratory Results . Diagnostic Findings . PG Care Time/CCT Total # of Minutes Spent Total Time Spent with Patient: Total time spent is greater than 50% in coordination of care (as documented) at patient's floor/unit and/or counseling patient: Coding Level of Care Code 70771 SUB INP/OBS CARE 2/35MIN
[2024-10-17] MEDS: traMADol HCL 50 MG TABLET PO PRN (11:27)
--- NOTE | 2024-10-17 14:03 | Hospitalist Progress Note ---
Date of Service October 17, 2024 Assessment & Plan (1) Low back pain potentially associated with radiculopathy: (2) Ambulatory dysfunction: (3) Left leg DVT: (4) Acute UTI: (5) HTN (hypertension): (6) HLD (hyperlipidemia): (7) Carotid artery stenosis: Plan 79 year old female with PMH significant for HTN, HLD, carotid artery stenosis, CKD III, depression, vitamin D deficiency, and stress incontinence who is admitted for intractable back pain. Acute low back pain with radiculopathy Ambulatory dysfunction Lumbar spine MRI revealed mild disc degeneration at L4-5 with annular disc bulge causing severe subarticular recess stenosis with impingement and a critical spinal canal stenosis with effacement of the thecal sac Pain control with scheduled tylenol tid and PRN tramadol PT consult: reduced tolerance to activities, ROM, strength OT consult: impaired ADL participation, reduced functional mobility, decreased activity tolerance, fear of falling Case management involved for SNF placement Ortho spine surgery consult: IV decadron daily, recommend surgical intervention if patient does not have significant improvement with rehab LLE DVT Venous duplex revealed 1. Paired left popliteal veins with an acute thrombosed vein, likely the gastrocnemius. 2. A small complicated cyst in the right popliteal fossa measuring 2.1x 2.2 x .7cm. Apixaban 10mg bid x 7 days then 5mg bid thereafter Acute UTI UA +nitrites, leuk esterase, bacteria Patient asymptomatic but disclosed that she had a UTI 3 weeks ago and was prescribed Augmentin but did not complete the course due to diarrhea Urine culture positive with E coli Ceftriaxone 5/5 day course completed HTN Continue losartan Holding chlorthalidone HLD Continue baby aspirin CKD III BUN 34 and creat 0.98 this am Holding chlorthalidone Stress incontinence Continue oxybutynin DVT Prophylaxis: on Eliquis Code Status: DNR/DNI PCP: Latrice Narvaez PA-C Disposition: Medically cleared for discharge. Awaiting SNF placement. Patient seen in collaboration with Dr Cruz. Please see addendum. I spent a total of 50 minutes coordinating, documenting and providing care for this patient excluding time spent in the performance of separately billed services or time spent by another provider/QHP. Admission and Anticipated Discharge Date Admission Date: October 12, 2024 Supervising Physician Co-Signing Physician Notes Attending Addendum: Case reviewed with the advanced practitioner. I have personally performed a history and physical examination on the patient. I have reviewed the advanced practitioner's documentation on the date of service referenced in note, and I agree with, and take responsibility for the plan of care. please refer to her notes for full details patient seen and examined, records reviewed by myself as well diagnoses and plan of care as per advanced practitioner's notes I spent a total of 35 minutes coordinating, documenting, and providing care for this patient, excluding time spent in the performance of separately billed services or time spent by another provider/QHP. Sam Cruz MD Subjective Patient seen sitting in the chair Reports she is feeling the same, no better or worse Still reports numbness in bilateral feet Having hip spasm pain not relieved by tylenol Denies fevers, chills, chest pain, SOB, abdominal pain, N/V/D Review of Systems Review of Systems: All systems reviewed & are unremarkable except as noted in HPI & below Physical Exam Physical Exam: VITALS: Reviewed and VSS. GEN: Healthy appearing, well-developed, female, NAD. PSYCH: Good Judgment. AOx3. Normal memory, mood, and affect. HEENT: Head NC/AT. Sclera white and conjunctiva pink. Nares without rhinorrhea. Nasal and oral mucosa pink. NECK: Supple, with no masses. CV: RRR, no m/r/g. LUNGS: CTAB, no w/r/c. ABD: Soft, NT/ND, NBS, no masses or organomegaly. SKIN: Warm, well perfused. No skin rashes or abnormal lesions. MSK: Congenital deformity of LUE. EXT: No clubbing, cyanosis, or edema. Sensation intact in bilateral LE NEURO: Normal muscle strength and tone. No focal deficits. Results & Data Results & Data Vital Signs (Past 12 Hours) Vital Signs Temp Pulse Pulse Resp BP Pulse Ox O2 Del Method 10/17/24 11:45 36.6 C 72 18 162/66 H 91 Room Air 10/17/24 07:38 36.7 C 62 16 149/65 H 95 Room Air 10/17/24 07:00 72 10/17/24 03:55 36.4 C L 56 L 18 146/73 H 95 Room Air Laboratory Results [facility] 10/17/24 05:57 Sodium 129 L Potassium 4.2 Chloride 95 L Carbon Dioxide 30 BUN 34 H Creatinine 0.98 Glucose 78 Calcium 9.3 I have independently reviewed and interpreted patient's labs including BMP. Medications Administered Current Inpatient Medications Acetaminophen (Acetaminophen 500 Mg Tab) 1,000 mg PO TID [facility] Stop: 11/11/24 22:16 Last Admin: 10/17/24 13:33 Dose: 1,000 mg Apixaban (Apixaban 5 Mg Tablet) 10 mg PO BID [facility] Stop: 10/20/24 21:01 Last Admin: 10/17/24 08:22 Dose: 10 mg Apixaban (Apixaban 5 Mg Tablet) 5 mg PO BID [facility] Stop: 11/20/24 08:59 Aspirin (Aspirin 81 Mg Ectab) 81 mg PO DAILY [facility] Stop: 11/12/24 08:59 Last Admin: 10/17/24 08:22 Dose: 81 mg Calcium Carbonate (Calcium Carbonate 1250mg Tab) 1 tab PO DAILY [facility] Stop: 11/12/24 08:59 Last Admin: 10/17/24 08:22 Dose: 1 tab Cyanocobalamin (Cyanocobalamin (B-12) 500 Mcg Tablet) 500 mcg PO DAILY [facility] Stop: 11/12/24 08:59 Last Admin: 10/17/24 08:21 Dose: 500 mcg Diclofenac Sodium (Diclofenac Sod 1% Gel 100 Gm Tube) 4 gm EXT Q12 [facility]; Protocol Stop: 11/13/24 08:59 Last Admin: 10/17/24 08:23 Dose: 4 gm Docusate Sodium (Docusate Sodium 100 Mg Cap) 100 mg PO BID PRN PRN Reason: constipation Stop: 11/13/24 20:59 Last Admin: 10/14/24 17:32 Dose: 100 mg Famotidine (Famotidine 20 Mg Tab) 20 mg PO DAILY PRN PRN Reason: Heartburn Stop: 11/11/24 22:16 Ceftriaxone Sodium (Rocephin) 2,000 mg in 50 mls @ 100 mls/hr IV Q24H [facility] Stop: 10/17/24 22:59 Last Infusion: 10/16/24 23:58 Dose: Infused Dexamethasone 4 mg/ Syringe 1 mls @ 1 mls/min IV DAILY [facility] Stop: 11/14/24 08:59 Last Admin: 10/17/24 08:21 Dose: 1 mls/min Lorazepam (Lorazepam 1 Mg Tab) 1 mg PO BID PRN PRN Reason: Anxiety/Stress Stop: 11/11/24 22:16 Losartan Potassium (Losartan Potassium 50 Mg Tab) 50 mg PO DAILY [facility] Stop: 11/12/24 08:59 Last Admin: 10/17/24 08:22 Dose: 50 mg Melatonin (Melatonin 3 Mg Tab) 6 mg PO HS PRN PRN Reason: Sleep Stop: 11/11/24 22:16 Last Admin: 10/12/24 22:47 Dose: 6 mg Ondansetron HCl (Ondansetron Inj 2 Mg/Ml 2 Ml Vial) 4 mg IV Q6H PRN PRN Reason: Nausea Stop: 11/11/24 22:16 Oxybutynin Chloride (Oxybutynin Chloride 5 Mg Tab) 5 mg PO TID [facility] Stop: 11/11/24 22:16 Last Admin: 10/17/24 13:34 Dose: 5 mg Oxycodone HCl (Oxycodone Hcl Ir 5 Mg Tab (Immediate Release)) 5 mg PO Q4 PRN PRN Reason: Pain Stop: 10/27/24 21:19 Polyethylene Glycol (Polyethylene (Miralax) 17 Gm Pack) 17 gm PO DAILY PRN PRN Reason: Constipation Stop: 11/11/24 22:16 Tramadol HCl (Tramadol Hcl 50 Mg Tablet) 50 mg PO Q8 PRN PRN Reason: Pain Stop: 11/16/24 11:03 Last Admin: 10/17/24 11:27 Dose: 50 mg Vitamin D (Cholecalciferol 25 Mcg (1000 Units) Tab) 50 mcg PO DAILY [facility] Stop: 11/12/24 08:59 Last Admin: 10/17/24 08:22 Dose: 50 mcg
[2024-10-17] MEDS: SODIUM CHLORIDE 0.9% 500 ML IV SCH (16:01)
[2024-10-18 06:23] LABS: BUN Creatinine Ratio 35.3 (10-20); Creatinine Clr Calc Pharmacy 57.3 ml/min; Potassium 4.2 mmol/L (3.5-5.1)
--- NOTE | 2024-10-18 08:06 | Hospitalist Progress Note ---
Date of Service October 18, 2024 Assessment & Plan (1) Low back pain potentially associated with radiculopathy: (2) Ambulatory dysfunction: (3) Left leg DVT: (4) Acute UTI: (5) HTN (hypertension): (6) HLD (hyperlipidemia): (7) Carotid artery stenosis: Plan 79 year old female with PMH significant for HTN, HLD, carotid artery stenosis, CKD III, depression, vitamin D deficiency, and stress incontinence who is admitted for intractable back pain. Acute low back pain with radiculopathy Ambulatory dysfunction Lumbar spine MRI revealed mild disc degeneration at L4-5 with annular disc bulge causing severe subarticular recess stenosis with impingement and a critical spinal canal stenosis with effacement of the thecal sac Pain control with scheduled tylenol tid and PRN tramadol PT consult: reduced tolerance to activities, ROM, strength OT consult: impaired ADL participation, reduced functional mobility, decreased activity tolerance, fear of falling Ortho spine surgery consult: IV decadron daily, recommend surgical intervention if patient does not have significant improvement Patient has second opinion video call set up with [facility] spine surgery on 10/19 and has decided she is likely going to proceed with surgery (either with [facility] or [facility]) and does not want to go to rehab anymore LLE DVT Venous duplex revealed 1. Paired left popliteal veins with an acute thrombosed vein, likely the gastrocnemius. 2. A small complicated cyst in the right popliteal fossa measuring 2.1x 2.2 x .7cm. Apixaban 10mg bid x 7 days then 5mg bid thereafter Acute UTI UA +nitrites, leuk esterase, bacteria Patient asymptomatic but disclosed that she had a UTI 3 weeks ago and was prescribed Augmentin but did not complete the course due to diarrhea Urine culture positive with E coli Ceftriaxone 5/5 day course completed HTN Continue losartan Holding chlorthalidone HLD Continue baby aspirin CKD III BUN 30 and creat 0.85 this am Patient received 500mL NS on 10/17 due to Na 129 and Cl 95 10/18 Na is 132 and Cl 99 - encouraged patient to hydrate Stress incontinence Continue oxybutynin DVT Prophylaxis: on Eliquis Code Status: DNR/DNI PCP: Latrice Narvaez PA-C Disposition: Patient no longer wants to go to rehab and has decided she will likely proceed with spine surgery (either with [facility] or [facility]) Patient seen in collaboration with Dr Cruz. Please see addendum. I spent a total of 50 minutes coordinating, documenting and providing care for this patient excluding time spent in the performance of separately billed services or time spent by another provider/QHP. Admission and Anticipated Discharge Date Admission Date: October 12, 2024 Supervising Physician Co-Signing Physician Notes Attending Addendum: Case reviewed with the advanced practitioner. I have personally performed an interview and physical examination on the patient. I have reviewed the advanced practitioner's documentation on the date of service referenced in note, and I agree with, and take responsibility for the plan of care. please refer to her notes for full details patient seen and examined, records reviewed by myself as well diagnoses and plan of care as per advanced practitioner's notes I spent a total of 25 minutes coordinating, documenting, and providing care for this patient, excluding time spent in the performance of separately billed services or time spent by another provider/QHP. Sam Cruz MD Subjective Patient seen sitting up in bed Reports she is feeling the same, no better or worse Still reports numbness in bilateral feet Having hip spasm pain that is relieved by tramadol Denies fevers, chills, chest pain, SOB, abdominal pain, N/V/D Review of Systems Review of Systems: All systems reviewed & are unremarkable except as noted in HPI & below Physical Exam Physical Exam: VITALS: Reviewed and VSS. GEN: Healthy appearing, well-developed, female, NAD. PSYCH: Good Judgment. AOx3. Normal memory, mood, and affect. HEENT: Head NC/AT. Sclera white and conjunctiva pink. Nares without rhinorrhea. Nasal and oral mucosa pink. NECK: Supple, with no masses. CV: RRR, no m/r/g. LUNGS: CTAB, no w/r/c. ABD: Soft, NT/ND, NBS, no masses or organomegaly. SKIN: Warm, well perfused. No skin rashes or abnormal lesions. MSK: Congenital deformity of LUE. EXT: No clubbing, cyanosis, or edema. Sensation intact in bilateral LE NEURO: Normal muscle strength and tone. No focal deficits. Results & Data Results & Data Vital Signs (Past 12 Hours) Vital Signs Temp Pulse Pulse Resp BP Pulse Ox O2 Del Method 10/18/24 07:00 48 L 10/18/24 02:44 36.5 C 54 L 16 168/76 H 94 Room Air 10/17/24 22:27 36.4 C L 55 L 18 151/73 H 95 Room Air 10/17/24 21:58 56 L Laboratory Results BMP 10/18/24 05:46 Sodium 132 L Potassium 4.2 Chloride 99 Carbon Dioxide 29 BUN 30 H Creatinine 0.85 Glucose 83 Calcium 9.0 I have independently reviewed and interpreted patient's labs including BMP.. Medications Administered Current Inpatient Medications Acetaminophen (Acetaminophen 500 Mg Tab) 1,000 mg PO TID [facility] Stop: 11/11/24 22:16 Last Admin: 10/18/24 08:29 Dose: 1,000 mg Apixaban (Apixaban 5 Mg Tablet) 10 mg PO BID [facility] Stop: 10/20/24 21:01 Last Admin: 10/18/24 08:29 Dose: 10 mg Apixaban (Apixaban 5 Mg Tablet) 5 mg PO BID [facility] Stop: 11/20/24 08:59 Aspirin (Aspirin 81 Mg Ectab) 81 mg PO DAILY [facility] Stop: 11/12/24 08:59 Last Admin: 10/18/24 08:28 Dose: 81 mg Calcium Carbonate (Calcium Carbonate 1250mg Tab) 1 tab PO DAILY [facility] Stop: 11/12/24 08:59 Last Admin: 10/18/24 08:28 Dose: 1 tab Cyanocobalamin (Cyanocobalamin (B-12) 500 Mcg Tablet) 500 mcg PO DAILY [facility] Stop: 11/12/24 08:59 Last Admin: 10/18/24 08:29 Dose: 500 mcg Diclofenac Sodium (Diclofenac Sod 1% Gel 100 Gm Tube) 4 gm EXT Q12 [facility]; Protocol Stop: 11/13/24 08:59 Last Admin: 10/18/24 08:31 Dose: 4 gm Docusate Sodium (Docusate Sodium 100 Mg Cap) 100 mg PO BID PRN PRN Reason: constipation Stop: 11/13/24 20:59 Last Admin: 10/14/24 17:32 Dose: 100 mg Famotidine (Famotidine 20 Mg Tab) 20 mg PO DAILY PRN PRN Reason: Heartburn Stop: 11/11/24 22:16 Dexamethasone 4 mg/ Syringe 1 mls @ 1 mls/min IV DAILY [facility] Stop: 11/14/24 08:59 Last Admin: 10/18/24 08:31 Dose: 1 mls/min Lorazepam (Lorazepam 1 Mg Tab) 1 mg PO BID PRN PRN Reason: Anxiety/Stress Stop: 11/11/24 22:16 Losartan Potassium (Losartan Potassium 50 Mg Tab) 50 mg PO DAILY [facility] Stop: 11/12/24 08:59 Last Admin: 10/18/24 08:29 Dose: 50 mg Melatonin (Melatonin 3 Mg Tab) 6 mg PO HS PRN PRN Reason: Sleep Stop: 11/11/24 22:16 Last Admin: 10/12/24 22:47 Dose: 6 mg Ondansetron HCl (Ondansetron Inj 2 Mg/Ml 2 Ml Vial) 4 mg IV Q6H PRN PRN Reason: Nausea Stop: 11/11/24 22:16 Oxybutynin Chloride (Oxybutynin Chloride 5 Mg Tab) 5 mg PO TID [facility] Stop: 11/11/24 22:16 Last Admin: 10/18/24 08:29 Dose: 5 mg Polyethylene Glycol (Polyethylene (Miralax) 17 Gm Pack) 17 gm PO DAILY PRN PRN Reason: Constipation Stop: 11/11/24 22:16 Tramadol HCl (Tramadol Hcl 50 Mg Tablet) 50 mg PO Q8 PRN PRN Reason: Pain Stop: 11/16/24 11:03 Last Admin: 10/18/24 08:29 Dose: 50 mg Vitamin D (Cholecalciferol 25 Mcg (1000 Units) Tab) 50 mcg PO DAILY [facility] Stop: 11/12/24 08:59 Last Admin: 10/18/24 08:28 Dose: 50 mcg
--- NOTE | 2024-10-19 09:04 | Orthopedic Progress Note ---
Date of Service October 19, 2024 Subjective Patient seen and examined, she notes no significant improvement over the weekend with medications and physical therapy. She has been having some right hip pain, and some limited spasms. Exam today reveals the patient to have what I felt was 4+ to 5/5 ankle dorsiflexion right slightly stronger than the left, but EHL seems slightly weaker in the 4 out of 5 range than on previous exams over the past 2 to 3 days. Impression: Degenerative spondylolisthesis with stenosis at L4-5. Plan: Today I did talk with the patient, the patient expressed to me that her desire to give time and physical therapy and rehab a chance to improve her symptoms she has become more skeptical of, I related to her that as stated previously I feel surgery will be the only solution to this problem that she needs a decompression fusion at the L4-5 level. She related that she will discuss this with her family today as I related to her I would prefer decision on moving ahead with either conservative measures which I think will be doubtful of improving her symptoms long-term versus the operative procedure discussed previously. I related the patient that I have no issues if she would like to obtain a second opinion, but I think all decisions should be accomplished today in her best interest, she is in agreement with this plan I will wait to hear from her later today. Review of Systems All systems reviewed & are unremarkable except as noted in HPI & below. Physical Exam . Results & Data Results & Data Laboratory Results . Diagnostic Findings . PG Care Time/CCT Total # of Minutes Spent Total Time Spent with Patient: Total time spent is greater than 50% in coordination of care (as documented) at patient's floor/unit and/or counseling patient: Coding Level of Care Code 36793 SUB INP/OBS CARE 2/35MIN
[2024-10-19] MEDS: predniSONE 20 MG TAB PO SCH (09:19)
[2024-10-19 10:49] LABS: Calcium 9.5 mg/dl (8.6-10.3); Potassium 4.4 mmol/L (3.5-5.1)
[2024-10-19 10:55] LABS: BUN Creatinine Ratio 29.6 (10-20); Creatinine Clr Calc Pharmacy 45.3 ml/min
--- NOTE | 2024-10-19 16:06 | Hospitalist Progress Note ---
Date of Service October 19, 2024 Assessment & Plan (1) Low back pain potentially associated with radiculopathy: (2) Ambulatory dysfunction: (3) Left leg DVT: (4) Acute UTI: (5) HTN (hypertension): (6) HLD (hyperlipidemia): (7) Carotid artery stenosis: Plan Plan 79 year old female with PMH significant for HTN, HLD, carotid artery stenosis, CKD III, depression, vitamin D deficiency, and stress incontinence who is admitted for intractable back pain. Acute low back pain with radiculopathy Ambulatory dysfunction Lumbar spine MRI revealed mild disc degeneration at L4-5 with annular disc bulge causing severe subarticular recess stenosis with impingement and a critical spinal canal stenosis with effacement of the thecal sac Pain control with scheduled tylenol tid and PRN tramadol PT consult: reduced tolerance to activities, ROM, strength OT consult: impaired ADL participation, reduced functional mobility, decreased activity tolerance, fear of falling Ortho spine surgery consult: IV decadron daily, recommend surgical intervention if patient does not have significant improvement 10/19 Patient for L4/L5 decompression fusion procedure tomorrow by Dr. Arnold Patient is moderate risk for cardiopulmonary complications perioperatively in light of, age group, however no medical contraindication to proceed with above procedure tomorrow Which would greatly help patient's mobility, and prevent further complications of being sedentary including thromboembolism, pneumonia, skin ulcers, etc. explained to patient and daughter, they are understanding and agreeable to proceed with surgery tomorrow management of anticoagulation for treatment of acute DVT per below recommend to monitor patient in [facility] telemetry at least 24 hours after surgery, then transferred to [facility] for further postop care LLE DVT Venous duplex revealed 1. Paired left popliteal veins with an acute thrombosed vein, likely the gastrocnemius. 2. A small complicated cyst in the right popliteal fossa measuring 2.1x 2.2 x .7cm. Apixaban 10mg bid x 7 days then 5mg bid thereafter 10/19 Eliquis held this morning Will bridge with heparin drip this afternoon, to be stopped at 1 AM in preparation for the procedure tomorrow Discussed with Dr. Arnold Acute UTI UA +nitrites, leuk esterase, bacteria Patient asymptomatic but disclosed that she had a UTI 3 weeks ago and was prescribed Augmentin but did not complete the course due to diarrhea Urine culture positive with E coli Ceftriaxone 5/5 day course completed HTN Continue losartan Holding chlorthalidone HLD hold baby aspirin in light of surgery CKD III BUN 30 and creat 0.85 this am Patient received 500mL NS on 10/17 due to Na 129 and Cl 95 10/18 Na is 132 and Cl 99 - encouraged patient to hydrate 10/19 Na 131 today monitor Na Stress incontinence Continue oxybutynin DVT Prophylaxis: Eliquis on hold, heparin drip Code Status: DNR/DNI PCP: Latrice Narvaez PA-C Disposition: may need Acute Rehab/SNF Admission and Anticipated Discharge Date Admission Date: October 12, 2024 Subjective Seen resting in bed, sitting up, in good spirits Comfortable Patient's daughter Nicole at the bedside visiting Patient still having significant back and hip pain with ambulation No shortness of breath, palpitations, chest pain, dizziness No other new symptoms Review of Systems Review of Systems: all noted and negative except for above Physical Exam Physical Exam: General- oriented x 3, not in distress, speaks in sentences with no effort or accessory muscle use Eyes- anicteric Neck- no JVD Lungs- clear breath sounds bilaterally Heart- normal rate, regular rhythm; no murmurs Abdomen- normal bowel sounds, nondistended, soft, nontender Extremities- no pretibial edema, no calf tenderness Neuro- alert, oriented x 3; no gross focal neurologic deficits Skin- warm & dry Results & Data Results & Data Vital Signs (Past 12 Hours) Vital Signs Temp Pulse Pulse Resp BP Pulse Ox O2 Del Method 10/19/24 15:11 36.7 C 59 L 20 131/69 92 Room Air 10/19/24 14:00 59 L 10/19/24 07:58 36.4 C L 50 L 20 137/74 94 Room Air 10/19/24 07:50 Room Air 10/19/24 07:00 49 L all noted and reviewed including below
[2024-10-19] MEDS: HEPARIN 25000 UNIT/500 ML D5W 25,000 UNITS/500 ML BAG IV SCH (16:31)
[2024-10-19] MEDS: Heparin IV Adult Wt-Based Standard *NO* INITIAL Bolus Protocol IV STA (17:54)
[2024-10-20] MEDS ORDERED: LIDOCAINE 2% 2 ML VIAL/AMP(20MG/ML) INFIL ONE (06:40)
[2024-10-20] MEDS ORDERED: DEXAMETHASONE SOD INJ 4 MG/ML VIAL ONE (06:40)
[2024-10-20] MEDS ORDERED: PROPOFOL IV EMULSION 10 MG/ML 20 ML VIAL IV ONE ×2 (06:40→10:44)
[2024-10-20] MEDS ORDERED: ROCURONIUM BROMIDE 10 MG/ML 5 ML VIAL IV ONE ×3 (06:40→10:33)
[2024-10-20] MEDS ORDERED: ONDANSETRON INJ 2 MG/ML 2 ML VIAL ONE (06:40)
[2024-10-20] MEDS ORDERED: fentaNYL citrate PF 100 MCG/2 ML VIAL ONE ×2 (06:40→08:48)
[2024-10-20] MEDS ORDERED: MIDAZOLAM HCL 1 MG/ML 2ML VIAL ONE (06:41)
[2024-10-20] MEDS ORDERED: PROPOFOL IV EMULSION 10 MG/ML 100 ML VIAL IV ONE ×3 (06:45→11:20)
[2024-10-20] MEDS ORDERED: REMIFENTANIL HCL 1 MG VIAL IV ONE (06:51)
[2024-10-20] MEDS ORDERED: ACETAMINOPHEN 1000 MG/100 ML IV IV ONE (06:52)
[2024-10-20 06:53] LABS: Calcium 9.5 mg/dl (8.6-10.3); Potassium 4.2 mmol/L (3.5-5.1)
[2024-10-20 06:58] LABS: BUN Creatinine Ratio 37.8 (10-20); Creatinine Clr Calc Pharmacy 49.4 ml/min
--- NOTE | 2024-10-20 07:15 | Anesthesiology Consultation ---
Date of Service October 20, 2024 Assessment & Plan (1) Encounter for pre-operative examination: Chart Review Chart Review: Acceptable Risk for Surgery History Surgery Operation Date: 10/20/24 07:30 Proposed Procedures p L4-L5 Decompression and Posterior Instrumentation Fusion, Spinal Cord Monitoring - Abhijeet Arnold MD Height/Weight Height: 5 ft 1 in Weight: 99.155 kg Allergies Allergy/AdvReac Type Severity Reaction Status Date / Time amoxicillin [From Augmentin] Allergy Intermediate Diarrhea Unverified 10/12/24 17:43 clavulanic acid Allergy Intermediate Diarrhea Unverified 10/12/24 17:43 [From Augmentin] Sulfa (Sulfonamide Allergy Intermediate Agitated Unverified 10/12/24 17:44 Antibiotics) simvastatin AdvReac Intermediate lichen Verified 10/12/24 17:43 planus rash when dose was increased Medications Home Medications Medication Instructions Recorded Confirmed Last Taken aspirin 81 mg chewable tablet 81 mg PO DAILY #0 tabs 05/08/12 10/12/24 10/12/24 cholecalciferol (vitamin D3) 50 50 mcg PO DAILY #0 caps 05/08/12 10/12/24 10/12/24 mcg (2,000 unit) tablet (Vitamin D3) clobetasol 0.05 % topical cream 1 applic topical BID PRN reaction 05/08/12 10/12/24 Unknown ##0 fenofibrate micronized 200 mg 200 mg PO DAILY #0 caps 05/08/12 10/12/24 10/12/24 capsule oxybutynin chloride 5 mg tablet 5 mg PO TID #0 tabs 05/08/12 10/12/24 Unknown calcium carbonate (Calcium 600) 600 mg PO DAILY 10/12/24 10/12/24 10/12/24 chlorthalidone 25 mg tablet 25 mg PO DAILY 10/12/24 10/12/24 10/12/24 cyanocobalamin (vitamin B-12) 500 500 mcg PO DAILY 10/12/24 10/12/24 10/12/24 mcg tablet (Vitamin B-12) lorazepam 1 mg tablet 1 mg PO BID PRN Anxiety/Stress 10/12/24 10/12/24 Unknown losartan 50 mg tablet 50 mg PO DAILY 10/12/24 10/12/24 10/12/24 prednisone 10 mg tablets in a dose 10 mg PO DIRECTED 0310/12/24 10/12/24 pack vitamin E 268 mg (400 unit) capsule 268 mg PO DAILY 10/12/24 10/12/24 10/12/24 Active Medications Generic Name Dose Route Start Last Admin Trade Name Giorgi PRN Reason Stop Dose Admin Acetaminophen 1,000 mg 10/12/24 22:17 10/19/24 22:17 Acetaminophen 500 Mg Tab PO 11/11/24 22:16 1,000 mg TID ANABEL Administration Aspirin 81 mg 10/13/24 09:00 10/19/24 09:19 Aspirin 81 Mg Ectab PO 11/12/24 08:59 81 mg DAILY ANABEL Administration Calcium Carbonate 1 tab 10/13/24 09:00 10/19/24 09:18 Calcium Carbonate 1250mg Tab PO 11/12/24 08:59 1 tab DAILY ANABEL Administration Cyanocobalamin 500 mcg 10/13/24 09:00 10/19/24 09:18 Cyanocobalamin (B-12) 500 Mcg Tablet PO 11/12/24 08:59 500 mcg DAILY ANABEL Administration Diclofenac Sodium 4 gm 10/14/24 09:00 10/19/24 20:21 Diclofenac Sod 1% Gel 100 Gm Tube EXT 11/13/24 08:59 4 gm Q12 ANABEL Administration Protocol Docusate Sodium 100 mg 10/14/24 14:46 10/14/24 17:32 Docusate Sodium 100 Mg Cap PO 11/13/24 20:59 100 mg BID PRN Administration constipation Losartan Potassium 50 mg 10/13/24 09:00 10/19/24 09:18 Losartan Potassium 50 Mg Tab PO 11/12/24 08:59 50 mg DAILY ANABEL Administration Melatonin 6 mg 10/12/24 22:17 10/18/24 20:45 Melatonin 3 Mg Tab PO 11/11/24 22:16 6 mg HS PRN Administration Sleep Oxybutynin Chloride 5 mg 10/12/24 22:17 10/19/24 20:20 Oxybutynin Chloride 5 Mg Tab PO 11/11/24 22:16 Not Given TID ANABEL Prednisone 20 mg 10/19/24 09:00 10/19/24 09:19 Prednisone 20 Mg Tab PO 11/18/24 08:59 20 mg DAILY ANABEL Administration Tramadol HCl 50 mg 10/17/24 11:04 10/19/24 22:16 Tramadol Hcl 50 Mg Tablet PO 11/16/24 11:03 50 mg Q8 PRN Administration Pain Vitamin D 50 mcg 10/13/24 09:00 10/19/24 09:19 Cholecalciferol 25 Mcg (1000 Units) Tab PO 11/12/24 08:59 50 mcg DAILY ANABEL Administration NPO Date Last Intake of Fluids: 10/19/24 Time Last Intake of Fluids: 23:51 Date Last Intake of Solids: 10/19/24 Last Intake of Solids Comment: before midnight Past Medical History Medical History (Updated 10/20/24 @ 07:15 by Hugo Mccormack MD) Atrial flutter Thrombosis of left popliteal artery Spinal stenosis of lumbar region Carotid artery stenosis HLD (hyperlipidemia) HTN (hypertension) Female urinary stress incontinence (Unknown) Cholelithiasis without obstruction (Unknown) Past Surgical History Surgical History No significant past surgical history Social History Smoking Status: Former smoker Smoking cigarettes per day: 2 Smoking End Date: 12 1/2 years ago Hx Alcohol Use: No Hx Substance Use: No substance use type: does not use Physical Exam Vital Signs Last Vital Signs Temp 36.5 C 10/20/24 03:10 Pulse 50 L 10/20/24 07:08 Resp 16 10/20/24 03:10 BP 173/71 H 10/20/24 03:10 Pulse Ox 93 10/20/24 03:10 O2 Del Method Room Air 10/20/24 03:10 Testing Laboratory Results 10/15/24 05:21 10/20/24 06:07 PT 11.0 Seconds (9.0-12.0) 10/13/24 21:13 INR 1.0 (0.9-1.1) 10/13/24 21:13 APTT 24 Seconds (21-31) 10/13/24 21:13 Hemoglobin A1c 5.8 % (4.5-5.6) H 10/15/24 05:21 Urine Color Yellow 10/12/24 17:06 Urine Appearance Clear (Clear) 10/12/24 17:06 Urine pH 6.0 (4.5-7.5) 10/12/24 17:06 Ur Specific [place] 1.009 (1.000-1.030) 10/12/24 17:06 Urine Protein Negative (Negative) 10/12/24 17:06 Urine Glucose (UA) Negative (Negative) 10/12/24 17:06 Urine Ketones Negative (Negative) 10/12/24 17:06 Urine Nitrite Positive (Negative) A 10/12/24 17:06 Ur Leukocyte Esterase 3+ (Negative) H 10/12/24 17:06 Urine WBC (Auto) 21-50 /hpf (0-5) H 10/12/24 17:06 Urine RBC (Auto) 0-2 /hpf (0-2) 10/12/24 17:06 U Hyaline Cast (Auto) 0-2 /lpf (0-2) 10/12/24 17:06 U Epithel Cells (Auto) 0-2 /hpf (0-2) 10/12/24 17:06 Urine Bacteria (Auto) 4+ (None Seen) H 10/12/24 17:06 10/12/24 17:06 Urine Culture - Final Urine,Straight Cath Escherichia coli Electrocardiogram Date: 10/15/24 Findings: + NSR @ (82) and + NSST changes Echocardiogram Date: 10/15/24 EF: 65-70% LV Function: normal Valvular Disease: + no significant valvular disease
--- NOTE | 2024-10-20 07:15 | History & Physical Bridge Note ---
Date of Service October 20, 2024 L4-5 decompression, fusion, instrumentation History & Physical Bridge Note I have examined the patient, reviewed the History & Physical and in the interval since the performance of the History & Physical I have noted the following changes of clinical significance: no changes noted
[2024-10-20] MEDS: LACTATED RINGER'S 1,000 ML IV SCH (07:29)
[2024-10-20] MEDS ORDERED: ATROPINE SULFATE 0.1 MG/ML 10ML SYR IV PRN (07:31)
[2024-10-20] MEDS ORDERED: HYDROmorphone INJ 1 MG/ML SYRINGE IV PRN (07:31)
[2024-10-20] MEDS ORDERED: PROMETHAZINE HCL 6.25 MG in SODIUM CHLORIDE 0.9% 50 ML IV PRN (07:31)
[2024-10-20] MEDS ORDERED: LABETALOL HCL IV 5 MG/ML 20ML IV PRN (07:31)
[2024-10-20] MEDS ORDERED: ONDANSETRON INJ 2 MG/ML 2 ML VIAL IV PRN ×2 (07:31→13:08)
[2024-10-20] MEDS: ceFAZolin 2000MG 2,000 MG/15 ML SYR IV ONE ×2 (07:42→12:42)
[2024-10-20] MEDS ORDERED: SUCCINYLCHOLINE CHLORIDE 20 MG/ML 10 ML VIAL IV ONE (07:54)
[2024-10-20] MEDS ORDERED: HYDROCORTISONE SOD SUCCINATE 100 MG/2 ML VIAL ONE (07:54)
[2024-10-20] MEDS ORDERED: GLYCOPYRROLATE 0.2 MG/ML VIAL ONE (08:26)
[2024-10-20] MEDS ORDERED: PHENYLEPHRINE 100MCG/ML 5ML SYR ONE (08:59)
[2024-10-20] MEDS: GELATIN SPONGE 12-7MM ONE (10:44)
[2024-10-20] MEDS: BUPIVACAINE/EPINEPHRINE 0.5% MPF 1:200,000 30 ML VIAL ONE (10:44)
[2024-10-20] MEDS: GENTAMICIN SULFATE 40 MG/ML 2 ML VIAL ONE (10:44)
[2024-10-20] MEDS: THROMBIN 5000 UNITS KIT ONE (10:44)
[2024-10-20] MEDS: VANCOMYCIN HCL 1000MG/20ML VIAL ONE ×2 (10:44→10:53)
--- NOTE | 2024-10-20 10:45 | Hospitalist Progress Note ---
Date of Service October 20, 2024 Assessment & Plan (1) Low back pain potentially associated with radiculopathy: (2) Ambulatory dysfunction: (3) Left leg DVT: (4) Acute UTI: (5) HTN (hypertension): (6) HLD (hyperlipidemia): (7) Carotid artery stenosis: Plan Plan 79 year old female with PMH significant for HTN, HLD, carotid artery stenosis, CKD III, depression, vitamin D deficiency, and stress incontinence who is admitted for intractable back pain. Acute low back pain with radiculopathy Ambulatory dysfunction Lumbar spine MRI revealed mild disc degeneration at L4-5 with annular disc bulge causing severe subarticular recess stenosis with impingement and a critical spinal canal stenosis with effacement of the thecal sac Pain control with scheduled tylenol tid and PRN tramadol PT consult: reduced tolerance to activities, ROM, strength OT consult: impaired ADL participation, reduced functional mobility, decreased activity tolerance, fear of falling Ortho spine surgery consult: IV decadron daily, recommend surgical intervention if patient does not have significant improvement 10/19 Patient for L4/L5 decompression fusion procedure tomorrow by Dr. Arnold Patient is moderate risk for cardiopulmonary complications perioperatively in light of, age group, however no medical contraindication to proceed with above procedure tomorrow Which would greatly help patient's mobility, and prevent further complications of being sedentary including thromboembolism, pneumonia, skin ulcers, etc. explained to patient and daughter, they are understanding and agreeable to proceed with surgery tomorrow management of anticoagulation for treatment of acute DVT per below recommend to monitor patient in [facility] telemetry at least 24 hours after surgery, then transferred to [facility] for further postop care 10/20 status post L4-L5 decompression fusion Stable overall Needs to be restarted on Eliquis twice daily for acute lower extremity DVT once hemostasis stable per orthopedic spine service Pain control PT OT eval LLE DVT Venous duplex revealed 1. Paired left popliteal veins with an acute thrombosed vein, likely the gastrocnemius. 2. A small complicated cyst in the right popliteal fossa measuring 2.1x 2.2 x .7cm. Apixaban 10mg bid x 7 days then 5mg bid thereafter 10/19 Eliquis held this morning Will bridge with heparin drip this afternoon, to be stopped at 1 AM in preparation for the procedure tomorrow Discussed with Dr. Arnold 10/20 Needs to be restarted on Eliquis twice daily for acute lower extremity DVT once hemostasis stable per orthopedic spine service Risk factor for DVT includes not ambulating as frequently due to back pain Will need at least 3 months of anticoagulation, refer to nursing service director as an outpatient Acute UTI UA +nitrites, leuk esterase, bacteria Patient asymptomatic but disclosed that she had a UTI 3 weeks ago and was prescribed Augmentin but did not complete the course due to diarrhea Urine culture positive with E coli Ceftriaxone 5/5 day course completed HTN Continue losartan Holding chlorthalidone HLD hold baby aspirin in light of surgery CKD III BUN 30 and creat 0.85 this am Patient received 500mL NS on 10/17 due to Na 129 and Cl 95 10/18 Na is 132 and Cl 99 - encouraged patient to hydrate 10/20 Na 135 monitor Stress incontinence Continue oxybutynin DVT Prophylaxis: Eliquis on hold in light of Sx Code Status: DNR/DNI PCP: Latrice Narvaez PA-C Disposition: may need Acute Rehab/SNF PT/OT eval plan of care discussed with patient in detail and at length all questions answered she is understanding, agreeable, comfortable with the plan of care Admission and Anticipated Discharge Date Admission Date: October 12, 2024 Subjective patient status post L4-L5 decompression/fusion today Seen resting in bed, sleeping but easily awakened On 2 L of O2 by nasal cannula States she feels fine overall, just tired Denies shortness of breath, chest pain, palpitations, dizziness Having some mild discomfort at the surgical site, lower back No other new symptom Review of Systems Review of Systems: all noted and negative except for above Physical Exam Physical Exam: General- oriented x 3, not in distress, speaks in sentences with no effort or accessory muscle use Eyes- anicteric Neck- no JVD Lungs- clear breath sounds bilaterally, no rales/wheezes Heart- normal rate, regular rhythm; no murmurs Abdomen- normal bowel sounds, nondistended, soft, nontender Extremities- no pretibial edema, no calf tenderness Neuro- alert, oriented x 3; no gross focal neurologic deficits Skin- warm & dry Results & Data Results & Data Vital Signs (Past 12 Hours) Vital Signs Temp Pulse Pulse Resp BP BP Pulse Ox 10/20/24 07:19 37 C 76 20 220/79 H 93 10/20/24 07:08 50 L 10/20/24 03:10 36.5 C 62 16 173/71 H 93 10/19/24 22:59 36.5 C 61 16 144/74 H 91 O2 Del Method 10/20/24 07:19 Room Air 10/20/24 07:08 10/20/24 03:10 Room Air 10/19/24 22:59 Room Air all noted and reviewed including below
[2024-10-20] MEDS ORDERED: HYDROmorphone INJ 2 MG/ML SYR/VIAL ONE (11:49)
[2024-10-20] MEDS ORDERED: ceFAZolin 330 MG/ML 1 GM VIAL ONE (12:31)
[2024-10-20] MEDS ORDERED: SUGAMMADEX SODIUM 200 MG/2 ML VIAL IV ONE (12:35)
[2024-10-20] MEDS: FLOSEAL HEMOSTATIC MATRIX 10ML TOP ONE (12:50)
--- NOTE | 2024-10-20 12:51 | Post Operative Brief Note ---
PG Immediate Post Op with CF Date of Surgery October 20, 2024 Pre & Post Diagnosis Operation Date: 10/20/24 07:30 Pre-Op Diagnosis: Degenerative spondylolisthesis with stenosis at L4-5 Post-Op Diagnosis: Degenerative spondylolisthesis with stenosis at L4-5 I identified the patient and participated in the time-out.: Yes Procedure Operation Date: 10/20/24 07:30 Actual Procedures p L4-L5 Decompression and Posterior Instrumentation Fusion, Spinal Cord Monitoring(Not Applicable) - Abhijeet Arnold MD Surgeon Abhijeet Arnold MD Outside Machinist Supervisor none Estimated Blood Loss 100 Findings Consistent with Post-Op Diagnosis Specimens Specimen Description: none per surgeon [place] Catheter
[2024-10-20] MEDS ORDERED: HYDROmorphone INJ 0.5 MG/0.5 ML SYR IV PRN (13:08)
[2024-10-20] MEDS ORDERED: diphenhydrAMINE Capsule 25 MG CAP PO PRN (13:08)
[2024-10-20] MEDS ORDERED: MAGNESIUM HYDROXIDE SUSP 30 ML UDC PO PRN (13:08)
[2024-10-20] MEDS ORDERED: ACETAMINOPHEN 500 MG TAB PO PRN (13:08)
[2024-10-20] MEDS ORDERED: DO NOT ADMINISTER FLU VACCINE PRN (13:08)
[2024-10-20] MEDS ORDERED: ONDANSETRON 4 MG OD TAB PO PRN (13:08)
[2024-10-20] MEDS ORDERED: CYCLOBENZAPRINE HCL 10 MG TAB PO PRN (13:08)
[2024-10-20] MEDS ORDERED: FAMOTIDINE 20 MG TAB PO PRN (13:08)
[2024-10-20] MEDS ORDERED: bisacodyL 10 MG SUPP PR PRN (13:08)
[2024-10-20] MEDS ORDERED: ALUMINUM/MAGNESIUM SUSP 30 ML UDC PO PRN (13:08)
[2024-10-20] MEDS ORDERED: METOCLOPRAMIDE HCL INJ 5 MG/ML 2 ML VIAL IV PRN (13:08)
[2024-10-20] MEDS ORDERED: LORazepam 2 MG/1 ML VIAL IV PRN (13:08)
[2024-10-20] MEDS ORDERED: ACETAMINOPHEN 1,000 MG/100 ML VIAL IV PRN (13:08)
[2024-10-20] MEDS ORDERED: LORazepam 0.5 MG TAB PO PRN (13:08)
[2024-10-20] MEDS ORDERED: DO NOT ADMINISTER PNEUMOCOCCAL VACCINE PRN (13:08)
[2024-10-20] MEDS ORDERED: SOD PHOSPHATE/SOD BIPHOSPHATE ENEMA 132 ML BTL PR PRN (13:08)
[2024-10-20] MEDS ORDERED: hydrOXYzine HCl 25 MG TAB PO PRN (13:08)
[2024-10-20] MEDS ORDERED: PROMETHAZINE 12.5 MG/50.5 ML BAG IV PRN (13:08)
[2024-10-20] MEDS ORDERED: NALOXONE HCL 0.4 MG/1 ML VIAL/CARP IV PRN (13:08)
--- NOTE | 2024-10-20 14:11 | Fluoroscopy Report ---
[place] lumbar spine 2-3V CLINICAL HISTORY: L4-L5 decompresion/fusion COMPARISON STUDY: 10/16/2024 FLUOROSCOPY TIME: 42 seconds FLUOROSCOPY IMAGES: 5 EXPOSURE DOSE: 44 mGy FINDINGS: Fluoroscopy was provided for lower lumbar decompression and fusion. IMPRESSION: Intraoperative fluoroscopy. ACT 112: Negative or not required by law. Electronically signed by: Kuldeep Valdes M.D. 10/20/2024 2:10 PM
--- NOTE | 2024-10-20 14:19 | Anesthesiology Progress Note ---
Date of Service October 20, 2024 Anesthesia Post Procedure Vital Signs Vital Signs: Temp Pulse Pulse Pulse Resp BP BP 10/20/24 14:00 67 14 149/58 H 10/20/24 13:45 36.3 C L 83 14 142/53 H 10/20/24 13:35 82 14 166/51 H 10/20/24 13:25 66 16 160/49 H 10/20/24 13:15 69 18 165/66 H 10/20/24 13:07 36.4 C L 68 16 168/52 H 10/20/24 07:19 37 C 76 20 220/79 H 10/20/24 07:08 50 L 10/20/24 03:10 36.5 C 62 16 173/71 H 10/19/24 22:59 36.5 C 61 16 144/74 H 10/19/24 21:48 66 10/19/24 19:29 36.6 C 89 20 141/65 H 10/19/24 15:11 36.7 C 59 L 20 131/69 Pulse Ox O2 Del Method O2 Flow Rate 10/20/24 14:00 96 Nasal Cannula 2 10/20/24 13:45 97 Nasal Cannula 2 10/20/24 13:35 98 Oxymask 3 10/20/24 13:25 96 Oxymask 3 10/20/24 13:15 99 Oxymask 3 10/20/24 13:07 100 Oxymask 6 10/20/24 07:19 93 Room Air 10/20/24 07:08 10/20/24 03:10 93 Room Air 10/19/24 22:59 91 Room Air 10/19/24 21:48 10/19/24 19:29 91 Room Air 10/19/24 15:11 92 Room Air Pain Intensity Right Hip: Pain Intensity: 7 Transfer of Care Handoff Completed per policy Notes Mental Status: alert / awake / arousable Patient Amnestic to Procedure: Yes Nausea / Vomiting: adequately controlled Pain: adequately controlled Airway Patency, RR, SpO2: stable & adequate BP & HR: stable & adequate Hydration State: stable & adequate Anesthetic Complications: no major complications apparent and Pt Satisfied with anesthetic care
[2024-10-20 16:36] LABS: BUN Creatinine Ratio 34.3 (10-20); Calcium 8.8 mg/dl (8.6-10.3); Creatinine Clr Calc Pharmacy 44.8 ml/min; Potassium 5.2 mmol/L (3.5-5.1)
[2024-10-20] MEDS: DOCUSATE SODIUM/SENNA 50/8.6MG TAB PO SCH (21:34)
[2024-10-20] MEDS: ceFAZolin 2000MG 2,000 MG/15 ML SYR IV SCH (21:34)
[2024-10-21] MEDS: POLYETHYLENE (MIRALAX) 17 GM PACK PO SCH (05:57)
[2024-10-21 06:56] LABS: Basophils # (auto) 0.08 K/uL (0.00-0.20); Basophils % (auto) 0.5 %; Eosinophils # (auto) 0.46 K/uL (0.00-0.50); Eosinophils % (auto) 2.8 %; Hematocrit (blood only) 37.1 % (37.0-47.0); Hemoglobin 12.2 g/dl (12.0-16.0); Immature Granulocytes # (auto) 0.17 K/uL (0.01-0.20); Lymphocytes # (auto) 2.52 K/uL (1.20-3.40); Lymphocytes % (auto) 15.2 %; Mean Corpuscular Hemoglobin 28.4 pg (25.0-34.0); Mean Corpuscular Hgb Conc 32.9 g/dL (32.0-36.0); Mean Corpuscular Volume 86.3 fL (80.0-100.0); Mean Platelet Volume 9.8 fL (9.4-12.4); Monocytes # (auto) 1.37 K/uL (0.11-0.59); Monocytes % (auto) 8.3 %; Neutrophils % (auto) 72.2 %; Platelet Count 224 K/uL (130-400); RDW Coefficient of Variation 13.4 % (11.5-14.5)
[2024-10-21] MEDS ORDERED: APIXABAN 5 MG TABLET PO SCH (09:00)
--- NOTE | 2024-10-21 11:51 | Hospitalist Progress Note ---
Date of Service October 21, 2024 Assessment & Plan (1) Low back pain potentially associated with radiculopathy: (2) Ambulatory dysfunction: (3) Left leg DVT: (4) Acute UTI: (5) HTN (hypertension): (6) HLD (hyperlipidemia): (7) Carotid artery stenosis: Plan Plan 79 year old female with PMH significant for HTN, HLD, carotid artery stenosis, CKD III, depression, vitamin D deficiency, and stress incontinence who is admitted for intractable back pain. Acute low back pain with radiculopathy Ambulatory dysfunction Lumbar spine MRI revealed mild disc degeneration at L4-5 with annular disc bulge causing severe subarticular recess stenosis with impingement and a critical spinal canal stenosis with effacement of the thecal sac Pain control with scheduled tylenol tid and PRN tramadol PT consult: reduced tolerance to activities, ROM, strength OT consult: impaired ADL participation, reduced functional mobility, decreased activity tolerance, fear of falling Ortho spine surgery consult: IV decadron daily, recommend surgical intervention if patient does not have significant improvement 10/19 Patient for L4/L5 decompression fusion procedure tomorrow by Dr. Arnold Patient is moderate risk for cardiopulmonary complications perioperatively in light of, age group, however no medical contraindication to proceed with above procedure tomorrow Which would greatly help patient's mobility, and prevent further complications of being sedentary including thromboembolism, pneumonia, skin ulcers, etc. explained to patient and daughter, they are understanding and agreeable to proceed with surgery tomorrow management of anticoagulation for treatment of acute DVT per below recommend to monitor patient in MedSurg telemetry at least 24 hours after surgery 10/20 S/p L4-L5 decompression fusion, by Dr. Arnold Stable overall Needs to be restarted on Eliquis twice daily for acute lower extremity DVT once hemostasis stable per orthopedic spine service Pain control PT OT eval LLE DVT Venous duplex revealed 1. Paired left popliteal veins with an acute thrombosed vein, likely the gastrocnemius. 2. A small complicated cyst in the right popliteal fossa measuring 2.1x 2.2 x .7cm. Apixaban 10mg bid x 7 days then 5mg bid thereafter 10/19 Eliquis held this morning Will bridge with heparin drip this afternoon, to be stopped at 1 AM in preparation for the procedure tomorrow Discussed with Dr. 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 * Will not add AV rodriguez blocking agents/beta-sherine at this time due to intermittent bradycardia. * Risk factors for obstructive sleep apnea noted, consider nocturnal pulse ox trend and/or outpatient sleep medicine evaluation. * Outpatient 14-day ZIO monitor. * Results of echocardiogram reviewed with patient. * Routine outpatient vascular surgery follow-up of chronic, moderate asymptomatic right internal carotid artery stenosis * No further inpatient testing recommended at this time. Tachycardia 10/21/24 HR 120s while working w/ PT today will obtain ECG, will obtain electrolytes (no BMP this AM ordered) - cont. to monitor on tele HTN Continue losartan Holding chlorthalidone HLD hold baby aspirin in light of surgery CKD III BUN 30 and creat 0.85 this am Patient received 500mL NS on 10/17 due to Na 129 and Cl 95 10/18 Na is 132 and Cl 99 - encouraged patient to hydrate 10/20 Na 135 monitor Stress incontinence Continue oxybutynin DVT Prophylaxis: Eliquis on hold in light of Sx Code Status: DNR/DNI PCP: Latrice Narvaez PA-C Disposition: may need Acute Rehab/SNF PT/OT eval Admission and Anticipated Discharge Date Admission Date: October 12, 2024 Subjective Pt seen in follow up S/p lumbar spinal surgery - L4-L5 decompression/fusion 10/20 (yesterday) Contacted by RN, pt tachycardic when working with PT Seen resting in chair, in NAD, awake, alert, feeling well overall On 2 L of O2 by nasal cannula Denies shortness of breath, chest pain, palpitations, dizziness Having some mild discomfort at the surgical site, lower back No other new symptom Review of Systems Review of Systems: All systems reviewed & are unremarkable except as noted in Subjective Physical Exam Physical Exam: General- oriented x 3, not in distress, speaks in sentences with no effort or accessory muscle use Eyes- anicteric Neck- no JVD Lungs- clear breath sounds bilaterally, no rales/wheezes Heart- normal rate, regular rhythm; no murmurs Abdomen- normal bowel sounds, nondistended, soft, nontender Extremities- no pretibial edema, no calf tenderness Neuro- alert, oriented x 3; no gross focal neurologic deficits Skin- warm & dry Results & Data Results & Data Vital Signs (Past 12 Hours) Vital Signs Temp Pulse Pulse Resp BP BP Pulse Ox 10/21/24 11:41 36.8 C 121 H 18 143/67 H 92 10/21/24 10:15 10/21/24 07:38 37.1 C 61 18 144/73 H 96 10/21/24 07:03 67 10/21/24 02:20 36.4 C L 76 16 152/68 H 97 10/21/24 00:00 65 O2 Del Method O2 Flow Rate 10/21/24 11:41 Nasal Cannula 2 10/21/24 10:15 Room Air 10/21/24 07:38 Nasal Cannula 2 10/21/24 07:03 10/21/24 02:20 Nasal Cannula 2 10/21/24 00:00 Laboratory Results 10/21/24 10/20/24 Range/Units 06:37 15:57 WBC 16.60 H (4.8-10.8) K/ul RBC 4.30 (4.20-5.40) M/uL Hgb 12.2 (12.0-16.0) g/dl Hct 37.1 (37.0-47.0) % MCV 86.3 (80.0-100.0) fL MCH 28.4 (25.0-34.0) pg MCHC 32.9 (32.0-36.0) g/dL RDW Std Deviation 42.0 (36.4-46.3) fL RDW Coeff of [place] 13.4 (11.5-14.5) % Plt Count 224 (130-400) K/uL MPV 9.8 (9.4-12.4) fL Immature Gran % (Auto) 1.0 % Neut % (Auto) 72.2 % Lymph % (Auto) 15.2 % [place] % (Auto) 8.3 % Eos % (Auto) 2.8 % Baso % (Auto) 0.5 % Neut # (Auto) 12.00 H (1.40-6.50) K/uL Lymph # (Auto) 2.52 (1.20-3.40) K/uL [place] # (Auto) 1.37 H (0.11-0.59) K/uL Eos # (Auto) 0.46 (0.00-0.50) K/uL Baso # (Auto) 0.08 (0.00-0.20) K/uL Immature Gran # (Auto) 0.17 (0.01-0.20) K/uL Sodium 135 L (136-145) mmol/L Potassium 5.2 H D (3.5-5.1) mmol/L Chloride 102 (98-107) mmol/L Carbon Dioxide 29 (21-32) mmol/L Anion Gap 4 (3-11) BUN 37 H (6-23) mg/dl Creatinine 1.08 (0.6-1.2) mg/dl Est Cr Clr Drug Dosing 44.8 ml/min eGFR 51.93 BUN/Creatinine Ratio 34.3 H (10-20) Glucose 128 H (70-99(Fasting)) mg/dl Calcium 8.8 (8.6-10.3) mg/dl Magnesium 1.9 (1.7-2.4) mg/dl Medications Administered Current Inpatient Medications Acetaminophen (Acetaminophen 500 Mg Tab) 1,000 mg PO TID [facility] Stop: 11/11/24 22:16 Last Admin: 10/21/24 07:55 Dose: 1,000 mg Acetaminophen (Acetaminophen 500 Mg Tab) 1,000 mg PO Q8H PRN PRN Reason: MILD Pain Scale 1,2,3 & Pre PT Stop: 11/19/24 13:07 Al Hydrox/Mg Hydrox/Simethicone (Aluminum/Magnesium Susp 30 Ml Udc) 30 ml PO Q6H PRN PRN Reason: Dyspepsia Stop: 11/19/24 13:07 Bisacodyl (Bisacodyl 10 Mg Supp) 10 mg NE DAILY PRN PRN Reason: Constipation Stop: 11/19/24 13:07 Calcium Carbonate (Calcium Carbonate 1250mg Tab) 1 tab PO DAILY [facility] Stop: 11/12/24 08:59 Last Admin: 10/21/24 07:57 Dose: 1 tab Cyanocobalamin (Cyanocobalamin (B-12) 500 Mcg Tablet) 500 mcg PO DAILY [facility] Stop: 11/12/24 08:59 Last Admin: 10/21/24 07:57 Dose: 500 mcg Cyclobenzaprine HCl (Cyclobenzaprine Hcl 10 Mg Tab) 10 mg PO Q8H PRN PRN Reason: Muscle Spasm Stop: 11/19/24 13:07 Diclofenac Sodium (Diclofenac Sod 1% Gel 100 Gm Tube) 4 gm EXT Q12 [facility]NAB[facility]; Protocol Stop: 11/13/24 08:59 Last Admin: 10/21/24 07:58 Dose: 4 gm Diphenhydramine HCl (Diphenhydramine Capsule 25 Mg Cap) 25 mg PO Q6H PRN PRN Reason: Allergic Rhinitis/Insomnia Stop: 11/19/24 13:07 Docusate Sodium (Docusate Sodium 100 Mg Cap) 100 mg PO BID PRN PRN Reason: constipation Stop: 11/13/24 20:59 Last Admin: 10/14/24 17:32 Dose: 100 mg Famotidine (Famotidine 20 Mg Tab) 20 mg PO Q12H PRN PRN Reason: Dyspepsia Stop: 11/19/24 13:07 Hydromorphone HCl (Hydromorphone Inj 0.5 Mg/0.5 Ml Syr) 0.5 mg IV Q3H PRN PRN Reason: MODERATE Pain (Scale 4,5,6) & Pre PT Stop: 11/03/24 13:07 Hydroxyzine HCl (Hydroxyzine Hcl 25 Mg Tab) 25 mg PO Q8H PRN PRN Reason: Anxiety Stop: 11/19/24 13:07 Acetaminophen (Ofirmev) 1,000 mg in 100 mls @ 400 mls/hr IV Q8H PRN PRN Reason: Pain Rating 1-3 & Pre PT Stop: 10/21/24 13:08 Promethazine HCl (Phenergan) 12.5 mg in 50.5 mls @ 202 mls/hr IV Q6H PRN PRN Reason: Nausea And Vomiting Stop: 11/19/24 13:07 Influenza Virus Vaccine Quadrival (Do Not Administer Flu Vaccine) 1 each N/A PRN PRN PRN Reason: Notification Stop: 11/19/24 13:07 Lorazepam (Lorazepam 2 Mg/1 Ml Vial) 0.5 mg IV Q8H PRN PRN Reason: Sedation/Anxiety Stop: 11/19/24 13:07 Magnesium Hydroxide (Magnesium Hydroxide Susp 30 Ml Udc) 30 ml PO Q24H PRN PRN Reason: Constipation Stop: 11/19/24 13:07 Melatonin (Melatonin 3 Mg Tab) 6 mg PO HS PRN PRN Reason: Sleep Stop: 11/11/24 22:16 Last Admin: 10/20/24 21:34 Dose: 6 mg Metoclopramide HCl (Metoclopramide Hcl Inj 5 Mg/Ml 2 Ml Vial) 10 mg IV Q6H PRN PRN Reason: Nausea &/or Vomiting Stop: 11/19/24 13:07 Naloxone HCl (Naloxone Hcl 0.4 Mg/1 Ml Vial/Carp) 0.1 mg IV Q5M PRN PRN Reason: Oversedation/Resp depression Stop: 11/19/24 13:07 Ondansetron HCl (Ondansetron Inj 2 Mg/Ml 2 Ml Vial) 4 mg IV Q6H PRN PRN Reason: Nausea &/or Vomiting Stop: 11/19/24 13:07 Ondansetron HCl (Ondansetron 4 Mg Od Tab) 4 mg PO Q6H PRN PRN Reason: Nausea Stop: 11/19/24 13:07 Oxybutynin Chloride (Oxybutynin Chloride 5 Mg Tab) 5 mg PO TID [facility] Stop: 11/11/24 22:16 Last Admin: 10/21/24 07:56 Dose: 5 mg Oxycodone/Acetaminophen (Oxycodone/Acetaminophen 5mg/325mg Tab) 1 - 2 tab PO Q4H PRN PRN Reason: Pain & Pre PT Stop: 11/03/24 13:07 Pneumococcal Polyvalent Vaccine (Do Not Administer Pneumococcal Vaccine) 1 each N/A PRN PRN PRN Reason: Notification Stop: 11/19/24 13:07 Polyethylene Glycol (Polyethylene (Miralax) 17 Gm Pack) 17 gm PO DAILY PRN PRN Reason: Constipation Stop: 11/11/24 22:16 Polyethylene Glycol (Polyethylene (Miralax) 17 Gm Pack) 17 gm PO Q6 [facility] Stop: 11/20/24 05:59 Last Admin: 10/21/24 05:57 Dose: 17 gm Senna/Docusate Sodium (Docusate Sodium/Senna 50/8.6mg Tab) 2 tab PO HS [facility] Stop: 11/19/24 20:59 Last Admin: 10/20/24 21:34 Dose: 2 tab Sodium Biphosphate/Sodium Phosphate (Sod Phosphate/Sod Biphosphate Enema 132 Ml Btl) 132 ml NE ONE PRN PRN Reason: Constipation Stop: 11/19/24 13:07 Tramadol HCl (Tramadol Hcl 50 Mg Tablet) 50 mg PO Q8 PRN PRN Reason: Pain Stop: 11/16/24 11:03 Last Admin: 10/19/24 22:16 Dose: 50 mg Vitamin D (Cholecalciferol 25 Mcg (1000 Units) Tab) 50 mcg PO DAILY [facility] Stop: 11/12/24 08:59 Last Admin: 10/21/24 07:56 Dose: 50 mcg
--- NOTE | 2024-10-21 12:19 | Orthopedic Progress Note ---
Date of Service October 21, 2024 Subjective Patient seen and examined, she notes some incisional symptoms but otherwise she notes a distinct improvement in the numbness that was present in both her feet. Exam reveals the patient to have improved strength for ankle plantar dorsiflexion and also EHL strength bilaterally. Impression: Postop day 1 from posterior instrumentation fusion decompression at L4-5. I recommend the patient mobilize with physical therapy, begin discharge planning to a rehab facility due to limitation she has having to do a fair amount of stairs if she were to go home, the patient is in agreement with this plan. Review of Systems All systems reviewed & are unremarkable except as noted in HPI & below. Physical Exam . Results & Data Results & Data Laboratory Results . Diagnostic Findings . PG Care Time/CCT Total # of Minutes Spent Total Time Spent with Patient: Total time spent is greater than 50% in coordination of care (as documented) at patient's floor/unit and/or counseling patient: Coding Level of Care Code 60085 Post Operative Follow-Up
[2024-10-21] MEDS: oxyCODONE/ACETAMINOPHEN 5mg/325mg TAB PO PRN (12:21)
[2024-10-21] MEDS: MAGNESIUM SULFATE / D5W 1 GM/100 ML BAG IV ONE (12:22)
[2024-10-21 13:04] LABS: BUN Creatinine Ratio 35.1 (10-20); Calcium 9.4 mg/dl (8.6-10.3); Creatinine Clr Calc Pharmacy 51.7 ml/min; Phosphorus 2.9 mg/dl (2.5-4.9); Potassium 4.5 mmol/L (3.5-5.1)
--- NOTE | 2024-10-21 13:08 | Operative Report ---
PG Post Operative Report Pre & Post Diagnosis Operation Date: 10/20/24 07:30 Pre-Op Diagnosis: Degenerative spondylolisthesis with stenosis at L4-5 Post-Op Diagnosis: Degenerative spondylolisthesis with stenosis at L4-5 I identified the patient and participated in the time-out.: Yes Procedure Operation Date: 10/20/24 07:30 Actual Procedures p L4-L5 Decompression and Posterior Instrumentation Fusion, Spinal Cord Monitoring(Not Applicable) - Abhijeet Arnold MD Surgeon Abhijeet Arnold MD [employer] none Estimated Blood Loss 100 Findings Consistent with Post-Op Diagnosis Specimens None Description of Procedure 1. L4-5 posterior lumbar laminectomy/decompression. (38442) 2. L4-5 posterolateral fusion. (47636) 3. L4-5 posterior nonsegmental instrumentation, Medtronic moduleX. (94568) 4. Utilization of products of decompression for fusion purposes. (07743) 5. Stereotactic CT-guided navigation for instrumentation. (14648) Patient was taken the operating room after adequate esthesia was carefully positioned prone on the Mat frame and carefully checked for positioning with attention for the left arm. The lumbar region was preprepped followed by then fluoroscopy brought in I marked for the approximate location of the incision, prepping and draping. Longitudinal incision was then made over the lumbar region and advanced this down to the spinous processes on either side and out to the lamina at L4 and L5, the position was noted and confirmed on fluoroscopy. I continued the exposure out to the transverse processes of L4 and L5 bilaterally, and also then exposing the interlaminar region. Once completed, the array was attached to the L5 spinous process, the O-arm was brought in and a spin was then confirmed. I began the procedure with insertion of the pedicle screws for starting at L5. Using the navigation system I was able to perform a start point followed by tapping and using monitoring confirm proper placement of the tap and screws with no issues regarding the monitoring. 50 mm screws 6.5 mm in diameter were inserted at the L5 level. I then performed a similar function at the L4 level, a spin was then performed noting the hardware to be in proper position at L4 and L5. With the array still in place, I began the decompression procedure and use the array instruments to jenifer for the approximate area of the decompression for the L4-5 level. The array was then removed and I began the decompression procedure with the microscope brought in. Bilateral hemilaminectomies partial medial facetectomies were then performed at the L4-5 level. This included careful thinning and then removal of the thickened ligamentum flavum, stenosis was high-grade with time taken to carefully undercut the facets bilaterally to complete the decompression, and also undercutting any remaining stenosis superiorly under the L4 remaining a lamina and superior laminar edge of L5 and along the facets bilaterally. Upon completion, no issues were noted, fusion materials were then obtained which included products of decompression, and packed in the posterolateral region bilaterally. Rods were then inserted with fixation to the L5 pedicle screws, and then I used the screws to perform a partial reduction of the spondylolisthesis at this level which was confirmed radiologically on C arm. Operative site had been well-irrigated, at this point I then placed combination of vancomycin powder and some limited resolvable antibiotic beads with vancomycin both deep and superficial layers with closure using 0 Vicryl sutures were reattaching the supraspinous ligament were available, additional layer of some 0 Vicryl sutures followed by 2-0 Vicryl sutures and twan for the skin. Patient tolerated procedure well was taken recovery room in satisfactory condition. I attest to the content of the Intraoperative Record and any orders documented therein. Any exceptions are noted below.
--- NOTE | 2024-10-21 15:19 | Cardiology Progress Note ---
Date of Service October 21, 2024 Assessment & Plan (1) Atrial flutter, paroxysmal: (2) Thrombosis of left popliteal artery: (3) Lumbar radicular pain: (4) At risk for sleep apnea: (5) Asymptomatic stenosis of right carotid artery: Plan 79-year-old female admitted with intractable low back pain with radiculopathy. Telemetry revealing short episode of atrial flutter on initial presentation See formal consult on initial presentation. Reconsulted today 1 day postop spinal surgery with recurrence of atrial fibrillation flutter. Patient minimally symptomatic though heart rate elevated. Anticoagulation currently on hold 1. Paroxysmal A-fib flutter with recurrence: High likelihood of continued difficulties during acute convalescence. Would recommend initiating amiodarone therapy with IV amiodarone with conversion to oral amiodarone for at least 30 days postop. Resume Eliquis when able Daily EKG Discussed in detail with patient Admission and Anticipated Discharge Date Admission Date: October 12, 2024 Subjective Patient was seen and personally examined. Cardiology service reconsulted after patient lapsed into atrial fibrillation day post spinal surgery. Recent consultation on the chart for paroxysmal atrial flutter. Currently without acute complaints not aware of tachyarrhythmias heart rate approximately 110-120. No chest pain or shortness of breath. Anticoagulation currently and contraindicated due to recent spinal surgery though anticipates resumption of Eliquis possible tomorrow Review of Systems Review of Systems: All systems reviewed & are unremarkable except as noted in Subjective Physical Exam Constitutional: well developed, well nourished and + obese Respiratory: no respiratory distress, no labored breathing and no retractions Auscultation: no crackles, no rales, no rhonchi and no wheezes Cardiovascular: Rate/Rhythm: regular rate and regular rhythm Heart Sounds: normal S1 and normal S2; no murmur Vessels: no JVD and no carotid bruit Extremities: no edema Gastrointestinal (Abdomen): Inspection/Auscultation: abdomen not distended and + abnormal bowel sounds Percussion/Palpation: abdomen soft; abdomen nontender, no guarding and abdomen not rigid Neurologic: CN's II-XI intact bilaterally and moves all extremities Results & Data Vital Signs (Past 12 Hours) Vital Signs Temp Pulse Pulse Resp BP BP Pulse Ox 10/21/24 14:02 105 H 10/21/24 11:41 36.8 C 121 H 18 143/67 H 92 10/21/24 10:15 10/21/24 07:38 37.1 C 61 18 144/73 H 96 10/21/24 07:03 67 O2 Del Method O2 Flow Rate 10/21/24 14:02 10/21/24 11:41 Nasal Cannula 2 10/21/24 10:15 Room Air 10/21/24 07:38 Nasal Cannula 2 10/21/24 07:03 Laboratory Results Laboratory Results - last 24 hr 10/20/24 10/21/24 10/21/24 15:57 06:37 12:27 WBC 16.60 H RBC 4.30 Hgb 12.2 Hct 37.1 MCV 86.3 MCH 28.4 MCHC 32.9 RDW Std Deviation 42.0 RDW Coeff of [place] 13.4 Plt Count 224 MPV 9.8 Immature Gran % (Auto) 1.0 Neut % (Auto) 72.2 Lymph % (Auto) 15.2 [place] % (Auto) 8.3 Eos % (Auto) 2.8 Baso % (Auto) 0.5 Neut # (Auto) 12.00 H Lymph # (Auto) 2.52 [place] # (Auto) 1.37 H Eos # (Auto) 0.46 Baso # (Auto) 0.08 Immature Gran # (Auto) 0.17 Sodium 135 L 130 L Potassium 5.2 H D 4.5 Chloride 102 98 Carbon Dioxide 29 29 Anion Gap 4 3 BUN 37 H 33 H Creatinine 1.08 0.94 Est Cr Clr Drug Dosing 44.8 51.7 eGFR 51.93 61.34 BUN/Creatinine Ratio 34.3 H 35.1 H Glucose 128 H 130 H Calcium 8.8 9.4 Phosphorus 2.9 Magnesium 1.9 2.0
[2024-10-21] MEDS ORDERED: 0.2 MICRON FILTER SET 1 EACH IV STA (15:59)
[2024-10-21] MEDS: AMIODARONE / D5W 150 MG/100 ML BAG IV STA (16:45)
[2024-10-21] MEDS: AMIODARONE 150MG / 100ML D5W IV ONE (16:50)
[2024-10-21] MEDS: AMIODARONE IV BOLUS & DRIP IV STA (16:50)
[2024-10-21] MEDS: AMIODARONE 360MG / 200ML D5W IV ONE (16:50)
[2024-10-21] MEDS: STAT IV Infusion **Titration per Protocol STA (16:50)
[2024-10-21] MEDS: AMIODARONE / D5W 360 MG/200 ML BAG IV ONE (16:56)
[2024-10-21] MEDS: AMIODARONE / D5W 360 MG/200 ML BAG IV SCH (21:31)
--- NOTE | 2024-10-22 06:07 | Electrocardiogram Report ---
Test Reason : Blood Pressure : */* mmHG Vent. Rate : 100 BPM Atrial Rate : 100 BPM P-R Int : 166 ms QRS Dur : 74 ms QT Int : 318 ms P-R-T Axes : 43 17 94 degrees QTcB Int : 410 ms Normal sinus rhythm Cannot rule out Inferior infarct , age undetermined Possible Anterior infarct , age undetermined Abnormal ECG When compared with ECG of 15-Oct-2024 09:34, Borderline criteria for Anterior infarct are now Present Minimal criteria for Inferior infarct are now Present Confirmed by Billy Sparrow ([id number]) on 10/22/2024 6:06:30 AM Referred By: REFERRED SELF Confirmed By: Billy Sparrow
--- NOTE | 2024-10-22 06:07 | Electrocardiogram Report ---
Test Reason : Blood Pressure : */* mmHG Vent. Rate : 119 BPM Atrial Rate : 288 BPM P-R Int : * ms QRS Dur : 82 ms QT Int : 256 ms P-R-T Axes : * 54 145 degrees QTcB Int : 360 ms Atrial fibrillation with rapid ventricular response Nonspecific ST and T wave abnormality Abnormal ECG When compared with ECG of 21-Oct-2024 12:01, Atrial fibrillation has replaced Sinus rhythm Minimal criteria for Inferior infarct are no longer Present Confirmed by Billy Sparrow ([id number]) on 10/22/2024 6:06:54 AM Referred By: REFERRED SELF Confirmed By: Billy Sparrow
[2024-10-22 07:18] LABS: Hematocrit (blood only) 39.8 % (37.0-47.0); Hemoglobin 12.9 g/dl (12.0-16.0); Mean Corpuscular Hemoglobin 28.1 pg (25.0-34.0); Mean Corpuscular Hgb Conc 32.4 g/dL (32.0-36.0); Mean Corpuscular Volume 86.7 fL (80.0-100.0); Platelet Count 199 K/uL (130-400); RDW Coefficient of Variation 13.6 % (11.5-14.5); RDW Standard Deviation 42.6 fL (36.4-46.3); Red Blood Count 4.59 M/uL (4.20-5.40); White Blood Count 17.18 K/ul (4.8-10.8)
[2024-10-22 08:19] LABS: BUN Creatinine Ratio 30.4 (10-20); Calcium 9.4 mg/dl (8.6-10.3); Creatinine Clr Calc Pharmacy 52.8 ml/min; Magnesium 1.9 mg/dl (1.7-2.4); Phosphorus 2.6 mg/dl (2.5-4.9); Potassium 4.6 mmol/L (3.5-5.1)
--- NOTE | 2024-10-22 09:04 | Hospitalist Progress Note ---
Date of Service October 22, 2024 Assessment & Plan (1) Low back pain potentially associated with radiculopathy: (2) Ambulatory dysfunction: (3) Left leg DVT: (4) Acute UTI: (5) HTN (hypertension): (6) HLD (hyperlipidemia): (7) Carotid artery stenosis: Plan Plan 79 year old female with PMH significant for HTN, HLD, carotid artery stenosis, CKD III, depression, vitamin D deficiency, and stress incontinence who is admitted for intractable back pain. Acute low back pain with radiculopathy Ambulatory dysfunction Lumbar spine MRI revealed mild disc degeneration at L4-5 with annular disc bulge causing severe subarticular recess stenosis with impingement and a critical spinal canal stenosis with effacement of the thecal sac Pain control with scheduled tylenol tid and PRN tramadol PT consult: reduced tolerance to activities, ROM, strength OT consult: impaired ADL participation, reduced functional mobility, decreased activity tolerance, fear of falling Ortho spine surgery consult: IV decadron daily, recommend surgical intervention if patient does not have significant improvement 10/19 Patient for L4/L5 decompression fusion procedure tomorrow by Dr. Arnold Patient is moderate risk for cardiopulmonary complications perioperatively in light of, age group, however no medical contraindication to proceed with above procedure tomorrow Which would greatly help patient's mobility, and prevent further complications of being sedentary including thromboembolism, pneumonia, skin ulcers, etc. explained to patient and daughter, they are understanding and agreeable to proceed with surgery tomorrow management of anticoagulation for treatment of acute DVT per below recommend to monitor patient in MedSurg telemetry at least 24 hours after surgery 10/20 S/p L4-L5 decompression fusion, by Dr. Arnold Stable overall Needs to be restarted on Eliquis twice daily for acute lower extremity DVT once hemostasis stable per orthopedic spine service Pain control PT OT eval LLE DVT Venous duplex revealed 1. Paired left popliteal veins with an acute thrombosed vein, likely the gastrocnemius. 2. A small complicated cyst in the right popliteal fossa measuring 2.1x 2.2 x .7cm. Apixaban 10mg bid x 7 days then 5mg bid thereafter 10/19 Eliquis held this morning Will bridge with heparin drip this afternoon, to be stopped at 1 AM in preparation for the procedure tomorrow Discussed with Dr. 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 * Will not add AV rodriguez blocking agents/beta-sherine at this time due to intermi ttent bradycardia. * Risk factors for obstructive sleep apnea noted, consider nocturnal pulse ox trend and/or outpatient sleep medicine evaluation. * Outpatient 14-day ZIO monitor. * Results of echocardiogram reviewed with patient. * Routine outpatient vascular surgery follow-up of chronic, moderate asymptomatic right internal carotid artery stenosis * No further inpatient testing recommended at this time. Afib RVR 10/21/24 discussed w/ cardiology, Dr. Frias, started on iv amiodarone - was transferred to PCU - will need anticoagulation HTN Continue losartan Holding chlorthalidone HLD hold baby aspirin in light of surgery CKD III BUN 30 and creat 0.85 this am Patient received 500mL NS on 10/17 due to Na 129 and Cl 95 10/18 Na is 132 and Cl 99 - encouraged patient to hydrate 10/20 Na 135 monitor Stress incontinence Continue oxybutynin DVT Prophylaxis: Eliquis on hold in light of Sx Code Status: DNR/DNI PCP: Latrice Narvaez PA-C Disposition: may need Acute Rehab/SNF PT/OT eval Admission and Anticipated Discharge Date Admission Date: October 12, 2024 Subjective Pt seen in follow up S/p lumbar spinal surgery - L4-L5 decompression/fusion 10/20/2024 next day, 10/21 went into Afib w/ RVR, now on IV amiodarone, cardiology following Seen resting in chair, in NAD, awake, alert, feeling well overall Denies shortness of breath, chest pain, palpitations, dizziness Having some mild discomfort at the surgical site, lower back No other new symptoms Review of Systems Review of Systems: All systems reviewed & are unremarkable except as noted in Subjective Physical Exam Physical Exam: General- oriented x 3, not in distress, speaks in sentences with no effort or accessory muscle use Eyes- anicteric Neck- no JVD Lungs- clear breath sounds bilaterally, no rales/wheezes Heart- normal rate, regular rhythm; no murmurs Abdomen- normal bowel sounds, nondistended, soft, nontender Extremities- no pretibial edema, no calf tenderness Neuro- alert, oriented x 3; no gross focal neurologic deficits Skin- warm & dry Results & Data Results & Data Vital Signs (Past 12 Hours) Vital Signs Temp Pulse Pulse Resp BP Pulse Ox O2 Del Method 10/22/24 08:00 36.6 C 88 20 138/77 92 Room Air 10/22/24 02:35 36.7 C 96 H 18 146/71 H 93 Room Air 10/21/24 23:38 84 10/21/24 23:00 36.6 C 84 18 145/54 H 93 Room Air Laboratory Results 10/22/24 10/21/24 Range/Units 06:39 12:27 WBC 17.18 H (4.8-10.8) K/ul RBC 4.59 (4.20-5.40) M/uL Hgb 12.9 (12.0-16.0) g/dl Hct 39.8 (37.0-47.0) % MCV 86.7 (80.0-100.0) fL MCH 28.1 (25.0-34.0) pg MCHC 32.4 (32.0-36.0) g/dL RDW Std Deviation 42.6 (36.4-46.3) fL RDW Coeff of [place] 13.6 (11.5-14.5) % Plt Count 199 (130-400) K/uL MPV 10.0 (9.4-12.4) fL Sodium 131 L 130 L (136-145) mmol/L Potassium 4.6 4.5 (3.5-5.1) mmol/L Chloride 96 L 98 (98-107) mmol/L Carbon Dioxide 30 29 (21-32) mmol/L Anion Gap 5 3 (3-11) BUN 28 H 33 H (6-23) mg/dl Creatinine 0.92 0.94 (0.6-1.2) mg/dl Est Cr Clr Drug Dosing 52.8 51.7 ml/min eGFR 62.94 61.34 BUN/Creatinine Ratio 30.4 H 35.1 H (10-20) Glucose 103 H 130 H (70-99(Fasting)) mg/dl Calcium 9.4 9.4 (8.6-10.3) mg/dl Phosphorus 2.6 2.9 (2.5-4.9) mg/dl Magnesium 1.9 2.0 (1.7-2.4) mg/dl Medications Administered Current Inpatient Medications Acetaminophen (Acetaminophen 500 Mg Tab) 1,000 mg PO TID [facility] Stop: 11/11/24 22:16 Last Admin: 10/22/24 08:25 Dose: 1,000 mg Acetaminophen (Acetaminophen 500 Mg Tab) 1,000 mg PO Q8H PRN PRN Reason: MILD Pain Scale 1,2,3 & Pre PT Stop: 11/19/24 13:07 Al Hydrox/Mg Hydrox/Simethicone (Aluminum/Magnesium Susp 30 Ml Udc) 30 ml PO Q6H PRN PRN Reason: Dyspepsia Stop: 11/19/24 13:07 Bisacodyl (Bisacodyl 10 Mg Supp) 10 mg OR DAILY PRN PRN Reason: Constipation Stop: 11/19/24 13:07 Calcium Carbonate (Calcium Carbonate 1250mg Tab) 1 tab PO DAILY [facility] Stop: 11/12/24 08:59 Last Admin: 10/22/24 08:20 Dose: 1 tab Cyanocobalamin (Cyanocobalamin (B-12) 500 Mcg Tablet) 500 mcg PO DAILY [facility] Stop: 11/12/24 08:59 Last Admin: 10/22/24 08:19 Dose: 500 mcg Cyclobenzaprine HCl (Cyclobenzaprine Hcl 10 Mg Tab) 10 mg PO Q8H PRN PRN Reason: Muscle Spasm Stop: 11/19/24 13:07 Diclofenac Sodium (Diclofenac Sod 1% Gel 100 Gm Tube) 4 gm EXT Q12 [facility]; Protocol Stop: 11/13/24 08:59 Last Admin: 10/22/24 08:23 Dose: Not Given Diphenhydramine HCl (Diphenhydramine Capsule 25 Mg Cap) 25 mg PO Q6H PRN PRN Reason: Allergic Rhinitis/Insomnia Stop: 11/19/24 13:07 Docusate Sodium (Docusate Sodium 100 Mg Cap) 100 mg PO BID PRN PRN Reason: constipation Stop: 11/13/24 20:59 Last Admin: 10/14/24 17:32 Dose: 100 mg Famotidine (Famotidine 20 Mg Tab) 20 mg PO Q12H PRN PRN Reason: Dyspepsia Stop: 11/19/24 13:07 Hydromorphone HCl (Hydromorphone Inj 0.5 Mg/0.5 Ml Syr) 0.5 mg IV Q3H PRN PRN Reason: MODERATE Pain (Scale 4,5,6) & Pre PT Stop: 11/03/24 13:07 Hydroxyzine HCl (Hydroxyzine Hcl 25 Mg Tab) 25 mg PO Q8H PRN PRN Reason: Anxiety Stop: 11/19/24 13:07 Promethazine HCl (Phenergan) 12.5 mg in 50.5 mls @ 202 mls/hr IV Q6H PRN PRN Reason: Nausea And Vomiting Stop: 11/19/24 13:07 Amiodarone HCl/Dextrose (Nexterone / D5w) 360 mg in 200 mls @ 16.667 mls/hr IV .Q12H [facility] Stop: 11/20/24 21:59 Last Admin: 10/21/24 21:31 Dose: 0.5 mg/min, 16.7 mls/hr Influenza Virus Vaccine Quadrival (Do Not Administer Flu Vaccine) 1 each N/A PRN PRN PRN Reason: Notification Stop: 11/19/24 13:07 Lorazepam (Lorazepam 2 Mg/1 Ml Vial) 0.5 mg IV Q8H PRN PRN Reason: Sedation/Anxiety Stop: 11/19/24 13:07 Magnesium Hydroxide (Magnesium Hydroxide Susp 30 Ml Udc) 30 ml PO Q24H PRN PRN Reason: Constipation Stop: 11/19/24 13:07 Melatonin (Melatonin 3 Mg Tab) 6 mg PO HS PRN PRN Reason: Sleep Stop: 11/11/24 22:16 Last Admin: 10/20/24 21:34 Dose: 6 mg Metoclopramide HCl (Metoclopramide Hcl Inj 5 Mg/Ml 2 Ml Vial) 10 mg IV Q6H PRN PRN Reason: Nausea &/or Vomiting Stop: 11/19/24 13:07 Naloxone HCl (Naloxone Hcl 0.4 Mg/1 Ml Vial/Carp) 0.1 mg IV Q5M PRN PRN Reason: Oversedation/Resp depression Stop: 11/19/24 13:07 Ondansetron HCl (Ondansetron Inj 2 Mg/Ml 2 Ml Vial) 4 mg IV Q6H PRN PRN Reason: Nausea &/or Vomiting Stop: 11/19/24 13:07 Ondansetron HCl (Ondansetron 4 Mg Od Tab) 4 mg PO Q6H PRN PRN Reason: Nausea Stop: 11/19/24 13:07 Oxybutynin Chloride (Oxybutynin Chloride 5 Mg Tab) 5 mg PO TID [facility] Stop: 11/11/24 22:16 Last Admin: 10/22/24 08:20 Dose: 5 mg Oxycodone/Acetaminophen (Oxycodone/Acetaminophen 5mg/325mg Tab) 1 - 2 tab PO Q4H PRN PRN Reason: Pain & Pre PT Stop: 11/03/24 13:07 Last Admin: 10/21/24 20:35 Dose: 1 tab Pneumococcal Polyvalent Vaccine (Do Not Administer Pneumococcal Vaccine) 1 each N/A PRN PRN PRN Reason: Notification Stop: 11/19/24 13:07 Polyethylene Glycol (Polyethylene (Miralax) 17 Gm Pack) 17 gm PO DAILY PRN PRN Reason: Constipation Stop: 11/11/24 22:16 Polyethylene Glycol (Polyethylene (Miralax) 17 Gm Pack) 17 gm PO Q6 [facility] Stop: 11/20/24 05:59 Last Admin: 10/22/24 05:06 Dose: 17 gm Senna/Docusate Sodium (Docusate Sodium/Senna 50/8.6mg Tab) 2 tab PO HS [facility] Stop: 11/19/24 20:59 Last Admin: 10/21/24 21:26 Dose: 2 tab Sodium Biphosphate/Sodium Phosphate (Sod Phosphate/Sod Biphosphate Enema 132 Ml Btl) 132 ml OR ONE PRN PRN Reason: Constipation Stop: 11/19/24 13:07 Tramadol HCl (Tramadol Hcl 50 Mg Tablet) 50 mg PO Q8 PRN PRN Reason: Pain Stop: 11/16/24 11:03 Last Admin: 10/19/24 22:16 Dose: 50 mg Vitamin D (Cholecalciferol 25 Mcg (1000 Units) Tab) 50 mcg PO DAILY [facility] Stop: 11/12/24 08:59 Last Admin: 10/22/24 08:19 Dose: 50 mcg
--- NOTE | 2024-10-22 16:15 | Orthopedic Progress Note ---
Date of Service October 22, 2024 Subjective Patient seen and examined, she notes continued improvement in the lower extremities status post her fusion decompression at the L4-5 level now postop day 2. Motor improved in the lower extremities relative to ankle plantar and dorsiflexion. Impression: Postop day 2 from surgery as stated, now with A-fib and on amiodarone drip. Plan: I talked with the patient, I related her that we will continue working with her on mobilization with physical therapy for ambulation. Will continue incisional dressings until the drainage then decreases, she can undergo a quick shower on Saturday, [address] Edouard will be covering for me in my absence. Review of Systems All systems reviewed & are unremarkable except as noted in HPI & below. Physical Exam . Results & Data Results & Data Laboratory Results . Diagnostic Findings . PG Care Time/CCT Total # of Minutes Spent Total Time Spent with Patient: Total time spent is greater than 50% in coordination of care (as documented) at patient's floor/unit and/or counseling patient: Coding Level of Care Code 61513 Post Operative Follow-Up
--- NOTE | 2024-10-22 16:32 | Cardiology Progress Note ---
Date of Service October 22, 2024 Assessment & Plan (1) Atrial flutter, paroxysmal: (2) Thrombosis of left popliteal artery: (3) Lumbar radicular pain: (4) At risk for sleep apnea: (5) Asymptomatic stenosis of right carotid artery: Plan 79-year-old female admitted with intractable low back pain with radiculopathy. Telemetry revealing short episode of atrial flutter on initial presentation See formal consult on initial presentation. Reconsulted today 1 day postop spinal surgery with recurrence of atrial fibrillation flutter. Patient minimally symptomatic though heart rate elevated. Anticoagulation currently on hold 1. Paroxysmal A-fib flutter with recurrence: High likelihood of continued difficulties during acute convalescence. Would recommend initiating amiodarone therapy with IV amiodarone with conversion to oral amiodarone for at least 30 days postop. Resume Eliquis when able Daily EKG Discussed in detail with patient 10/22/2024 1. Paroxysmal atrial fibrillation flutter: Patient has converted to sinus rhythm with IV amiodarone. Asymptomatic Recommendations: Begin oral amiodarone 200 mg 3 times daily and discontinue IV amiodarone. EKG today and in a.m. Will anticipate discharge on amiodarone Resume anticoagulation when agreeable to surgeon. Admission and Anticipated Discharge Date Admission Date: October 12, 2024 Subjective Patient seen and examined, chart, telemetry reviewed. Patient converted to sinus rhythm yesterday afternoon after transient episode of A-fib flutter. Has been on IV amiodarone since without arrhythmia. No chest pain or shortness of breath Review of Systems Review of Systems: All systems reviewed & are unremarkable except as noted in Subjective Physical Exam Constitutional: well developed, well nourished and + obese Neck: trachea midline, no thyromegaly Respiratory: no respiratory distress, no labored breathing and no retractions Auscultation: no crackles, no rales, no rhonchi and no wheezes Cardiovascular: Rate/Rhythm: regular rate and regular rhythm Heart Sounds: normal S1 and normal S2; no murmur Vessels: no JVD and no carotid bruit Extremities: no edema Gastrointestinal (Abdomen): Inspection/Auscultation: abdomen not distended and + abnormal bowel sounds Percussion/Palpation: abdomen soft; abdomen nontender, no guarding and abdomen not rigid Neurologic: CN's II-XI intact bilaterally and moves all extremities Results & Data Vital Signs (Past 12 Hours) Vital Signs Temp Pulse Resp BP Pulse Ox O2 Del Method 10/22/24 15:51 36.7 C 76 13 139/68 93 Room Air 10/22/24 08:00 36.6 C 88 20 138/77 92 Room Air Laboratory Results Laboratory Results - last 24 hr 10/22/24 10/22/24 06:39 16:14 WBC 17.18 H RBC 4.59 Hgb 12.9 Hct 39.8 MCV 86.7 MCH 28.1 MCHC 32.4 RDW Std Deviation 42.6 RDW Coeff of [place] 13.6 Plt Count 199 MPV 10.0 PT Pending INR Pending APTT Pending PTT Ratio Pending Heparin Anti-Xa, Unfract Pending Sodium 131 L Potassium 4.6 Chloride 96 L Carbon Dioxide 30 Anion Gap 5 BUN 28 H Creatinine 0.92 Est Cr Clr Drug Dosing 52.8 eGFR 62.94 BUN/Creatinine Ratio 30.4 H Glucose 103 H Calcium 9.4 Phosphorus 2.6 Magnesium 1.9
[2024-10-22 17:10] LABS: ANTI-Xa, UFH(UnfractionatedHep 0.19 IU/ml (0.3-0.7); Partial Thromboplastin Time 28 Seconds (21-31); Prothrombin Time 10.4 Seconds (9.0-12.0)
[2024-10-22] MEDS: Heparin IV Adult Wt-Based Low-Dose *NO* INITIAL Bolus Protocol IV STA (17:50)
[2024-10-22] MEDS: HEPARIN 25000 UNIT/500 ML D5W 25,000 UNITS/500 ML BAG IV SCH (17:50)
[2024-10-22] MEDS: AMIODARONE 200 MG TAB PO SCH (17:53)
[2024-10-23 01:42] LABS: ANTI-Xa, UFH(UnfractionatedHep 0.43 IU/ml (0.3-0.7)
--- NOTE | 2024-10-23 08:06 | Orthopedic Progress Note ---
Date of Service October 23, 2024 Assessment & Plan (1) S/P lumbar fusion: She is POD 3 from posterior lumbar fusion and decompression. Pain controlled. Dressing changed today, slight drainage but incision looks good. Continue mobilization with PT/OT. She does have heparin and eliquis ordered for atrial fibrillation. I will discuss anticoagulation with Dr Edouard today. Subjective . 79 year old patient POD 3 from L4-L5 posterior decompression and fusion with Dr Arnold. Not really having any back pain or radicular pain. Her feet still feel sort of numb/weak to her. Review of Systems All systems reviewed & are unremarkable except as noted in HPI & below. Physical Exam . alert, oriented. NAD. VSS Patient able to log roll and sit up with assistance. Dressing saturated and was changed this morning. Incision intact. Slight bloody drainage. She is able to dorsiflex and plantarflex against resistance as well. Sensation intact to touch. Results & Data Results & Data Laboratory Results . Diagnostic Findings . PG Care Time/CCT Total # of Minutes Spent Total Time Spent with Patient: Total time spent is greater than 50% in coordination of care (as documented) at patient's floor/unit and/or counseling patient: Coding Level of Care Code 60556 Post Operative Follow-Up Diagnoses S/P lumbar fusion Z98.1
[2024-10-23 11:06] LABS: Hematocrit (blood only) 33.6 % (37.0-47.0); Hemoglobin 11.3 g/dl (12.0-16.0); Mean Corpuscular Hemoglobin 28.6 pg (25.0-34.0); Mean Corpuscular Hgb Conc 33.6 g/dL (32.0-36.0); Mean Corpuscular Volume 85.1 fL (80.0-100.0); Mean Platelet Volume 10.2 fL (9.4-12.4); Platelet Count 228 K/uL (130-400); RDW Coefficient of Variation 13.3 % (11.5-14.5); RDW Standard Deviation 41.7 fL (36.4-46.3); Red Blood Count 3.95 M/uL (4.20-5.40); White Blood Count 15.85 K/ul (4.8-10.8)
[2024-10-23 11:25] LABS: ANTI-Xa, UFH(UnfractionatedHep 0.39 IU/ml (0.3-0.7)
[2024-10-23 11:31] LABS: BUN Creatinine Ratio 28.8 (10-20); Calcium 9.2 mg/dl (8.6-10.3); Creatinine Clr Calc Pharmacy 68.9 ml/min; Magnesium 1.7 mg/dl (1.7-2.4); Phosphorus 2.1 mg/dl (2.5-4.9); Potassium 4.5 mmol/L (3.5-5.1)
--- NOTE | 2024-10-23 12:43 | Cardiology Progress Note ---
Date of Service October 23, 2024 Assessment & Plan (1) Atrial flutter, paroxysmal: (2) Thrombosis of left popliteal artery: (3) Lumbar radicular pain: (4) At risk for sleep apnea: (5) Asymptomatic stenosis of right carotid artery: Plan 79-year-old female admitted with intractable low back pain with radiculopathy. Telemetry revealing short episode of atrial flutter on initial presentation See formal consult on initial presentation. Reconsulted today 1 day postop spinal surgery with recurrence of atrial fibrillation flutter. Patient minimally symptomatic though heart rate elevated. Anticoagulation currently on hold 1. Paroxysmal A-fib flutter with recurrence: High likelihood of continued difficulties during acute convalescence. Would recommend initiating amiodarone therapy with IV amiodarone with conversion to oral amiodarone for at least 30 days postop. Resume Eliquis when able Daily EKG Discussed in detail with patient 10/22/2024 1. Paroxysmal atrial fibrillation flutter: Patient has converted to sinus rhythm with IV amiodarone. Asymptomatic Recommendations: Begin oral amiodarone 200 mg 3 times daily and discontinue IV amiodarone. EKG today and in a.m. Will anticipate discharge on amiodarone Resume anticoagulation when agreeable to surgeon. 10/23/2024 1. Paroxysmal atrial fibrillation flutter remains in sinus rhythm. Amiodarone transition to oral. EKG pending Goal amiodarone 200 mg twice per day on discharge x 1 week then daily Follow-up cardiology 4 to 6 weeks Chronic anticoagulation indicated. Resume Eliquis Admission and Anticipated Discharge Date Admission Date: October 12, 2024 Subjective Patient seen and examined, chart, medications, telemetry reviewed Patient doing well today no cardiac complaints. Has remained in sinus rhythm overnight. No chest pains or shortness of breath. Patient has not observed any bleeding issues currently anticoagulated with IV heparin. Mild back pain with ambulation today Review of Systems Review of Systems: All systems reviewed & are unremarkable except as noted in Subjective Physical Exam Constitutional: well developed, well nourished and + obese Eyes: PERRL, conjunctivae normal, anicteric sclerae ENMT: external ear and nose normal, oropharynx normal Neck: trachea midline, no thyromegaly Respiratory: no respiratory distress, no labored breathing and no retractions Auscultation: no crackles, no rales, no rhonchi and no wheezes Cardiovascular: Rate/Rhythm: regular rate and regular rhythm Heart Sounds: normal S1 and normal S2; no murmur Vessels: no JVD and no carotid bruit Extremities: no edema Gastrointestinal (Abdomen): Inspection/Auscultation: abdomen not distended and + abnormal bowel sounds Percussion/Palpation: abdomen soft; abdomen nontender, no guarding and abdomen not rigid Neurologic: CN's II-XI intact bilaterally and moves all extremities Results & Data Vital Signs (Past 12 Hours) Vital Signs Temp Pulse Resp BP Pulse Ox O2 Del Method 10/23/24 11:00 36.6 C 80 18 141/60 H 97 Room Air 10/23/24 07:53 36.7 C 73 20 138/62 96 Room Air 10/23/24 03:04 36.6 C 83 18 99/53 L 93 Room Air Laboratory Results Laboratory Results - last 24 hr 10/22/24 10/23/24 10/23/24 16:14 00:35 10:27 WBC 15.85 H RBC 3.95 L Hgb 11.3 L Hct 33.6 L MCV 85.1 MCH 28.6 MCHC 33.6 RDW Std Deviation 41.7 RDW Coeff of [place] 13.3 Plt Count 228 MPV 10.2 PT 10.4 INR 1.0 APTT 28 PTT Ratio 1.0 Heparin Anti-Xa, Unfract 0.19 L 0.43 0.39 Sodium 129 L Potassium 4.5 Chloride 95 L Carbon Dioxide 28 Anion Gap 6 BUN 21 Creatinine 0.73 Est Cr Clr Drug Dosing 68.9 eGFR 83.08 BUN/Creatinine Ratio 28.8 H Glucose 104 H Calcium 9.2 Phosphorus 2.1 L Magnesium 1.7
--- NOTE | 2024-10-23 15:23 | Hospitalist Progress Note ---
Date of Service October 23, 2024 Assessment & Plan (1) Low back pain potentially associated with radiculopathy: (2) Ambulatory dysfunction: (3) Left leg DVT: (4) Acute UTI: (5) HTN (hypertension): (6) HLD (hyperlipidemia): (7) Carotid artery stenosis: Plan Plan 79 year old female with PMH significant for HTN, HLD, carotid artery stenosis, CKD III, depression, vitamin D deficiency, and stress incontinence who is admitted for intractable back pain. Acute low back pain with radiculopathy Ambulatory dysfunction Lumbar spine MRI revealed mild disc degeneration at L4-5 with annular disc bulge causing severe subarticular recess stenosis with impingement and a critical spinal canal stenosis with effacement of the thecal sac Pain control with scheduled tylenol tid and PRN tramadol PT consult: reduced tolerance to activities, ROM, strength OT consult: impaired ADL participation, reduced functional mobility, decreased activity tolerance, fear of falling Ortho spine surgery consult: IV decadron daily, recommend surgical intervention if patient does not have significant improvement 10/19 Patient for L4/L5 decompression fusion procedure tomorrow by Dr. Arnold Patient is moderate risk for cardiopulmonary complications perioperatively in light of, age group, however no medical contraindication to proceed with above procedure tomorrow Which would greatly help patient's mobility, and prevent further complications of being sedentary including thromboembolism, pneumonia, skin ulcers, etc. explained to patient and daughter, they are understanding and agreeable to proceed with surgery tomorrow management of anticoagulation for treatment of acute DVT per below recommend to monitor patient in MedSurg telemetry at least 24 hours after surgery 10/20 S/p L4-L5 decompression fusion, by Dr. Arnold Stable overall Needs to be restarted on Eliquis twice daily for acute lower extremity DVT once hemostasis stable per orthopedic spine service Pain control PT OT eval LLE DVT Venous duplex revealed 1. Paired left popliteal veins with an acute thrombosed vein, likely the gastrocnemius. 2. A small complicated cyst in the right popliteal fossa measuring 2.1x 2.2 x .7cm. Apixaban 10mg bid x 7 days then 5mg bid thereafter 10/19 Eliquis held this morning Will bridge with heparin drip this afternoon, to be stopped at 1 AM in preparation for the procedure tomorrow Discussed with Dr. Arnold 10/20 Needs to be restarted on Eliquis twice daily for acute lower extremity DVT once hemostasis stable per orthopedic spine service Risk factor for DVT includes not ambulating as frequently due to back pain -> will need AC indefinitely given Afib Acute UTI UA +nitrites, leuk esterase, bacteria Patient asymptomatic but disclosed that she had a UTI 3 weeks ago and was prescribed Augmentin but did not complete the course due to diarrhea Urine culture positive with E coli Ceftriaxone 5/5 day course completed Episode of Aflutter seen by cardiology - continue Eliquis do not recommend AV blocking agent d/t episodes of bradycardia Full Recommendations: * Continue Eliquis. * Will not add AV rodriguez blocking agents/beta-sherine at this time due to intermittent bradycardia. * Risk factors for obstructive sleep apnea noted, consider nocturnal pulse ox trend and/or outpatient sleep medicine evaluation. * Outpatient 14-day ZIO monitor. * Results of echocardiogram reviewed with patient. * Routine outpatient vascular surgery follow-up of chronic, moderate asymptomatic right internal carotid artery stenosis * No further inpatient testing recommended at this time. Afib RVR 10/21/24 discussed w/ cardiology, Dr. Frias, started on iv amiodarone - was transferred to PCU - will need anticoagulation, currently on IV heparin, will switch to Eliquis tonight - converted to sinus rhythm, amiodarone switch to PO - Goal amiodarone 200 mg twice per day on discharge x 1 week then daily Follow-up cardiology 4 to 6 weeks HTN Continue losartan Holding chlorthalidone HLD held baby aspirin in light of surgery CKD III BUN 30 and creat 0.85 this am Patient received 500mL NS on 10/17 due to Na 129 and Cl 95 10/18 Na is 132 and Cl 99 - encouraged patient to hydrate 10/20 Na 135 monitor Stress incontinence Continue oxybutynin DVT Prophylaxis: iv heparin -> Eliquis Code Status: DNR/DNI PCP: Latrice Narvaez PA-C Disposition: [facility] Admission and Anticipated Discharge Date Admission Date: October 12, 2024 Subjective Pt seen in follow up S/p lumbar spinal surgery - L4-L5 decompression/fusion 10/20/2024 next day, 10/21 went into Afib w/ RVR, started on IV amiodarone, now converted to sinus rhythm and on PO amiodarone Seen resting in bed, in NAD, awake, alert, feeling well overall Denies shortness of breath, chest pain, palpitations, dizziness Having some mild discomfort at the surgical site, lower back No other new symptoms Plan to switch to Eliquis this evening and [facility] Review of Systems Review of Systems: All systems reviewed & are unremarkable except as noted in Subjective Physical Exam Physical Exam: General- oriented x 3, not in distress, speaks in sentences with no effort or accessory muscle use Eyes- anicteric Neck- no JVD Lungs- clear breath sounds bilaterally, no rales/wheezes Heart- normal rate, regular rhythm; no murmurs Abdomen- normal bowel sounds, nondistended, soft, nontender Extremities- no pretibial edema, no calf tenderness Neuro- alert, oriented x 3; no gross focal neurologic deficits Skin- warm & dry Results & Data Results & Data Vital Signs (Past 12 Hours) Vital Signs Temp Pulse Resp BP Pulse Ox O2 Del Method 10/23/24 11:00 36.6 C 80 18 141/60 H 97 Room Air 10/23/24 07:53 36.7 C 73 20 138/62 96 Room Air Laboratory Results 10/23/24 10/23/24 10/22/24 Range/Units 10:27 00:35 16:14 WBC 15.85 H (4.8-10.8) K/ul RBC 3.95 L (4.20-5.40) M/uL Hgb 11.3 L (12.0-16.0) g/dl Hct 33.6 L (37.0-47.0) % MCV 85.1 (80.0-100.0) fL MCH 28.6 (25.0-34.0) pg MCHC 33.6 (32.0-36.0) g/dL RDW Std Deviation 41.7 (36.4-46.3) fL RDW Coeff of [place] 13.3 (11.5-14.5) % Plt Count 228 (130-400) K/uL MPV 10.2 (9.4-12.4) fL PT 10.4 (9.0-12.0) Seconds INR 1.0 (0.9-1.1) APTT 28 (21-31) Seconds PTT Ratio 1.0 Heparin Anti-Xa, Unfract 0.39 0.43 0.19 L (0.3-0.7) IU/ml Sodium 129 L (136-145) mmol/L Potassium 4.5 (3.5-5.1) mmol/L Chloride 95 L (98-107) mmol/L Carbon Dioxide 28 (21-32) mmol/L Anion Gap 6 (3-11) BUN 21 (6-23) mg/dl Creatinine 0.73 (0.6-1.2) mg/dl Est Cr Clr Drug Dosing 68.9 ml/min eGFR 83.08 BUN/Creatinine Ratio 28.8 H (10-20) Glucose 104 H (70-99(Fasting)) mg/dl Calcium 9.2 (8.6-10.3) mg/dl Phosphorus 2.1 L (2.5-4.9) mg/dl Magnesium 1.7 (1.7-2.4) mg/dl Medications Administered Current Inpatient Medications Acetaminophen (Acetaminophen 500 Mg Tab) 1,000 mg PO TID [facility] Stop: 11/11/24 22:16 Last Admin: 10/23/24 14:47 Dose: 1,000 mg Acetaminophen (Acetaminophen 500 Mg Tab) 1,000 mg PO Q8H PRN PRN Reason: MILD Pain Scale 1,2,3 & Pre PT Stop: 11/19/24 13:07 Al Hydrox/Mg Hydrox/Simethicone (Aluminum/Magnesium Susp 30 Ml Udc) 30 ml PO Q6H PRN PRN Reason: Dyspepsia Stop: 11/19/24 13:07 Amiodarone HCl (Amiodarone 200 Mg Tab) 200 mg PO TIDM [facility] Stop: 11/21/24 16:59 Last Admin: 10/23/24 12:32 Dose: 200 mg Apixaban (Apixaban 5 Mg Tablet) 5 mg PO BID [facility] Stop: 11/22/24 20:59 Bisacodyl (Bisacodyl 10 Mg Supp) 10 mg DE DAILY PRN PRN Reason: Constipation Stop: 11/19/24 13:07 Calcium Carbonate (Calcium Carbonate 1250mg Tab) 1 tab PO DAILY [facility] Stop: 11/12/24 08:59 Last Admin: 10/23/24 09:02 Dose: 1 tab Cyanocobalamin (Cyanocobalamin (B-12) 500 Mcg Tablet) 500 mcg PO DAILY [facility] Stop: 11/12/24 08:59 Last Admin: 10/23/24 09:02 Dose: 500 mcg Cyclobenzaprine HCl (Cyclobenzaprine Hcl 10 Mg Tab) 10 mg PO Q8H PRN PRN Reason: Muscle Spasm Stop: 11/19/24 13:07 Diclofenac Sodium (Diclofenac Sod 1% Gel 100 Gm Tube) 4 gm EXT Q12 [facility]; Protocol Stop: 11/13/24 08:59 Last Admin: 10/23/24 09:03 Dose: Not Given Diphenhydramine HCl (Diphenhydramine Capsule 25 Mg Cap) 25 mg PO Q6H PRN PRN Reason: Allergic Rhinitis/Insomnia Stop: 11/19/24 13:07 Docusate Sodium (Docusate Sodium 100 Mg Cap) 100 mg PO BID PRN PRN Reason: constipation Stop: 11/13/24 20:59 Last Admin: 10/14/24 17:32 Dose: 100 mg Famotidine (Famotidine 20 Mg Tab) 20 mg PO Q12H PRN PRN Reason: Dyspepsia Stop: 11/19/24 13:07 Hydromorphone HCl (Hydromorphone Inj 0.5 Mg/0.5 Ml Syr) 0.5 mg IV Q3H PRN PRN Reason: MODERATE Pain (Scale 4,5,6) & Pre PT Stop: 11/03/24 13:07 Hydroxyzine HCl (Hydroxyzine Hcl 25 Mg Tab) 25 mg PO Q8H PRN PRN Reason: Anxiety Stop: 11/19/24 13:07 Promethazine HCl (Phenergan) 12.5 mg in 50.5 mls @ 202 mls/hr IV Q6H PRN PRN Reason: Nausea And Vomiting Stop: 11/19/24 13:07 Heparin Sodium/Dextrose (Heparin 55334 Unit/500 Ml D5w) 25,000 units in 500 mls @ 16 mls/hr IV .Q24H [facility]; Protocol Stop: 10/23/24 20:55 Last Titration: 10/23/24 01:47 Dose: 800 units/hr, 16 mls/hr Magnesium Sulfate/Dextrose (Magnesium Sulfate / D5w) 1 gm in 100 mls @ 50 mls/hr IV ONE ONE Stop: 10/23/24 17:33 Influenza Virus Vaccine Quadrival (Do Not Administer Flu Vaccine) 1 each N/A PRN PRN PRN Reason: Notification Stop: 11/19/24 13:07 Lorazepam (Lorazepam 2 Mg/1 Ml Vial) 0.5 mg IV Q8H PRN PRN Reason: Sedation/Anxiety Stop: 11/19/24 13:07 Magnesium Hydroxide (Magnesium Hydroxide Susp 30 Ml Udc) 30 ml PO Q24H PRN PRN Reason: Constipation Stop: 11/19/24 13:07 Melatonin (Melatonin 3 Mg Tab) 6 mg PO HS PRN PRN Reason: Sleep Stop: 11/11/24 22:16 Last Admin: 10/20/24 21:34 Dose: 6 mg Metoclopramide HCl (Metoclopramide Hcl Inj 5 Mg/Ml 2 Ml Vial) 10 mg IV Q6H PRN PRN Reason: Nausea &/or Vomiting Stop: 11/19/24 13:07 Naloxone HCl (Naloxone Hcl 0.4 Mg/1 Ml Vial/Carp) 0.1 mg IV Q5M PRN PRN Reason: Oversedation/Resp depression Stop: 11/19/24 13:07 Ondansetron HCl (Ondansetron Inj 2 Mg/Ml 2 Ml Vial) 4 mg IV Q6H PRN PRN Reason: Nausea &/or Vomiting Stop: 11/19/24 13:07 Ondansetron HCl (Ondansetron 4 Mg Od Tab) 4 mg PO Q6H PRN PRN Reason: Nausea Stop: 11/19/24 13:07 Oxybutynin Chloride (Oxybutynin Chloride 5 Mg Tab) 5 mg PO TID [facility] Stop: 11/11/24 22:16 Last Admin: 10/23/24 14:47 Dose: Not Given Oxycodone/Acetaminophen (Oxycodone/Acetaminophen 5mg/325mg Tab) 1 - 2 tab PO Q4H PRN PRN Reason: Pain & Pre PT Stop: 11/03/24 13:07 Last Admin: 10/22/24 20:08 Dose: 1 tab Pneumococcal Polyvalent Vaccine (Do Not Administer Pneumococcal Vaccine) 1 each N/A PRN PRN PRN Reason: Notification Stop: 11/19/24 13:07 Polyethylene Glycol (Polyethylene (Miralax) 17 Gm Pack) 17 gm PO DAILY PRN PRN Reason: Constipation Stop: 11/11/24 22:16 Polyethylene Glycol (Polyethylene (Miralax) 17 Gm Pack) 17 gm PO Q6 [facility] Stop: 11/20/24 05:59 Last Admin: 10/23/24 12:36 Dose: 17 gm Senna/Docusate Sodium (Docusate Sodium/Senna 50/8.6mg Tab) 2 tab PO HS [facility] Stop: 11/19/24 20:59 Last Admin: 10/22/24 20:07 Dose: 2 tab Sodium Biphosphate/Sodium Phosphate (Sod Phosphate/Sod Biphosphate Enema 132 Ml Btl) 132 ml DE ONE PRN PRN Reason: Constipation Stop: 11/19/24 13:07 Tramadol HCl (Tramadol Hcl 50 Mg Tablet) 50 mg PO Q8 PRN PRN Reason: Pain Stop: 11/16/24 11:03 Last Admin: 10/19/24 22:16 Dose: 50 mg Vitamin D (Cholecalciferol 25 Mcg (1000 Units) Tab) 50 mcg PO DAILY [facility] Stop: 11/12/24 08:59 Last Admin: 10/23/24 09:02 Dose: 50 mcg
--- NOTE | 2024-10-23 16:14 | Electrocardiogram Report ---
Test Reason : Blood Pressure : */* mmHG Vent. Rate : 83 BPM Atrial Rate : 83 BPM P-R Int : 182 ms QRS Dur : 88 ms QT Int : 358 ms P-R-T Axes : 64 61 85 degrees QTcB Int : 420 ms Normal sinus rhythm Nonspecific ST and T wave abnormality Abnormal ECG When compared with ECG of 21-Oct-2024 14:16, Sinus rhythm has replaced Atrial fibrillation Confirmed by En Mccarty [id number]) on 10/23/2024 4:14:39 PM Referred By: REFERRED SELF Confirmed By: En Mccarty
[2024-10-23] MEDS: MAGNESIUM SULFATE / D5W 1 GM/100 ML BAG IV ONE (16:51)
[2024-10-23] MEDS: APIXABAN 5 MG TABLET PO SCH (21:54)
[2024-10-24 07:39] LABS: Hematocrit (blood only) 31.7 % (37.0-47.0); Hemoglobin 10.6 g/dl (12.0-16.0); Mean Corpuscular Hemoglobin 28.2 pg (25.0-34.0); Mean Corpuscular Hgb Conc 33.4 g/dL (32.0-36.0); Mean Corpuscular Volume 84.3 fL (80.0-100.0); Mean Platelet Volume 9.8 fL (9.4-12.4); Platelet Count 247 K/uL (130-400); RDW Coefficient of Variation 13.4 % (11.5-14.5); RDW Standard Deviation 41.5 fL (36.4-46.3); Red Blood Count 3.76 M/uL (4.20-5.40); White Blood Count 12.44 K/ul (4.8-10.8)
[2024-10-24 07:55] LABS: BUN Creatinine Ratio 33.8 (10-20); Calcium 8.8 mg/dl (8.6-10.3); Creatinine Clr Calc Pharmacy 77.9 ml/min; Magnesium 1.9 mg/dl (1.7-2.4); Phosphorus 2.9 mg/dl (2.5-4.9); Potassium 4.4 mmol/L (3.5-5.1)
--- NOTE | 2024-10-24 09:06 | Cardiology Progress Note ---
Date of Service October 24, 2024 Assessment & Plan (1) Atrial flutter, paroxysmal: (2) Thrombosis of left popliteal artery: (3) Lumbar radicular pain: (4) At risk for sleep apnea: (5) Asymptomatic stenosis of right carotid artery: Plan 79-year-old female admitted with intractable low back pain with radiculopathy. Telemetry revealing short episode of atrial flutter on initial presentation See formal consult on initial presentation. Reconsulted today 1 day postop spinal surgery with recurrence of atrial fibrillation flutter. Patient minimally symptomatic though heart rate elevated. Anticoagulation currently on hold 1. Paroxysmal A-fib flutter with recurrence: High likelihood of continued difficulties during acute convalescence. Would recommend initiating amiodarone therapy with IV amiodarone with conversion to oral amiodarone for at least 30 days postop. Resume Eliquis when able Daily EKG Discussed in detail with patient 10/22/2024 1. Paroxysmal atrial fibrillation flutter: Patient has converted to sinus rhythm with IV amiodarone. Asymptomatic Recommendations: Begin oral amiodarone 200 mg 3 times daily and discontinue IV amiodarone. EKG today and in a.m. Will anticipate discharge on amiodarone Resume anticoagulation when agreeable to surgeon. 10/23/2024 1. Paroxysmal atrial fibrillation flutter remains in sinus rhythm. Amiodarone transition to oral. EKG pending Goal amiodarone 200 mg twice per day on discharge x 1 week then daily Follow-up cardiology 4 to 6 weeks Chronic anticoagulation indicated. Resume Eliquis 10/24/2024 Assessment and plan for paroxysmal A-fib flutter as above. No changes. Will sign off contact with question Admission and Anticipated Discharge Date Admission Date: October 12, 2024 Subjective Patient seen and examined, chart, medications, telemetry reviewed. No further atrial arrhythmias. Tolerating current medications including amiodarone well EKG today normal sinus rhythm with normal tracing. QT corrected 443 Review of Systems Review of Systems: All systems reviewed & are unremarkable except as noted in Subjective Physical Exam Constitutional: well developed, well nourished and + obese Eyes: PERRL, conjunctivae normal, anicteric sclerae ENMT: external ear and nose normal, oropharynx normal Neck: trachea midline, no thyromegaly Respiratory: no respiratory distress, no labored breathing and no retractions Auscultation: no crackles, no rales, no rhonchi and no wheezes Cardiovascular: Rate/Rhythm: regular rate and regular rhythm Heart Sounds: normal S1 and normal S2; no murmur Vessels: no JVD and no carotid bruit Extremities: no edema Gastrointestinal (Abdomen): Inspection/Auscultation: abdomen not distended and + abnormal bowel sounds Percussion/Palpation: abdomen soft; abdomen nontender, no guarding and abdomen not rigid Neurologic: CN's II-XI intact bilaterally and moves all extremities Results & Data Vital Signs (Past 12 Hours) Vital Signs Temp Pulse Pulse Resp BP Pulse Ox O2 Del Method 10/24/24 07:31 36.6 C 70 19 105/51 L 93 Room Air 10/24/24 03:35 70 10/24/24 02:42 36.6 C 65 18 120/71 95 Room Air 10/23/24 22:53 36.6 C 68 18 95/45 L 98 Room Air Laboratory Results Laboratory Results - last 24 hr 10/23/24 10/24/24 10:27 06:51 WBC 15.85 H 12.44 H RBC 3.95 L 3.76 L Hgb 11.3 L 10.6 L Hct 33.6 L 31.7 L MCV 85.1 84.3 MCH 28.6 28.2 MCHC 33.6 33.4 RDW Std Deviation 41.7 41.5 RDW Coeff of [place] 13.3 13.4 Plt Count 228 247 MPV 10.2 9.8 Heparin Anti-Xa, Unfract 0.39 Sodium 129 L 131 L Potassium 4.5 4.4 Chloride 95 L 97 L Carbon Dioxide 28 30 Anion Gap 6 4 BUN 21 22 Creatinine 0.73 0.65 Est Cr Clr Drug Dosing 68.9 77.9 eGFR 83.08 88.95 BUN/Creatinine Ratio 28.8 H 33.8 H Glucose 104 H 84 Calcium 9.2 8.8 Phosphorus 2.1 L 2.9 Magnesium 1.7 1.9
--- NOTE | 2024-10-24 10:28 | Discharge Summary ---
Date of Service October 24, 2024 Admission HPI Per Admitting Provider This is an 79 yr old F who has a significant PMH of HTN, HLD, carotid artery stenosis, Vit D def, stress incontinence, ckd-3, depression who presents to ED 2/2 Back Pain. Reports back pain since October 01. Pain is mostly in the R buttock that is radiating to the left. She has visited 2 separate providers and was prescribed 10 days of prednisone w/o relief. She is having a difficult time ambulating at home and she has having numbness down both of her legs. She has significant leg weakness to the point she could not get in the shower this morning. She does report urinary incontinence, but this has been going on for years. She is moving bowels w/o difficulty and denies any saddle anesthesia. She denies any recent illness. She lives with her daughter who has 18 steps and is unable to tolerate that. She uses a cane to walk. She denies f/c/s, chest pain, sob, n/v/d abd pain. In ED she was hemodynamically stable. Work up revealed possible UTI, although pt denies any dysuria, increased urinary urg/freq or lindsey turia. Her lab work up revealed a mild renal insuff with a cr of 1.22 and US revealed a LLE popliteal DVT. Admission Exam Per Admitting Provider GENERAL APPEARANCE: AxOx4, generally well-appearing female with some discomfort otherwise no acute distress. HEENT: NC, AT. MMM. EOMI, clear conjunctiva, oropharynx clear. NECK: Supple without lymphadenopathy. No stiffness or restricted ROM. HEART: Normal rate and regular rhythm, normal S1/S1, no m/r/g LUNGS: CTAB, moving air well. No crackles or wheezes are heard. ABDOMEN: Soft, nontender, nondistended with good bowel sounds heard. BACK: No CVAT, no obvious deformity. EXTREMITIES: Without cyanosis, clubbing or edema. congenital deformity of LUE noted NEUROLOGICAL: Grossly nonfocal. Alert and oriented, moving all 4 extremities. CN not formally tested but appear grossly intact. dorsiflexion 4/5, plantar 5/5 BLE. strength in proximal muscle groups 5/5 Skin: Warm and dry without any rash. Principal Diagnosis Degenerative spondylolisthesis with stenosis at L4-5, s/p lumbar fusion Atrial fibrillation with RVR Discharge Exam General- oriented x 3, not in distress, speaks in sentences with no effort or accessory muscle use Eyes- anicteric Neck- no JVD Lungs- clear breath sounds bilaterally, no rales/wheezes Heart- normal rate, regular rhythm; no murmurs Abdomen- normal bowel sounds, nondistended, soft, nontender Extremities- no pretibial edema, no calf tenderness Neuro- alert, oriented x 3; no gross focal neurologic deficits Skin- warm & dry Discharge Data Allergies Allergy/AdvReac Type Severity Reaction Status Date / Time amoxicillin [From Augmentin] Allergy Intermediate Diarrhea Unverified 10/12/24 17:43 clavulanic acid Allergy Intermediate Diarrhea Unverified 10/12/24 17:43 [From Augmentin] Sulfa (Sulfonamide Allergy Intermediate Agitated Unverified 10/12/24 17:44 Antibiotics) simvastatin AdvReac Intermediate lichen Verified 10/12/24 17:43 planus rash when dose was increased Consultations 10/12/24 18:05 ED Decision to Admit Stat 10/13/24 07:43 Consult Orthopedic Spine Surgery Routine 10/13/24 08:00 Consult Orthopedic Spine Surgery Routine 10/15/24 05:13 Consult Cardiology Routine Procedures Performed Operation Date: 10/20/24 07:30 Actual Procedures p L4-L5 Decompression and Posterior Instrumentation Fusion, Spinal Cord Monitor ing(Not Applicable) - Abhijeet Anrold MD Ordered Studies 10/12/24 14:07 US venous doppler LE Stat FINDINGS: Paired veins in the left popliteal fossae with gastrocnemius vein appear non-compressible and show no flow , signifying thromboses. Normal phasic, non-pulsatile and spontaneous flow is noted in bilateral common femoral, superficial femoral, popliteal, anterior tibial, posterior tibial and peroneal veins. Rest of the visualized veins of both lower extremities demonstrate normal compressibility. No sonographic evidence of acute deep vein thrombosis (DVT) is detected in the rest of the visualized veins of both lower extremities. Compression and Augmentation: All evaluated veins except for the paired left popliteal/gastrocnemius vein compress fully with applied transducer pressure. Augmentation of venous flow is noted with distal compression in the rest of the bilateral lower extremity veins. Additional Findings: A small complicated cyst in the right popliteal fossa measuring 2.1 x 2.2 x 0.7cm. IMPRESSION: 1. Paired left popliteal veins with an acute thrombosed vein, likely the gastrocnemius. 2. A small complicated cyst in the right popliteal fossa measuring 2.1x 2.2 x .7cm. 3. No sonographic evidence of acute DVT was detected in the rest of the bilateral common femoral, superficial femoral, right popliteal, bilateral anterior tibial, posterior tibial, and peroneal veins, at the time of examination. Disclaimer: DVT could be missed early in the disease when clot burden is minimal. For patients with moderate and high pretest probability of DVT and negative ultrasound, the [employer] clinical guidelines recommend testing with a D-dimer assay or repeat ultrasound in 5-7 days. If symptoms worsen, the Society of radiologists in ultrasound recommends repeating ultrasound even earlier. 10/12/24 18:21 MR lumbar spine wo con Routine FINDINGS: Vertebrae: There are 5 lumbar type vertebral bodies with a mild generalized curved to the left and normal lumbar lordosis. There is a mild grade 1 anterolisthesis of L4 and L5 measuring 5.5 mm. Otherwise, is normal vertebral body height and alignment. The bone mesial is heterogeneous with reactive endplate changes. No acute fracture. Spinal cord: The conus demonstrates a stretch morphology, terminating at T12-L1. Soft tissues: Advanced atrophy of the iliopsoas, paraspinous intraspinous musculature. The aorta and IVC flow voids are intact. The visualized kidneys are unremarkable. DISCS/SPINAL CANAL/NEURAL FORAMINA: L1-L2: There is mild disc degeneration with annular disc bulge flattening the ventral thecal sac with disc extending to the neural foramina without evidence of impingement or significant stenosis. L2-L3: Moderate disc degeneration with annular disc bulge causing a mild left subarticular recess stenosis with disc and osteophyte extending to the neural foramina causing a mild right stenosis without neural impingement. L3-L4: There is mild disc degeneration with annular disc bulge asymmetric to the left causing a mild subarticular recess stenosis with disc and osteophyte extending to the neural foramina causing a mild right stenosis without evidence of neural impingement. L4-L5: There is mild disc degeneration with annular disc bulge causing a severe subarticular recess stenosis with impingement of the transiting L5 nerve roots, superimposed spondylolisthesis and facet arthropathy causing a critical spinal canal stenosis with complete effacement of thecal sac. There is disc and osteophyte extending to the neural foramina causing mild bilateral stenosis without evidence of neural impingement. There is advanced facet arthropathy with moderate to advanced synovitis with bone marrow edema and inflammation of the sinus soft tissues. L5-S1: Moderate disc degeneration with annular disc bulge causing a mild subarticular recess stenosis with disc and osteophyte extending to the neural foramina without evidence of impingement or significant stenosis. IMPRESSION: Mild disc degeneration at L4-5 with annular disc bulge causing a severe subarticular recess stenosis with impingement transiting L5 nerve roots and a critical spinal canal stenosis with effacement of the thecal sac. Recommend neurosurgical consult for decompression. 10/20/24 06:30 CT lumbar spine wo con Routine FL lumbar spine 2-3V Routine Hospital Course (1) Low back pain potentially associated with radiculopathy: (2) Ambulatory dysfunction: (3) Left leg DVT: (4) Acute UTI: (5) HTN (hypertension): (6) HLD (hyperlipidemia): (7) Carotid artery stenosis: Plan Plan 79 year old female with PMH significant for HTN, HLD, carotid artery stenosis, CKD III, depression, vitamin D deficiency, and stress incontinence who is admitted for intractable back pain. Acute low back pain with radiculopathy Ambulatory dysfunction Lumbar spine MRI revealed mild disc degeneration at L4-5 with annular disc bulge causing severe subarticular recess stenosis with impingement and a critical spinal canal stenosis with effacement of the thecal sac Pain control with scheduled tylenol tid and PRN tramadol PT consult: reduced tolerance to activities, ROM, strength OT consult: impaired ADL participation, reduced functional mobility, decreased activity tolerance, fear of falling Ortho spine surgery consult: IV decadron daily, recommend surgical intervention if patient does not have significant improvement 10/19 Patient for L4/L5 decompression fusion procedure tomorrow by Dr. Arnold Patient is moderate risk for cardiopulmonary complications perioperatively in light of, age group, however no medical contraindication to proceed with above procedure tomorrow Which would greatly help patient's mobility, and prevent further complications of being sedentary including thromboembolism, pneumonia, skin ulcers, etc. explained to patient and daughter, they are understanding and agreeable to proceed with surgery tomorrow management of anticoagulation for treatment of acute DVT per below recommend to monitor patient in MedSurg telemetry at least 24 hours after surgery 10/20 S/p L4-L5 decompression fusion, by Dr. Arnold Stable overall Needs to be restarted on Eliquis twice daily for acute lower extremity DVT once hemostasis stable per orthopedic spine service Pain control PT OT eval LLE DVT Venous duplex revealed 1. Paired left popliteal veins with an acute thrombosed vein, likely the gastrocnemius. 2. A small complicated cyst in the right popliteal fossa measuring 2.1x 2.2 x .7cm. Apixaban 10mg bid x 7 days then 5mg bid thereafter 10/19 Eliquis held this morning Will bridge with heparin drip this afternoon, to be stopped at 1 AM in preparation for the procedure tomorrow Discussed with Dr. Arnold 10/20 Needs to be restarted on Eliquis twice daily for acute lower extremity DVT once hemostasis stable per orthopedic spine service Risk factor for DVT includes not ambulating as frequently due to back pain -> will need AC indefinitely given Afib Acute UTI UA +nitrites, leuk esterase, bacteria Patient asymptomatic but disclosed that she had a UTI 3 weeks ago and was prescribed Augmentin but did not complete the course due to diarrhea Urine culture positive with E coli Ceftriaxone 5/5 day course completed Episode of Aflutter seen by cardiology - continue Eliquis do not recommend AV blocking agent d/t episodes of bradycardia Full Recommendations: * Continue Eliquis. * Will not add AV rodriguez blocking agents/beta-sherine at this time due to intermittent bradycardia. * Risk factors for obstructive sleep apnea noted, consider nocturnal pulse ox trend and/or outpatient sleep medicine evaluation. * Outpatient 14-day ZIO monitor. * Results of echocardiogram reviewed with patient. * Routine outpatient vascular surgery follow-up of chronic, moderate asymptomatic right internal carotid artery stenosis * No further inpatient testing recommended at this time. Afib RVR 10/21/24 discussed w/ cardiology, Dr. Frias, started on iv amiodarone - was transferred to PCU - will need anticoagulation, currently on IV heparin, will switch to Eliquis tonight - converted to sinus rhythm, amiodarone switch to PO - Goal amiodarone 200 mg twice per day on discharge x 1 week then daily Follow-up cardiology 4 to 6 weeks HTN Continue losartan Holding chlorthalidone HLD held baby aspirin in light of surgery CKD III BUN 30 and creat 0.85 this am Patient received 500mL NS on 10/17 due to Na 129 and Cl 95 10/18 Na is 132 and Cl 99 - encouraged patient to hydrate 10/20 Na 135 monitor Stress incontinence Continue oxybutynin DVT Prophylaxis: Marsha[place]haley PCP: Latrice Narvaez PA-C Disposition: [facility] Total Time Total Time Spent Total Time Spent (In Minutes): 60 Discharge Plan Discharge Items Patient Disposition: Transfer Acute Care Hospital Reason For Visit: BACK PAIN Discharge Diagnosis: Degenerative spondylolisthesis with stenosis at L4-5, s/p lumbar fusion Atrial fibrillation with RVR Activity: Per Instructions section Non-emergency contact: Primary Care Provider, Surgeon and Cashier Clerk Call non-emergency contact if: you have any medication questions and your symptoms worsen Follow-up/Referrals: [place],[facility] [Non-Staff] - [place],[facility] [Non-Staff] - Latrice Narvaez PA-C [Primary Care Provider] - Diet: Heart Healthy Addtl Attending Provider Instructions: Follow up with primary care doctor, orthopedic surgeon, 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 Take amiodarone 200 mg twice a day for 1 week, then take daily. Take Eliquis 5 mg twice a day. Pending Studies at Discharge: No Stand-Alone Forms: [facility] Skilled Items Patient informed of condition?: Yes DNR: No Discharge Level of Care: Acute rehab Communicable Disease: No Discharge Prognosis: Stable Lines: None Urinary Catheter: No Medications and DC Order Prescriptions: New amiodarone 200 mg Tablet 200 mg PO UD Qty: 60 0RF Rx Instructions: Take twice a day for 1 week, then take daily. Eliquis 5 mg Tablet 5 mg PO BID Qty: 60 0RF acetaminophen [Tylenol Extra Strength] 500 mg Tablet 1,000 mg PO Q8H PRN (Reason: pain) Qty: 10 0RF sennosides-docusate sodium [Senokot-S] 8.6-50 mg Tablet 2 tab PO HS Qty: 14 0RF melatonin 3 mg Tablet 6 mg PO HS PRN (Reason: sleep) Qty: 6 0RF oxycodone 5 mg tablet 5 mg PO Q4H PRN (Reason: pain) Qty: 10 0RF Continued oxybutynin chloride 5 mg Tablet 5 mg PO TID Qty: 0 fenofibrate micronized 200 mg Capsule 200 mg PO DAILY Qty: 0 clobetasol 0.05 % Cream 1 applic TOPICAL BID PRN (Reason: reaction) Qty: 0 aspirin 81 mg Tablet,Chewable 81 mg PO DAILY Qty: 0 cholecalciferol (vitamin D3) [Vitamin D3] 50 mcg (2,000 unit) Tablet 50 mcg PO DAILY Qty: 0 prednisone 10 mg Tablets,Dose Pack 10 mg PO DIRECTED Rx Instructions: see taper instructions calcium carbonate [Calcium 600] 600 mg calcium (1,500 mg) Tablet 600 mg PO DAILY cyanocobalamin (vitamin B-12) [Vitamin B-12] 500 mcg Tablet 500 mcg PO DAILY lorazepam 1 mg Tablet 1 mg PO BID PRN (Reason: Anxiety/Stress) Rx Instructions: left at home vitamin E 268 mg (400 unit) Capsule 268 mg PO DAILY Held losartan 50 mg Tablet 50 mg PO DAILY Hold Instructions: Resume on 10/26/24. discuss with primary care doctor when to resume chlorthalidone 25 mg Tablet 25 mg PO DAILY Hold Instructions: Resume on 10/31/24. until seen by primary care doctor Discharge Orders: Discharge Order (Routine); Ordered 10/24/24 Ordered By: Lloyd Osman Admission Data Admit Date/Time: 10/12/24 18:21 Attending Provider: Lloyd Osman Admit Provider: Serina Mccauley Primary Care Provider: Latrice Narvaez Other Providers: Abhijeet Arnold; IR[employer] Approved Study,[place]; [facility]; [facility]; [place],[facility]; Sam Cruz; Serina Mccauley; Sukhi Rondon; Boby cShuster; Linn Mayer; Fredi Roberto; Charles Edouard; Ever Frias
[2024-10-24 11:14] VITALS: RESP 20; TEMP 97.7; O2SAT 94
[2024-10-24 12:07] VITALS: BP 109/62; PULSE 67
--- NOTE | 2024-10-24 12:36 | Electrocardiogram Report ---
Test Reason : Blood Pressure : */* mmHG Vent. Rate : 77 BPM Atrial Rate : 77 BPM P-R Int : 192 ms QRS Dur : 86 ms QT Int : 392 ms P-R-T Axes : 71 75 27 degrees QTcB Int : 443 ms Normal sinus rhythm Normal ECG When compared with ECG of 23-Oct-2024 05:36, No significant change was found Confirmed by En Mccarty ([id number]) on 10/24/2024 12:36:05 PM Referred By: REFERRED SELF Confirmed By: En Mccarty
== END 2024-10-24 14:27 | disposition short-term general hospital (02) | DRG 451 ==
LOC: ED 13:22 → SUATTDRO 18:21 → 2N 18:21 → 2S 10-21 16:55